=== PATIENT | male | born 1950 | race Caucasian/White ===

== ENCOUNTER 2017-08-14 08:59 | Day surgery (SDC) | payer OTHER ==
[~2017-08-14] VITALS: Ht 170.2 cm; Wt 99.8 kg
[~2017-08-14 08:59] MED LIST: AMIT50 PO; AMLO5 PO; ASCO500 PO; ASPI81CH PO; Augmentin 500-1 EACH PO; Bactrim Ds Tab1 EACH PO; CHOL10002 PO; CITA20 PO; CLON.2 PO; CLON.3 PO; CLOP75 PO; CYAN100 PO; Cleocin HCl300 MG PO; DILTIAZEM 24HR360 M1 PO; GLIP10 PO; INS70/30I; INS70/30PN SC; INSUL100I SC; LISHYD2025 PO; LISI20 PO; METF500 PO; POTCHL10ER PO; PRAV20 PO; TRAZ50 PO; Vitamin D2000 UNIT PO
== END 2017-08-14 22:57 | disposition home or self-care (01) ==
LOC: ORSCMMR 08:59
PROVIDERS: Internal Medicine Gastroenterology
PROC: 0DBM8ZX Excision of Descending Colon, Via Natural or Artificial Opening Endoscopic, Diagnostic (ICD-10-PCS; principal; 2017-08-14 10:30)
DX: R19.5 Other fecal abnormalities (principal); K63.5 Polyp of colon; K57.30 Diverticulosis of large intestine without perforation or abscess without bleeding; E11.9 Type 2 diabetes mellitus without complications; I10 Essential (primary) hypertension; I25.10 Atherosclerotic heart disease of native coronary artery without angina pectoris; Z79.82 Long term (current) use of aspirin; Z79.899 Other long term (current) drug therapy
CPT/HCPCS: 82947; 88305; J7120

== ENCOUNTER 2018-02-06 12:29 | Day surgery (SDC) | payer OTHER ==
[~2018-02-06] VITALS: Ht 170.2 cm; Wt 92.9 kg
== END 2018-02-06 15:56 | disposition home or self-care (01) ==
LOC: ORSCSDS 12:29
PROVIDERS: Podiatrist
PROC: 0QBM0ZZ Excision of Left Tarsal, Open Approach (ICD-10-PCS; principal; 2018-02-06 14:00)
DX: M77.52 Other enthesopathy of left foot and ankle (principal); R22.41 Localized swelling, mass and lump, right lower limb; E11.40 Type 2 diabetes mellitus with diabetic neuropathy, unspecified; I10 Essential (primary) hypertension; I25.10 Atherosclerotic heart disease of native coronary artery without angina pectoris; E78.00 Pure hypercholesterolemia, unspecified; Z87.891 Personal history of nicotine dependence; Z79.899 Other long term (current) drug therapy; Z79.84 Long term (current) use of oral hypoglycemic drugs
CPT/HCPCS: 82947; 88305; J0690; J2250; J7120

== ENCOUNTER 2020-11-03 10:59 | Day surgery (SDC) | payer OTHER ==
[~2020-11-03] VITALS: Ht 172.7 cm; Wt 97.6 kg
[~2020-11-03 10:59] MED LIST changes: +Aspirin EC81 MG PO; +GABA300 PO; +GLUCOPHAGE1000 M1 PO; +NORVASC5 MG PO; +NOVOLIN 70100 UNIT/3 SC; +POTA10T PO; +Pravastatin Sod40 MG PO; +VITAMIN D325 MC3 PO; +ZESTORETIC 20-251 EA PO
== END 2020-11-03 14:15 | disposition home or self-care (01) ==
LOC: ORSCSDS 10:59
PROVIDERS: Podiatrist
PROC: 0Y6M0ZB Detachment at Right Foot, Partial 2nd Ray, Open Approach (ICD-10-PCS; principal; 2020-11-03 12:30)
PROC: 0Y6M0Z9 Detachment at Right Foot, Partial 1st Ray, Open Approach (ICD-10-PCS; principal; 2020-11-03 12:30)
PROC: 0Y6M0ZC Detachment at Right Foot, Partial 3rd Ray, Open Approach (ICD-10-PCS; principal; 2020-11-03 12:30)
PROC: 0Y6M0ZF Detachment at Right Foot, Partial 5th Ray, Open Approach (ICD-10-PCS; principal; 2020-11-03 12:30)
PROC: 0Y6M0ZD Detachment at Right Foot, Partial 4th Ray, Open Approach (ICD-10-PCS; principal; 2020-11-03 12:30)
DX: L97.521 Non-pressure chronic ulcer of other part of left foot limited to breakdown of skin (principal); M20.41 Other hammer toe(s) (acquired), right foot; E11.51 Type 2 diabetes mellitus with diabetic peripheral angiopathy without gangrene; I10 Essential (primary) hypertension; N18.9 Chronic kidney disease, unspecified; E11.40 Type 2 diabetes mellitus with diabetic neuropathy, unspecified; I25.10 Atherosclerotic heart disease of native coronary artery without angina pectoris; Z79.01 Long term (current) use of anticoagulants; Z87.891 Personal history of nicotine dependence; Z79.84 Long term (current) use of oral hypoglycemic drugs
CPT/HCPCS: 82947; 88307; 88311; A9270; J0690; J1100; J2405; J2704; J3010

== ENCOUNTER 2020-11-30 09:35 | Inpatient (IN) | payer OTHER, MEDICARE ==
[~2020-11-30] VITALS: Ht 172.7 cm; Wt 98.6 kg
[2020-11-30 10:14] LABS: BASOPHILS ABSOLUTE AUTO 0.05 K/mm3 (0.00-0.23); BASOPHILS PERCENT AUTO 0 % (0-2); EOSINOPHILS PERCENT AUTO 0 % (0-6); Hematocrit 34.6 % (37.0-53.0); IMMATURE GRAN ABSOLUTE AUTO 0.35 K/mm3 (0.00-0.10); IMMATURE GRAN PERCENT AUTO 2 % (0-1); LYMPHOCYTES ABSOLUTE AUTO 1.04 K/mm3 (0.84-5.20); LYMPHOCYTES PERCENT AUTO 6 % (21-46); MONOCYTES ABSOLUTE AUTO 1.22 K/mm3 (0.16-1.47); MONOCYTES PERCENT AUTO 7 % (4-13); Mean Corpuscular HGB 29.3 pg (26.0-34.0); Mean Corpuscular HGB Conc 34.7 g/dL (31.5-36.5); Mean Corpuscular Volume 84 fL (80-100); Mean Platelet Volume 9.8 fL (9.1-12.4); NEUTROPHILS PERCENT AUTO 85 % (41-73); Platelet Count 395 K/mm3 (150-400); RDW Coefficient Variation 12.4 % (11.7-14.2); White Blood Cell Count 17.66 K/mm3 (4.00-11.30)
[2020-11-30 10:35] LABS: Albumin, Blood 2.9 g/dL (3.4-5.0); Albumin/Globulin Ratio 0.6 (0.8-1.8); Bilirubin, Total 0.5 mg/dL (0.1-1.0); Calcium, Blood 10.8 mg/dL (8.5-10.1); Creatinine, Blood 1.28 mg/dL (0.60-1.20); Globulin, Blood 4.9 g/dL (2.2-4.0); Potassium, Blood 3.8 mmol/L (3.5-5.5); Total Protein, Blood 7.8 g/dL (6.4-8.2)
[2020-11-30] MEDS ORDERED: AMOCLA875 PO (12:23)
[2020-11-30] MEDS ORDERED: Zofran4 MG PO (12:23)
[2020-11-30] MEDS ORDERED: AMLO5 PO (12:35)
[2020-11-30] MEDS ORDERED: NOVOLIN 70100 UNIT/4 SC (13:46)
[2020-11-30 17:03] LABS: Source, Urine Clean Catch
[2020-11-30 17:09] LABS: Bilirubin, Urine Neg (Neg); Blood, Urine 3+ (Neg); Glucose Qualitative, Urine 4+ (Neg); Ketones, Urine 1+ (Neg); Leukocyte Esterase, Urine Neg (Neg); Nitrite, Urine Neg (Neg); Protein, Urine 3+ (Neg); Urobilinogen, Urine NORM (Normal)
--- NOTE | 2020-11-30 17:10 | NUR ---
SPOKE WITH DR. BETH REGARDING CRITICAL LOW MAG. TELEPHONE ORDER GIVEN FOR 2G MAG IV AND REPEAT MAG LAB IN AM. ORDERS PLACED.
[2020-11-30 17:31] LABS: Color, Urine Yellow (P-Yellow)
[2020-11-30 17:32] LABS: Appearance, Urine Clear (Clear); White Blood Cells, Urine 0-2 /hpf (0-5)
[2020-11-30 17:33] LABS: Bacteria Rare /hpf; Hyaline Casts 0-2 /lpf (0-2); Squamous Epithelial Cells Rare /hpf (Few)
--- NOTE | 2020-11-30 17:40 | NUR ---
SHIFT SUMMARY; ASSUMED CARE IN PCU FROM ER. MOVED FROM ER [facility]ALLAS TO BED INDEPENDANLTY. A/A/OX4, IV ABX AND NS INFUSING ON ARRIVAL. 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 SURGICAL SITE IS RED AND DAINING YELLOW-SERIOUSANGUINOUS FLUID. REWRAPPED WITH NON ADHERANT AND KERLEX. SECOND IV STARTED IN RIGHT FOREARM. MAG INFUSING AND NS INFUSING AT 125ML/HR PER ORDERS. REPOSITIONS SELF IN BED NEEDED, USING URINAL AT BEDSIDE. STATES AMBULATES AT HOME WITH A CANE. ORDERS IN PLACE FOR NPO AFTER MIDNIGHT. VSS, WILL CONTINUE TO MONITOR AND TREAT UNTIL CHANGE OF SHIFT.
[2020-12-01 02:04] LABS: BASOPHILS ABSOLUTE AUTO 0.06 K/mm3 (0.00-0.23); BASOPHILS PERCENT AUTO 0 % (0-2); EOSINOPHILS PERCENT AUTO 0 % (0-6); Hematocrit 29.9 % (37.0-53.0); Hemoglobin 10.2 g/dL (13.5-17.5); IMMATURE GRAN ABSOLUTE AUTO 0.21 K/mm3 (0.00-0.10); IMMATURE GRAN PERCENT AUTO 2 % (0-1); LYMPHOCYTES ABSOLUTE AUTO 1.41 K/mm3 (0.84-5.20); LYMPHOCYTES PERCENT AUTO 10 % (21-46); MONOCYTES ABSOLUTE AUTO 0.92 K/mm3 (0.16-1.47); MONOCYTES PERCENT AUTO 7 % (4-13); Mean Corpuscular HGB 28.7 pg (26.0-34.0); Mean Corpuscular HGB Conc 34.1 g/dL (31.5-36.5); Mean Corpuscular Volume 84 fL (80-100); Mean Platelet Volume 9.8 fL (9.1-12.4); NEUTROPHILS ABSOLUTE AUTO 11.42 K/mm3 (1.96-9.15); NEUTROPHILS PERCENT AUTO 81 % (41-73); Platelet Count 365 K/mm3 (150-400); RDW Coefficient Variation 12.6 % (11.7-14.2); RDW Standard Deviation 38.6 fL (35.1-46.3); Red Blood Cell Count 3.55 M/mm3 (4.30-5.90); White Blood Cell Count 14.02 K/mm3 (4.00-11.30)
[2020-12-01 02:23] LABS: Alanine Aminotransfer (ALT/SGP 15 U/L (12-78); Albumin, Blood 2.3 g/dL (3.4-5.0); Albumin/Globulin Ratio 0.5 (0.8-1.8); Alk Phos 62 U/L (50-136); Anion Gap 6 mmol/L (6-16); Aspartate Aminotrans (AST/SGOT 17 U/L (12-37); Bilirubin, Total 0.4 mg/dL (0.1-1.0); Blood Urea Nitrogen 24 mg/dL (8-24); Bun/Creatinine Ratio 20.7 (12.0-20.0); CO2, Blood 26 mmol/L (21-32); Calcium, Blood 9.2 mg/dL (8.5-10.1); Chloride, Blood 103 mmol/L (98-108); Creatinine, Blood 1.16 mg/dL (0.60-1.20); Globulin, Blood 4.2 g/dL (2.2-4.0); Glomerular Filtration Rate >60 (60-); Glucose, Blood 146 mg/dL (70-99); Magnesium, Blood 1.6 mg/dL (1.6-2.4); Potassium, Blood 3.5 mmol/L (3.5-5.5); Sodium, Blood 135 mmol/L (136-145); Total Protein, Blood 6.5 g/dL (6.4-8.2); Troponin I 0.088 ng/mL (0.000-0.040)
--- NOTE | 2020-12-01 06:17 | NUR ---
SHIFT SUMMARY NO ACUTE CHANGES THIS SHIFT. PT A&OX4. SP02>92% ON RA. TELMETRY READS SR, HR 90'S. PT DENIES PAIN. PT USED URINAL AT BEDSIDE, THOUGH MISSED URINAL A FEW TIMES AND SOILED FLOOR, HOUSEKEEPING CALLED TO CLEAN. PT R FOOT RE DRESSED, PICTURES TAKEN AND PLACED IN CHART. NS INFUSED PER EMAR. PT SLEPT MOST OF THE NIGHT. CALL LIGHT IN REACH. WILL GIVE REPORT TO ONCOMING NURSE.
--- NOTE | 2020-12-01 08:00 | NUR ---
pt laying in bed awake a/ox3, pleasant and cooperative with care, follows commands well, denies pain or needs at this time, is thirsty and would like water, lungs are clear t/o, dim in bases, resp even and unlabored, no cough noted, hrr, tele in place running sr in the 90's, no edema noted, iv infusing ns at 125mls/hr, btx4, abd round soft nontender, voids without diff, skin has wound to left foot where toes were amputated, pictures in chart, otherwise c/w/d, delmer carrasquillo, call light in reach. npo until notified about poss surgery.
--- NOTE | 2020-12-01 11:24 | NUR ---
Dr. Harding was contacted regarding poss surgery today, he states he wont be in until this evening, ok to eat. Istrate in room. call light in reach.
--- NOTE | 2020-12-01 18:48 | NUR ---
pt states he's feeling a lot better, does have some occ mild confusion, worked with PT today and got up to the chair, gave himself a bed bath. no further changes or needs, call light in reach.
[2020-12-02 04:09] LABS: Hematocrit 29.4 % (37.0-53.0); Hemoglobin 9.9 g/dL (13.5-17.5); Mean Corpuscular HGB 28.9 pg (26.0-34.0); Mean Corpuscular HGB Conc 33.7 g/dL (31.5-36.5); Mean Corpuscular Volume 86 fL (80-100); Mean Platelet Volume 9.7 fL (9.1-12.4); Platelet Count 341 K/mm3 (150-400); RDW Standard Deviation 40.9 fL (35.1-46.3); Red Blood Cell Count 3.42 M/mm3 (4.30-5.90); White Blood Cell Count 11.79 K/mm3 (4.00-11.30)
[2020-12-02 04:30] LABS: Alanine Aminotransfer (ALT/SGP 33 U/L (12-78); Albumin, Blood 2.1 g/dL (3.4-5.0); Albumin/Globulin Ratio 0.5 (0.8-1.8); Alk Phos 54 U/L (50-136); Anion Gap 7 mmol/L (6-16); Aspartate Aminotrans (AST/SGOT 54 U/L (12-37); Bilirubin, Total 0.2 mg/dL (0.1-1.0); Blood Urea Nitrogen 25 mg/dL (8-24); Bun/Creatinine Ratio 23.4 (12.0-20.0); CO2, Blood 25 mmol/L (21-32); Calcium, Blood 8.4 mg/dL (8.5-10.1); Chloride, Blood 104 mmol/L (98-108); Creatinine, Blood 1.07 mg/dL (0.60-1.20); Globulin, Blood 4.2 g/dL (2.2-4.0); Glomerular Filtration Rate >60 (60-); Glucose, Blood 58 mg/dL (70-99); Magnesium, Blood 1.6 mg/dL (1.6-2.4); Phosphorus, Blood 2.4 mg/dL (2.5-4.9); Potassium, Blood 3.2 mmol/L (3.5-5.5); Sodium, Blood 136 mmol/L (136-145); Total Protein, Blood 6.3 g/dL (6.4-8.2)
--- NOTE | 2020-12-02 06:14 | NUR ---
SHIFT SUMMARY NO ACUTE CHANGES THIS SHIFT. PT A&OX4. SP02>92% ON RA. TELEMETRY READS SR, HR 90'S. PT USED URINAL AT BEDSIDE. PT DENIES PAIN. NPO AT MIDNIGHT PER ORDERS. PT SLEPT T/O NIGHT. CALL LIGHT IN REACH. WILL GIVE REPORT TO ONCOMING NURSE.
--- NOTE | 2020-12-02 10:15 | NUR ---
PT LEFT FOR SURGERY VIA GURNEY.
[2020-12-02 10:42] LABS: Influenza A, PCR NEGATIVE (NEGATIVE); Influenza B, PCR NEGATIVE (NEGATIVE); Resp Syncytial Virus, PCR NEGATIVE (NEGATIVE); SARS-Cov-2 (COVID-19) PCR, MMC NEGATIVE (NEGATIVE)
--- NOTE | 2020-12-02 11:04 | NUR ---
PT LAYING IN BED, WAKES EASILY, V.S. STABLE, AFEBRILE, A/OX3, DIFF TRACKING CONVERSATION AT TIMES, LUNGS ARE CLEAR T/O, DIM BASES, RESP EVEN AND UNLABORED, NO COUGH NOTED, CURRENTLY ON R/A, HRR, TELE IN PLACE RUNNING SR PER MONITOR, SEE STRIP, NO EDEMA NOTED, PP FOUND VIA DOPPLER, IV SITES ARE CLEAR AND PATENT, INFUSING NS AT 125MLS/HR, BTX4, ABD ROUND SOFT NONTENDER, VOIDS VIA URINAL, BUT MISSES FREQ, SKIN HAS WOUND TO RIGHT FOOT WITH DRESSING IN PLACE, IS DRY AND INTACT, NO DRAINAGE NOTED, BRIAN GEE, CALL LIGHT IN REACH,
--- NOTE | 2020-12-02 11:33 | NUR ---
12/02/20 1133 SWATHIJHON PT RECEIVED SCHEDULED DOSE OF ANTIBIOTIC PER DR ORDERS PRIOR TO PROCEDURE
--- NOTE | 2020-12-02 12:57 | NUR ---
D5 @ 75ML AND D5 WITH K AT 100ML INFUSING PER PUMP WHEN ARRIVED IN PACU
--- NOTE | 2020-12-02 13:06 | NUR ---
DR MARTINEZ AT BEDSIDE AWARE OF PT FEELING HIS TONGUE IS SWOLLEN. TONGUE DOES APPEAR LARGE . THINKS NO LARGER NOW THAN PRE OP RESP E/U O2 AT 4 L N/C USING MOIST SWAB NO NEW ORDERS FROM
--- NOTE | 2020-12-02 14:00 | NUR ---
ASSUMED CARE: PT ARRIVES POST CODE BLUE FROM OR. DEBRIDEMENT OF RIGHT FOOT COMPLETED BY DR SALEH. CODE CALLED BECAUSE PT'S AIRWAY BECAME SWOLLEN AND LOST AIRWAY. SEE CODE SHEET IN CHART. BILATERAL WRIST RESTRAINTS APPLIED. MAGUIRE CATHETER IN PLACE. INTUBATED WITH SETTINGS AC 14/500/40/5.
[2020-12-02 14:03] LABS: Hematocrit 38.6 % (37.0-53.0); Hemoglobin 12.7 g/dL (13.5-17.5); Mean Corpuscular HGB 28.2 pg (26.0-34.0); Mean Corpuscular HGB Conc 32.9 g/dL (31.5-36.5); Mean Corpuscular Volume 86 fL (80-100); Mean Platelet Volume 9.6 fL (9.1-12.4); NRBC ABSOLUTE 0.02 K/mm3 (0.00-0.02); NRBC Auto 0.2 /100 WBC (0.0-0.2); Platelet Count 468 K/mm3 (150-400); RDW Standard Deviation 40.5 fL (35.1-46.3); White Blood Cell Count 11.51 K/mm3 (4.00-11.30)
[2020-12-02 14:13] LABS: Anion Gap 10 mmol/L (6-16); Blood Urea Nitrogen 21 mg/dL (8-24); Bun/Creatinine Ratio 18.4 (12.0-20.0); CO2, Blood 24 mmol/L (21-32); Calcium, Blood 8.1 mg/dL (8.5-10.1); Chloride, Blood 102 mmol/L (98-108); Creatinine, Blood 1.14 mg/dL (0.60-1.20); Glomerular Filtration Rate >60 (60-); Glucose, Blood 130 mg/dL (70-99); Magnesium, Blood 1.5 mg/dL (1.6-2.4); Phosphorus, Blood 3.3 mg/dL (2.5-4.9); Sodium, Blood 136 mmol/L (136-145)
[2020-12-02 14:18] LABS: International Normalized Ratio 1.12
[2020-12-02 14:28] LABS: BAND PERCENT MAN 7 % (0-8); BASOPHILS PERCENT MAN 0 % (0-2); EOSINOPHILS ABSOLUTE MAN 0.23 K/mm3 (0.00-0.68); EOSINOPHILS PERCENT MAN 2 % (0-6); LYMPHOCYTES % ATYPICAL MANUAL 1 % (0-0); LYMPHOCYTES PERCENT MAN 39 % (21-46); METAMYELOCYTE ABSOLUTE MAN 0.34 K/mm3 (0.00-0.00); METAMYELOCYTE PERCENT MAN 3 % (0-0); MONOCYTES ABSOLUTE MAN 0.46 K/mm3 (0.16-1.47); MONOCYTES PERCENT MAN 4 % (4-13); MYELOCYTE ABSOLUTE MAN 0.11 K/mm3 (0.00-0.00); MYELOCYTE PERCENT MAN 1 % (0-0); NEUTROPHILS ABSOLUTE MAN 5.75 K/mm3 (1.96-9.15); SEG NEUTROPHILS PERCENT MAN 43 % (41-73); TOTAL CELLS COUNTED 100
[2020-12-02 14:32] LABS: Base Excess Venous -0.9 mmol/L; Bicarbonate Venous 22.9 mmol/L (24.0-30.0); PCO2 Venous 42.4 mmHg (38-42); PO2 Venous 34.9 mmHg (38-42); pH Blood Venous 7.37 (7.34-7.37)
[2020-12-02 15:12] LABS: Vancomycin, Trough 8.6 ug/mL (5.0-10.0)
--- NOTE | 2020-12-02 15:12 | NUR ---
TRANSFER TO ICU 13 PER ANIKA AT 1340 SEE CODE RECORD
--- NOTE | 2020-12-02 15:21 | NUR ---
DR DELGADILLO CAME TO SEE PT AND WAS MADE AWARE OF INCREASED SWELLING OF TONGUE AT 2.5CM IN THICKNESS. SWELLING AROUND EYES INCREASED AND URTICARIA NOTED TO ABDOMEN AND CRAWLING DOWN LEGS. SEDATION WITH PROPOFOL AT 50MCG/KG/MIN AT THIS TIME. DR DELGADILLO ORDERED EPI GTT AT 0.05MCG/MIN AT THIS TIME. ASSISTANT STORE LEADER PLACING PICC LINE AT THIS TIME. DR DELGADILLO INSTRUCTS FOR BOLUS OF LR AND FOR PREVIOUSLY ORDERED POTASSIUM TO BE GIVEN.
--- NOTE | 2020-12-02 16:18 | NUR ---
EPI REMAINS AT 0.05MCG/KG WITH PROPOFOL AT 50 MCG/KG/MIN. HIVES TO ABDOMEN AND LEGS NO LONGER NOTED. SWELLING AROUND EYES IS LESSENED AND TONGUE HAS DECREASED TO 2CM THICK. PT MOVES ALL EXTREMITIES IN RESPONSE TO NOXIOUS STIMULI
--- NOTE | 2020-12-02 18:00 | NUR ---
PT'S VANCO WAS RUNNING AND PT WAS NOTED TO HAVE INCREASD EDEMA AROUND EYES AND TONGUE SWELLING HAD WORSENED. BREATH SOUNDS WENT FROM CLEAR UPON ARRIVAL TO COARSE. STOPPED VANCO AND CALLED DR DELGADILLO TO ROOM. AGRICULTURAL ENGINEER AWARE. MED CHANGES MADE WITH CONCERN FOR POSSIBLE REACTION.
--- NOTE | 2020-12-02 18:44 | NUR ---
SHIFT SUMMARY: PT REMAINS INTUBATED AT 14/500/30%/5. PROPOFOL AT 60MCG/KG/MIN. EPI AT 0.1 MCG/KG. AGITATED AT TIMES. RECENTLY MEDICATED WITH ATIVAN. WILL REPORT TO REZA RN
[2020-12-03 00:33] LABS: Glucose, Blood 619 mg/dL (70-99)
--- NOTE | 2020-12-03 02:20 | NUR ---
PATIENT BLOOD GLUCOSE ON ISTAT 601 AT 0220
[2020-12-03 03:15] LABS: BASOPHILS ABSOLUTE AUTO 0.12 K/mm3 (0.00-0.23); BASOPHILS PERCENT AUTO 1 % (0-2); EOSINOPHILS PERCENT AUTO 0 % (0-6); Hematocrit 32.9 % (37.0-53.0); Hemoglobin 11.1 g/dL (13.5-17.5); IMMATURE GRAN ABSOLUTE AUTO 1.27 K/mm3 (0.00-0.10); IMMATURE GRAN PERCENT AUTO 5 % (0-1); LYMPHOCYTES ABSOLUTE AUTO 1.47 K/mm3 (0.84-5.20); LYMPHOCYTES PERCENT AUTO 6 % (21-46); MONOCYTES ABSOLUTE AUTO 0.82 K/mm3 (0.16-1.47); MONOCYTES PERCENT AUTO 4 % (4-13); Mean Corpuscular HGB 28.8 pg (26.0-34.0); Mean Corpuscular HGB Conc 33.7 g/dL (31.5-36.5); Mean Corpuscular Volume 85 fL (80-100); Mean Platelet Volume 9.8 fL (9.1-12.4); NEUTROPHILS PERCENT AUTO 84 % (41-73); NRBC ABSOLUTE 0.03 K/mm3 (0.00-0.02); NRBC Auto 0.1 /100 WBC (0.0-0.2); Platelet Count 506 K/mm3 (150-400); RDW Standard Deviation 40.3 fL (35.1-46.3); Red Blood Cell Count 3.86 M/mm3 (4.30-5.90); White Blood Cell Count 23.48 K/mm3 (4.00-11.30)
[2020-12-03 03:33] LABS: BAND PERCENT MAN 3 % (0-8); BASOPHILS PERCENT MAN 0 % (0-2); EOSINOPHILS PERCENT MAN 0 % (0-6); LYMPHOCYTES ABSOLUTE MAN 1.87 K/mm3 (0.84-5.20); LYMPHOCYTES PERCENT MAN 8 % (21-46); METAMYELOCYTE ABSOLUTE MAN 0.93 K/mm3 (0.00-0.00); METAMYELOCYTE PERCENT MAN 4 % (0-0); MONOCYTES ABSOLUTE MAN 0.46 K/mm3 (0.16-1.47); MONOCYTES PERCENT MAN 2 % (4-13); NEUTROPHILS ABSOLUTE MAN 20.19 K/mm3 (1.96-9.15); SEG NEUTROPHILS PERCENT MAN 83 % (41-73); TOTAL CELLS COUNTED 100
[2020-12-03 03:34] LABS: Alanine Aminotransfer (ALT/SGP 36 U/L (12-78); Albumin, Blood 2.1 g/dL (3.4-5.0); Albumin/Globulin Ratio 0.5 (0.8-1.8); Alk Phos 68 U/L (50-136); Anion Gap 11 mmol/L (6-16); Aspartate Aminotrans (AST/SGOT 98 U/L (12-37); Bilirubin, Total 0.3 mg/dL (0.1-1.0); Blood Urea Nitrogen 26 mg/dL (8-24); Bun/Creatinine Ratio 21.5 (12.0-20.0); CO2, Blood 20 mmol/L (21-32); Calcium, Blood 7.7 mg/dL (8.5-10.1); Chloride, Blood 98 mmol/L (98-108); Creatinine, Blood 1.21 mg/dL (0.60-1.20); Globulin, Blood 4.3 g/dL (2.2-4.0); Glomerular Filtration Rate >60 (60-); Glucose, Blood 583 mg/dL (70-99); Magnesium, Blood 1.6 mg/dL (1.6-2.4); Phosphorus, Blood 3.4 mg/dL (2.5-4.9); Potassium, Blood 3.8 mmol/L (3.5-5.5); Sodium, Blood 129 mmol/L (136-145); Total Protein, Blood 6.4 g/dL (6.4-8.2)
--- NOTE | 2020-12-03 06:34 | NUR ---
END OF SHIFT SUMMARY: PATIENT KEPT SEDATED OVERNIGHT FOR AIRWAY PROTECTION. PATIENT HAS REMAINED IN NSR SINCE PRECEDEX WAS STARTED AT START OF SHIFT. NO VENT CHANGES OVERNIGHT AND HAS TOLERATED THE CURRENT SETTINGS. NO ORAL CARE PROVIDED OVERNIGHT PER DR. DELGADILLO AMD WILL PASS ON TO UPCOMING SHIFT.
--- NOTE | 2020-12-03 07:32 | NUR ---
ASSUMED CARE: PT REMAINS INTUBATED WITH SETTINGS OF AC 14/500/30%/5. EPI GTT RUNNING AT 0.1 MCG/KG. PRECEDEX RUNNING AT 0.2MCG. PROPOFOL AT 50MCG. INSULIN GTT ADJUSTED TO 8 UNITS/HR. SWELLING AROUND EYES NOTED AND TONGUE SWELLING CONTINUES. NSR ON TELE WITH PACS AND PVCS. MAGUIRE IN PLACE WITH ADEQUATE OUTPUT. NO ACUTE NEEDS AT THIS TIME.
--- NOTE | 2020-12-03 11:46 | NUR ---
DR DELGADILLO CAME TO SEE PT THIS AM AND ORDERED A TRIAL OF LOW DOSE CEFEPIME TO RULE OUT CAUSE FOR ANAPHYLAXIS. EPI HAS BEEN OFF FOR 90 MINUTES. PT CURRENTLY RESTING COMFORTABLE WITH PRECEDEX AT 0.2MCG AND PROPOFOL AT 40 MCG. MINIMAL SWELLING NOTED AROUND EYES, TONGUE MEASURING AT 1.75 CENTIMETERS THICK. NO URTICARIA NOTED T/O BODY AT THIS TIME. LUNG SOUNDS CLEAR
--- NOTE | 2020-12-03 13:38 | NUR ---
ABOUT 90 MINUTES AFTER LOW DOSE OF CEFEPIME GIVEN PT BECAME DIAPHORETIC WITH INCREASED TONGUE SWELLING AND COARSE LUNG SOUNDS. CONTACTED DR DELGADILLO WHO INSTRUCTED TO RESTART EPI. EPI RESTARTED AT 0.05MCG/KG. INSTRUCTED TO LIST CEFEPIME ALLERGY
--- NOTE | 2020-12-03 14:14 | NUR ---
PT APPEARS TO BE TOLERATING EPI AT 0.05 MCG/KG. SWELLING IN TONGUE AND AROUND EYES IS DECREASING. PT OPENS EYES TO SOUND AND ATTEMPTS TO FOLLOW INSTRUCTIONS. MOVES ALL EXTREMETIES WITH WEAKNESS IN HANDS BUT DOES MOVE THESE WELL. PRECEDEX AT 0.2MCG AND PROPOFOL AT 30MCG AT THIS TIME.
--- NOTE | 2020-12-03 15:30 | NUR ---
DR DELGADILLO CAME TO SEE PT AND INSTRUCTS TO KEEP EPI RUNNING FOR 1 MORE HOUR THEN STOP AND SEE HOW PT TOLERATES. CERTIFIED NURSE ASKED IF SOLUMEDROL SHOULD BE STARTED FOR MORE BROKERAGE BRANCH MANAGER ASSISTANCE. STATED THAT SINCE PT DOES NOT HAVE WHEEZING, SOLUMEDROL WOULD NOT BE HELPFUL FOR ANGIOEDEMA WHICH IS WHAT HE STATES IS THE CAUSE OF PT'S SWELLING. INSTRUCTS FOR Q2 HOUR BLOOD SUGARS FOR A FEW MORE HOURS AFTER EPI IS STOPPED.
--- NOTE | 2020-12-03 15:55 | NUR ---
DISCUSSED WITH DR DELGADILLO PT'S HOME INSULIN REGIMEN. INSTRUCTS TO HOLD FOR TODAY AND TREND SUGARS AND CONTACT TWISTING FRAME FIXER IF SUGAR BECOMES ELEVATED AGAIN
--- NOTE | 2020-12-03 18:42 | NUR ---
SHIFT SUMMARY: PT REMAINS INTUBED WITH SETTINGS OF AC 14/500/30%/5. PROPOFOL AT 45MCG AND PRECEDEX AT 0.4MCG. DR DELGADILLO REQUESTING INCREASED SEDATION TO DECREASE RISK OF SELF EXTUBATION. SWELLING INCREASED AFTER TRIAL DOSE OF CEFEPIME. CEFEPIME NOW LISTED AN ALLERGY. LEVOPHED AND INSULIN GTTS OFF AT THIS TIME. PLAN IS FOR PT TO REMAIN INTUBATED FOR A FEW DAYS UNTIL SWELLING IS DOWN AND PT CAN PROTECT AIRWAY AGAIN. FAMILY HAS BEEN UPDATED. NO ACUTE NEEDS AT THIS TIME.
--- NOTE | 2020-12-03 21:04 | NUR ---
ASUMPTION OF CARE: PATIENT RESTING COMFORRTABLY ON VENT ON CURRENT SETTIGS 30% . PATIENT LOCALIZES PAIN AND MOVES EXTREMITIES SPONTANEOUSLY. PROPOFOL AT 45 AND PRECEDEX AT 0.4. PATIENT REMAINS SEDATED RASS -4 AND RESTRAINED FOR AIRWAY PROTECTION. NSR AT THIS TIME WITH OCCASIONAL PVC'S AND BP REMAINS STABLE. WILL CONTINUE TO MONITOR
[2020-12-04 03:33] LABS: BASOPHILS ABSOLUTE AUTO 0.03 K/mm3 (0.00-0.23); BASOPHILS PERCENT AUTO 0 % (0-2); EOSINOPHILS ABSOLUTE AUTO 0.03 K/mm3 (0.00-0.68); EOSINOPHILS PERCENT AUTO 0 % (0-6); Hematocrit 27.8 % (37.0-53.0); IMMATURE GRAN PERCENT AUTO 2 % (0-1); LYMPHOCYTES ABSOLUTE AUTO 2.65 K/mm3 (0.84-5.20); LYMPHOCYTES PERCENT AUTO 16 % (21-46); MONOCYTES PERCENT AUTO 4 % (4-13); Mean Corpuscular HGB 28.2 pg (26.0-34.0); Mean Corpuscular HGB Conc 32.4 g/dL (31.5-36.5); Mean Corpuscular Volume 87 fL (80-100); Mean Platelet Volume 9.6 fL (9.1-12.4); NEUTROPHILS ABSOLUTE AUTO 12.91 K/mm3 (1.96-9.15); NEUTROPHILS PERCENT AUTO 78 % (41-73); NRBC ABSOLUTE 0.02 K/mm3 (0.00-0.02); NRBC Auto 0.1 /100 WBC (0.0-0.2); Platelet Count 314 K/mm3 (150-400); RDW Standard Deviation 41.5 fL (35.1-46.3); Red Blood Cell Count 3.19 M/mm3 (4.30-5.90); White Blood Cell Count 16.62 K/mm3 (4.00-11.30)
[2020-12-04 03:49] LABS: Anion Gap 4 mmol/L (6-16); Blood Urea Nitrogen 22 mg/dL (8-24); CO2, Blood 27 mmol/L (21-32); Calcium, Blood 7.7 mg/dL (8.5-10.1); Chloride, Blood 107 mmol/L (98-108); Glomerular Filtration Rate >60 (60-); Glucose, Blood 141 mg/dL (70-99); Potassium, Blood 3.8 mmol/L (3.5-5.5); Sodium, Blood 138 mmol/L (136-145)
--- NOTE | 2020-12-04 06:01 | NUR ---
END OF SHIFT SUMMARY: MO CHANGES WERE MADE OVERNIGHT. PATIENT HAS REMAINED STABLE ON VENT WITH NO EVIDENVE OF OVERBREATHING. NO ORAL CARE PROVIDED PER MD ORDER BUT THE SWELLING ON TONGUE HAS SIGNIFICANTLY DECREASED AND YOU CAN NOW SUCTION AROUND HIS TONGUE. VERY MINIMAL SECRETIONS TO SUCTION. PATIENT HAS WOKEN UP A FEW TIMES AND HAS OPENED HIS EYES, STILL MOVING EXTREMITIES SPOMTAMEOUSLY. SEDATION ADJUSTED A FEW TIMES TO MAINTAIN RASS -4. PROPOFOL 40, PRECEDEX .2. REMAINS NSR WITH RARE PVCS
--- NOTE | 2020-12-04 07:10 | NUR ---
Received report from Tiffany AMATO. Patient is intubated and sedated. He has 7.5 ET and is 27 cm at tongue and vent settings of AC 14, TV 500, FiO2 30% PEEP 5.0 with sats >90%. His tongue remains swollen and pertrudes from mouth about twice normal size and has reduced and is no longer tight in mouth. He has PICC line to [facility], dressing WNL's and is infusing Propofol 40 mcg/kg/min, Precedex 0.2 mcg/kg/hr and NS TKO. He has 16Fr Teran draining to gravity clear yellow urine. He has Ranjit bandage to right foot change last night, C/D/I. He is in bilateral soft wrist restraints for lineand patient safety.
--- NOTE | 2020-12-04 09:30 | NUR ---
No significant changes with patient. No vent or gtt changes. Dr Verdugo in room assesing patient. Patient has moderate thick secretions with ET suctioning. He continues to squirm and turn sideways in bed. VSS, See EMR.
--- NOTE | 2020-12-04 12:00 | NUR ---
Changed Propofol to 50 mcg/kg/min, Precedex 0.7 mcg/kg hr. No vent setting changes. Willl attempt to place og for PO meds. VSS See EMR.He continues to turn in bed and position feet over side of bed.
--- NOTE | 2020-12-04 13:30 | NUR ---
Patient has been resting quietly since increase of sedation. No vent setting changes or gtt changes. Good urine output. VSS, See EMR. Did not place OG as probable extubation tomorrow.
--- NOTE | 2020-12-04 15:30 | NUR ---
gave report to Marilin AMATO and she is assumeing care. Repositioned and he is resting quietly.
--- NOTE | 2020-12-04 16:32 | NUR ---
CARE ASSUMED AT 1600 PT SEDATED WITH PROPOFOL 50MCG, PRECEDEX 0.7MCG, RESTING QUIETLY WITH NO AGITATION/RESTLESSNESS NOTED. VSS, HR 60'S SINUS. LS CTA, VENT SETTINGS AC 14, Vt 500, PEEP 5, FIO2 30%, SPO2 97%, RR 14. DRESSING TO RLE CDI. TONGUE SWELLING HAS DECREASED SIGNIFICANTLY ACCORDING TO REPORT FROM PREVIOUS RN, IS NOT PROTRUDING FROM PATIENTS MOUTH BUT STILL REMAINS EDEMATOUS.
--- NOTE | 2020-12-04 18:18 | NUR ---
END OF SHIFT PT RESTING QUIETLY SINCE ASSUMPTION OF CARE, VSS, HR 60'S SINUS, BP TOLERATING SEDATION WELL. DRIPS AND VENT SETTINGS UNCHANGED, LS REMAIN CLEAR. GOOD URINE OUTPUT THIS SHIFT. PT REPOSITIONED, ETT SUCTIONING WITH SCANT OUTPUT THIS EVENING. DRESSING TO RLE CDI, RLE ELEVATED. TONGUE REMAINS MODERATELY SWOLLEN.
[2020-12-05 04:04] LABS: BASOPHILS ABSOLUTE AUTO 0.05 K/mm3 (0.00-0.23); BASOPHILS PERCENT AUTO 1 % (0-2); EOSINOPHILS ABSOLUTE AUTO 0.18 K/mm3 (0.00-0.68); EOSINOPHILS PERCENT AUTO 2 % (0-6); Hematocrit 29.1 % (37.0-53.0); Hemoglobin 9.7 g/dL (13.5-17.5); IMMATURE GRAN ABSOLUTE AUTO 0.69 K/mm3 (0.00-0.10); IMMATURE GRAN PERCENT AUTO 6 % (0-1); LYMPHOCYTES ABSOLUTE AUTO 2.25 K/mm3 (0.84-5.20); LYMPHOCYTES PERCENT AUTO 20 % (21-46); MONOCYTES ABSOLUTE AUTO 0.41 K/mm3 (0.16-1.47); MONOCYTES PERCENT AUTO 4 % (4-13); Mean Corpuscular HGB Conc 33.3 g/dL (31.5-36.5); Mean Corpuscular Volume 87 fL (80-100); Mean Platelet Volume 9.7 fL (9.1-12.4); NEUTROPHILS ABSOLUTE AUTO 7.53 K/mm3 (1.96-9.15); NEUTROPHILS PERCENT AUTO 68 % (41-73); NRBC ABSOLUTE 0.02 K/mm3 (0.00-0.02); NRBC Auto 0.2 /100 WBC (0.0-0.2); Platelet Count 309 K/mm3 (150-400); RDW Coefficient Variation 13.2 % (11.7-14.2); RDW Standard Deviation 41.9 fL (35.1-46.3); Red Blood Cell Count 3.35 M/mm3 (4.30-5.90); White Blood Cell Count 11.11 K/mm3 (4.00-11.30)
[2020-12-05 04:22] LABS: Anion Gap 6 mmol/L (6-16); Blood Urea Nitrogen 19 mg/dL (8-24); Bun/Creatinine Ratio 20.5 (12.0-20.0); CO2, Blood 26 mmol/L (21-32); Chloride, Blood 107 mmol/L (98-108); Creatinine, Blood 0.93 mg/dL (0.60-1.20); Glomerular Filtration Rate >60 (60-); Glucose, Blood 213 mg/dL (70-99); Potassium, Blood 3.8 mmol/L (3.5-5.5); Sodium, Blood 139 mmol/L (136-145)
[2020-12-05 04:31] LABS: BAND PERCENT MAN 4 % (0-8); BASOPHILS PERCENT MAN 0 % (0-2); EOSINOPHILS ABSOLUTE MAN 0.22 K/mm3 (0.00-0.68); EOSINOPHILS PERCENT MAN 2 % (0-6); LYMPHOCYTES ABSOLUTE MAN 1.55 K/mm3 (0.84-5.20); LYMPHOCYTES PERCENT MAN 14 % (21-46); MONOCYTES PERCENT MAN 0 % (4-13); NEUTROPHILS ABSOLUTE MAN 9.33 K/mm3 (1.96-9.15); SEG NEUTROPHILS PERCENT MAN 80 % (41-73); TOTAL CELLS COUNTED 100
--- NOTE | 2020-12-05 06:17 | NUR ---
END OF SHIFT SUMMARY: PATIENT TOLERATED VENT OVERNIGHT ON CURRENT SETTINGS 30/5/14/500 WITH VERY MINIMAL SECRETIONSS. PATIENT REMAINS ON PROPOFOL AT 50 AND PRECEDEX AT 0.5 TO PROTECT AIRWAY. PATIENT WILL OPEN EYES AND MOVES EXTREMETIES SPONTANEOUSLY. GOOD URINE OUTPUT THAT WAS CLEAR/YELLOW. TONGUE SWELLING CONTINUES TO DECREASE WITH THE POTENTIAL TO BE EXTUBATED TODAY. NO SEDATION VACATION DONE ON NIGHTS DUE TO WANTING TO KEEP PATIENT RASS -4 -5
--- NOTE | 2020-12-05 11:49 | NUR ---
CARE ASSUMED ASSESSMENTS COMPLETED, PT REMAINS INTUBATED, VENT AC, 14, VT 500, PEEP 5, FIO2 30%. SPO2 >90%, RR 14-15. SEDATED WTIH PROPOFOL 50MCG AND PRECEDEX 0.5MCG, BP TOLERATING WELL, HR 59 SINUS. PT OPENS EYES OCCASIONALLY AND AYALA, DOSE NOT TRACK OR FOLLOW COMMANDS AT THIS TIME. LS CLEAR, SCANT THIN BLOOD TINGED SECRETIONS FROM ETT. TONGUE SWELLING HAS IMPROVED FROM LAST EVENING, PT'S MOUTH ABLE TO BE OPENED AND ROOF/BACK OF MOUTH VISUALIZED. NO OTHER FACIAL SWELLING NOTED, NO RASH OR HIVES PRESENT. MAGUIRE SECURED, PATENT AND DRAINING CLEAR YELLOW URINE. DRESSING TO RLE CDI, RLE ELEVATED. PT REPOSITIONED, AM CARES COMPLETED.
--- NOTE | 2020-12-05 12:02 | NUR ---
UPDATE ECHO COMPLETED, RESULTS RECEIVED, DR. FERNANDEZ AWARE. PREPARING FOR SBT TO ASSESS FOR EXTUBATION, WILL DECREASE SEDATION GTT'S, SEE FLOW SHEET. PT REMAINS UNCHANGED, VSS.
--- NOTE | 2020-12-05 12:04 | NUR ---
UPDATE ECHO COMPLETED, RESULTS RECEIVED, DR. FERNANDEZ AWARE. PREPARING FOR SBT TO ASSESS FOR EXTUBATION, WILL DECREASE SEDATION GTT'S, SEE FLOW SHEET. PT REMAINS UNCHANGED, VSS.
--- NOTE | 2020-12-05 12:20 | NUR ---
Echocardiogram completed.
--- NOTE | 2020-12-05 16:30 | NUR ---
EXTUBATION/ END OF SHIFT PT DID WELL WITH SBT, VT 380, RR 30, SPO2 MID-HIGH 90'S. EXTUBATED AT 1325, TO 6L NC WITH SPO2 94%. RESTRAINTS RELEASED, PROPOFOL OFF, PRECEDEX RESUMED. PT VERY CONFUSED ON EXTUBATION, WAS ATTEMPTING TO GET OOB, UNABLE TO ANSWER QUESTIONS APPROPRIATELY, DOES NOT FOLLOW DIRECTIONS. PT REPOSITIONED IN BED, COLLETTE PLACED, PT THEN BEGAN PULLING AT LINES. BILAT WRIST RESTRAINTS PLACED. HR INCREASED TO 120, PRECEDEX INCREASED WITHOUT EFFECT. DR. FERNANDEZ AT BEDSIDE, HALDOL ADMINISTERED PER DR. PT CALMED BRIEFLY, THEN BECAME AGITATED AGAIN, THOUGH VS REMAINED STABLE WITH HR 90-110 SIT. PRECEDEX AT MAX 1.4MCG, ANKLE RESTRAINTS PLACED PT IS THRASHING LEGS AND CONTINUES TO TRY TO GET OOB. PT REPOSITIONED MULTIPLE TIMES, IS BECOMING HYPOXIC WITH AGITATION AND RESTLESSNESS, SPO2 87-91% DESPITE O2 6L/NC. DR. VERGARA, RT AT BEDSIDE, BIPAP PLACED AT 1700, 16/8 FIO2 50%. RR 20'S, Vt 300-400'S, SPO2 MID 90'S, LS REMAIN CLEAR BUT DIM IN BASES. PT REMAINS RESTLESS DESPITE CONTINUED ATTEMPTS TO REPOSITION AND REORIENT, HALDOL ADMINISTERED IM PER ORDERS. PT HAS PULLED ON CATHETER AT SOME POINT, DOES NOT APPEAR TO BE DRAINING AT END OF SHIFT DESPITE BEING FLUSHED. SCANT BLEEDING FROM MEATUS, WILL REPORT TO PHP WEBSITE DEVELOPER TO CONTINUE TO MONITOR AND REPLACE CATH IF NO OUTPUT. DRESSING TO L FOOT CHANGED TODAY, PACKING TO WOUNDS X3 REMAINS IN PLACE WITH SMALL AMOUNT OF RED DRAINAGE, NO PUS OR FOUL ODOR NOTED. NON ADHERANT DRESSING, ABD, KERLIX, AND YASSINE BANDAGE TO R FOOT, ATTEMPTED TO ELEVATE RLE MUCH POSSIBLE TODAY. SWELLING TO TONGUE MILD BUT REMAINS PRESENT, HAS NOT INCREASED THIS SHIFT. NO OTHER FACIAL SWELLING NOTED.
--- NOTE | 2020-12-05 19:20 | NUR ---
Assumed care. Bedside report recieved. Pt resting in bed, 4x wrist/ankle restraints on pt. [place] vest on pt. Bipap on pt, current settings IPAP/16 EPAP/8 O2/50% BUR/16. Pt follows simple commands occasionally when asked. Able to wiggle fingers and feet. Precedex running at 1.4 mcg/kg/hr. NS running at 10 ml/hr. Bagley cather in place but not draining, report from daysmeft rn was that the pt pulled on the catheter prior to shift change. Replaced bagley, light bleeding noted upon removal and maroon colored urine draining after replacement. Bagley secured, sample sent to lab. Vital signs stable, no other acute needs noted at this time.
[2020-12-05 20:55] LABS: Source, Urine Catheter
[2020-12-05 20:57] LABS: Bilirubin, Urine Neg (Neg); Blood, Urine 5+ (Neg); Glucose Qualitative, Urine 1+ (Neg); Ketones, Urine 1+ (Neg); Leukocyte Esterase, Urine 2+ (Neg); Nitrite, Urine Neg (Neg); Protein, Urine 3+ (Neg); Urobilinogen, Urine NORM (Normal)
[2020-12-05 21:04] LABS: Appearance, Urine Cloudy (Clear); Color, Urine Brown (P-Yellow)
[2020-12-05 21:08] LABS: Red Blood Cells, Urine TNTC /hpf (0-2); Squamous Epithelial Cells Not Seen /hpf (Few)
[2020-12-05 21:09] LABS: Amorphous Light (0-Heavy); Bacteria Mod /hpf
[2020-12-06 04:22] LABS: BASOPHILS ABSOLUTE AUTO 0.09 K/mm3 (0.00-0.23); BASOPHILS PERCENT AUTO 1 % (0-2); EOSINOPHILS PERCENT AUTO 1 % (0-6); Hematocrit 30.9 % (37.0-53.0); Hemoglobin 10.4 g/dL (13.5-17.5); IMMATURE GRAN ABSOLUTE AUTO 0.93 K/mm3 (0.00-0.10); IMMATURE GRAN PERCENT AUTO 7 % (0-1); LYMPHOCYTES ABSOLUTE AUTO 1.78 K/mm3 (0.84-5.20); LYMPHOCYTES PERCENT AUTO 14 % (21-46); MONOCYTES ABSOLUTE AUTO 0.51 K/mm3 (0.16-1.47); MONOCYTES PERCENT AUTO 4 % (4-13); Mean Corpuscular HGB Conc 33.7 g/dL (31.5-36.5); Mean Corpuscular Volume 86 fL (80-100); Mean Platelet Volume 9.9 fL (9.1-12.4); NEUTROPHILS ABSOLUTE AUTO 9.49 K/mm3 (1.96-9.15); NEUTROPHILS PERCENT AUTO 74 % (41-73); NRBC ABSOLUTE 0.03 K/mm3 (0.00-0.02); NRBC Auto 0.2 /100 WBC (0.0-0.2); Platelet Count 390 K/mm3 (150-400); RDW Standard Deviation 40.9 fL (35.1-46.3); Red Blood Cell Count 3.59 M/mm3 (4.30-5.90)
[2020-12-06 04:36] LABS: Anion Gap 7 mmol/L (6-16); Blood Urea Nitrogen 20 mg/dL (8-24); Bun/Creatinine Ratio 20.3 (12.0-20.0); CO2, Blood 25 mmol/L (21-32); Calcium, Blood 8.4 mg/dL (8.5-10.1); Chloride, Blood 110 mmol/L (98-108); Creatinine, Blood 0.98 mg/dL (0.60-1.20); Glomerular Filtration Rate >60 (60-); Glucose, Blood 195 mg/dL (70-99); Potassium, Blood 4.1 mmol/L (3.5-5.5); Sodium, Blood 142 mmol/L (136-145)
[2020-12-06 04:40] LABS: BAND PERCENT MAN 3 % (0-8); BASOPHILS PERCENT MAN 0 % (0-2); EOSINOPHILS PERCENT MAN 0 % (0-6); LYMPHOCYTES ABSOLUTE MAN 1.16 K/mm3 (0.84-5.20); LYMPHOCYTES PERCENT MAN 9 % (21-46); METAMYELOCYTE ABSOLUTE MAN 0.25 K/mm3 (0.00-0.00); METAMYELOCYTE PERCENT MAN 2 % (0-0); MONOCYTES ABSOLUTE MAN 0.77 K/mm3 (0.16-1.47); MONOCYTES PERCENT MAN 6 % (4-13); MYELOCYTE ABSOLUTE MAN 0.12 K/mm3 (0.00-0.00); MYELOCYTE PERCENT MAN 1 % (0-0); NEUTROPHILS ABSOLUTE MAN 10.57 K/mm3 (1.96-9.15); SEG NEUTROPHILS PERCENT MAN 79 % (41-73); TOTAL CELLS COUNTED 100
--- NOTE | 2020-12-06 06:54 | NUR ---
SHIFT SUMMARY. PT MAINTAINED STABLE VITAL SIGNS THROUGHOUT SHIFT. PRECEDEX INFUSED AT 1.4 MCG/KG/HR FOR DURATION OF SHIFT. MAGUIRE CATHETER REPLACED, DRAINED CRANBERRY COLORED URINE WITH SOME LIGHT BLEEDING FROM URETHRA DURING SHIFT. PT WAS ON BIPAP INITIALLY, 20/03/50 BUT DID NOT TOLERATE MASK WELL AND WAS TAKEN OFF BIPAP FOR 6 HOURS, MAINTAINED SPO2 IN LOW 90s WITH NASAL CANNULA AT 6 L/MIN. PT PUT BACK ON BIPAP FOR INCREASED WORK OF BREATHING AND RESPIRATORY RATE IN LOW 40s, AFTERWARDS HIS RR DECREASED INTO MID 20s AND WORK OF BREATHING LESSENED. PT CONTINUES TO BE CONFUSED, ABLE TO FOLLOW SIMPLE COMMANDS AND ANSWER YES OR NO QUESTIONS. PT IS STILL TRYING TO GET OOB, REMAINS IN RESTRAINTS. DAYSHIFT NURSE FOUND FOR REPORT.
--- NOTE | 2020-12-06 07:30 | NUR ---
ASSUMED CARE PT RESTING COMFORTABLY IN BED. SEDATED WITH PRECEDEX 1.4MCG/KG. SOFT RESTRAINTS X4 EXTREMITIES. 6L VIA NC, SAT 90-94%. TONGUE SLIGHTLY SWOLLEN. PT ABLE TO ANSWER YES/NO, SLOW TO RESPOND AT TIMES, OTHERWISE INCOMPREHENSIBLE SPEECH. ABDOMEN SLIGHTLY DISTENDED THOUGH PAINLESS UPON PALPATION. MAGUIRE CATH PATENT AND DRAINING DARK FRANCISCA URINE. S/P R FOOT I/D, DRESSING C/D/I. PT MOVING SELF INDEPENDENTLY IN BED. VS STABLE AT THIS TIME. WILL CONTINUE TO MONITOR.
--- NOTE | 2020-12-06 18:04 | NUR ---
SHIFT SUMMARY PT RESTING IN BED AT THIS TIME. PICC TO JOHNNA INFUSING PRECEDEX 1.4MCG/KG. SOFT RESTRAINTS X4 EXTREMITIES. BIPAP 12/ AT THIS TIME. ALTERNATED BETWEEN NC 6L AND BIPAP TODAY TOLERATED. PT RESTLESS TODAY, NEEDED FREQUENT BOOSTING IN BED AND MOVING. PT ABLE TO ANSWER YES/NO TO SIMPLE QUESTIONS, SOMETIMES SLOW TO RESPOND, FORGETFUL AT TIMES THOUGH REDIRECTABLE. NPO AT THIS TIME. SWELLING TO TONGUE REMAINS AT THIS TIME. S/P AMPUTATION TO R TOES X5, DRESSING CHANGED AND C/D/I. MAGUIRE CATH REMAINS IN PLACE, DRAINING DARK FRANCISCA URINE WITH SEDIMENT. VS STABLE. WILL CONTINUE TO MONITOR.
--- NOTE | 2020-12-06 19:00 | NUR ---
Spiritual care note: Pt opens eyes briefly to touch, but is otherwise not responsive.
--- NOTE | 2020-12-06 19:55 | NUR ---
ASSUMED CARE. BEDSIDE REPORT RECIEVED. PT RESTING QUIETLY IN BED AT THIS TIME. REPOSITIONED PT FOR COMFORT, REPLACED PILLOWCASE DUE TO MARKED DIAPHORESIS OF HEAD/NECK. PT CURRENTLY ON BIPAP 07/09/30%, BUR 12. MAGUIRE IN PLACE, DRAINING DARK FRANCISCA LIQUID. PRECEDEX RUNNING AT 1.4 MCG/KG/HR, NS AT 10 ML/HR. SWB RESTRAINTS IN PLACE. PT AROUSES EASILY, ABLE TO ANSWER YES/NO QUESTIONS. VITAL SIGNS STABLE, NO OTHER ACUTE NEEDS NOTED AT THIS TIME.
--- NOTE | 2020-12-06 22:26 | NUR ---
PRECEDEX TITRATED DOWN TO 1.0 FROM 1.4. PT NOW ORIENTED TO SELF AND SURROUNDINGS. NURSING LEAD SPRINKLER CALLED FOR REMOTE MONITORING.
--- NOTE | 2020-12-07 06:14 | NUR ---
SHIFT ASSESSMENT. PT RESTED DURING NIGHTSHIFT. PT WAS MORE ALERT AND ORIENTED TO SELF AND SURROUNDINGS AT BEGINNING OF SHIFT. PRECEDEX TITRATED DOWN TO 1.0 AT 2230 AND 0.7 AT 0000, SWB RESTRAINTS REMOVED AT 2230. PT WAS ABLE TO TOLERATE WELL UNTIL APPROX 0400 WHEN HE BECAME ANXIOUS, TACHYPNIC AND TACHYCARDIC. PRECEDEX TITRATED BACK UP TO 1.0 AT 0400, TITRATED UP TO 1.4 AT 0500 AND 1MG ATIVAN GIVEN FOR CONTINUED ANXIETY AND INCREASED RR. PT NOW RESTING QUIETLY. PT ON O2/NC/5 L/MIN, MAGUIRE IN PLACE DRAINING DARK FRANCISCA LIQUID, PRECEDEX 1.4 MCG/KG/HR, NS 10 ML/HR. HR AVERAGING LOW 100s, BP 150s. PT REPOSITIONS SELF FREQUENTLY, C/O BACK PAIN FROM BED. REMOTE MONITORING IN PLACE, BED ALARM SET. DRESSING ON R/FOOT C/D/I.
--- NOTE | 2020-12-07 18:43 | NUR ---
SHIFT SUMMARY PT ALERT, ORIENTED TO PERSON, FOLLOWS COMMANDS. PT VERY RESTLESS THROUGHOUT THE DAY AND WOULD REQUIRING FREQUENT BOOSTING AND REPOSITIONING IN CHAIR/BED. PT TOLERATED SITTING UP IN CHAIR APPROX 4 HOURS TODAY. CEILING LIFT UTILIZED TO TRANSFER PT. PRECEDEX REMAINS ON, TITRATED DOWN TO 1MCG/KG/HR. SPEECH THEARPY EVALED PT AND ADVANCED DIET TO PUREED WITH NECTAR LIQUIDS. PT A FEEDER HE HAS DIFFICULTY GRIPPING UTENSILS AND WEAKNESS IN HIS ARMS. BP ELEVATED 150'S-160'S, ORAL BP MEDS STARTED AGAIN TODAY. RIGHT FOOT DRESSING C/D/I. TITRATED PT DOWN FROM INITIALLY 5L OF O2 TO 2L O2 AND PT HAS MAINTAINED SPO2 >92%. MONITOR SHOWS PT TO BE SINUS RHYTHM-SINUS TACH WITH RATES 90'S-100'S.
[2020-12-08 04:36] LABS: Anion Gap 5 mmol/L (6-16); Blood Urea Nitrogen 29 mg/dL (8-24); Bun/Creatinine Ratio 33.7 (12.0-20.0); CO2, Blood 26 mmol/L (21-32); Calcium, Blood 8.5 mg/dL (8.5-10.1); Chloride, Blood 112 mmol/L (98-108); Creatinine, Blood 0.86 mg/dL (0.60-1.20); Glomerular Filtration Rate >60 (60-); Glucose, Blood 234 mg/dL (70-99); Sodium, Blood 143 mmol/L (136-145)
[2020-12-08 04:54] LABS: Hemoglobin 10.1 g/dL (13.5-17.5); Mean Corpuscular HGB 28.4 pg (26.0-34.0); Mean Corpuscular HGB Conc 32.6 g/dL (31.5-36.5); Mean Corpuscular Volume 87 fL (80-100); NRBC ABSOLUTE 0.02 K/mm3 (0.00-0.02); NRBC Auto 0.2 /100 WBC (0.0-0.2); RDW Coefficient Variation 13.2 % (11.7-14.2); RDW Standard Deviation 42.2 fL (35.1-46.3); Red Blood Cell Count 3.56 M/mm3 (4.30-5.90); White Blood Cell Count 8.51 K/mm3 (4.00-11.30)
[2020-12-08 05:03] LABS: Mean Platelet Volume 10.1 fL (9.1-12.4); Platelet Count 313 K/mm3 (150-400)
[2020-12-08 05:26] LABS: BAND PERCENT MAN 1 % (0-8); BASOPHILS PERCENT MAN 0 % (0-2); EOSINOPHILS PERCENT MAN 0 % (0-6); LYMPHOCYTES PERCENT MAN 20 % (21-46); MONOCYTES ABSOLUTE MAN 0.34 K/mm3 (0.16-1.47); MONOCYTES PERCENT MAN 4 % (4-13); MYELOCYTE ABSOLUTE MAN 0.08 K/mm3 (0.00-0.00); MYELOCYTE PERCENT MAN 1 % (0-0); NEUTROPHILS ABSOLUTE MAN 6.38 K/mm3 (1.96-9.15); SEG NEUTROPHILS PERCENT MAN 74 % (41-73); TOTAL CELLS COUNTED 100
--- NOTE | 2020-12-08 05:57 | NUR ---
END OF SHIFT SUMMARY: PATIENT A/O X1 ON INITIAL ASSESSMENT BUT IS NOW A/O X3-4. PATIENT FOLLOWS DIRECTIONS AND IS VERY PLEASANT. PATIENT DOES NOT REMEMMBER EVENTS LEADING UP TO HIS ADMISSION BUT WE TALKED A LOT ABOUT HIS HOSPITALIZATION OVERNIGHT. PRECEDEX HAS BEEN WEANED DOWN AND HAS BEEN OFF SINCE 429. PATIENT REPORTS SLEPT BUT HAVING WEIRD DREAMS. HE EXPRESSES WANTING TO GET TO CHAIR TODAY AND I TOLD HIM THAT WOULD BE THE PLAN THIS MORNING FOR BREAKFAST. PATIENT HAS REMAINED IN NSR, ON 2L O2 AND HYPERTENSIVE. SURGERY WAS CALLED OVERNIGHT REGARDING APPLICATION OF WOUND VAC AND NOBODY HAS YET SHOWED UP SO IT MUST BE APPLIED TODAY
--- NOTE | 2020-12-08 08:30 | NUR ---
ASSUMED CARE OF PT THIS MORNING PT IS MORE ALERT AND ORIENTEDx3, APPEARS LESS RESTLESS THEN YESTERDAY. BED BATH PERFORMED AND TWO PERSON MAX ASSIST TO CHAIR. PT'S LEGS BECAME WEAK ON PIVOT TRANSFER AND COLAPSED INTO CHAIR. INITIAL ASSESSMENT PT'S HEART RATE WAS SINUS TACH RATES LOW 100'S, AFTER TRANSFER AND DURING BREAKFAST PT'S HR WAS MID 120'S. THIS MORNING PT WAS ABLE TO FEED SELF WITH SUPERVISION, WOULD REQUIRE QUES TO SLOW DOWN AND TO USE SPOON FOR NECTAR LIQUIDS. O2 WAS AT 2L NC, SPO2 97%. PLACED PT ON ROOM AIR AND SPO2 HAS CURRENTLY MAINTAINED >92%. RIGHT FOOT DRESSING C/D/I, WOUND VAC UNABLE TO BE PLACED ON NOC SHIFT. WILL PLACE WOUND VAC PER ORDERS.
--- NOTE | 2020-12-08 12:30 | NUR ---
REASSESSMENT PT REMAINS ALERT AND ORIENTEDx3, UP IN CHAIR FOR LUNCH. SPEECH THERAPY ADVANCED DIET AND PT APPEARS TO BE TOLERATING. BP REMAINS ELEVATED, LISINOPRIL ADDED BY DR LOERA. PT REMAINS ON ROOM AIR WITH SPO2 >92%. WOUND VAC APPLIED TO RIGHT FOOT BY WOUND CLINIC RN. NEXT DRESSING CHANGE DUE SATURDAY, CALL WOUND CLINIC IF ASSISTANCE IS NEEDED. VITALS REMAINS STABLE. SINUS TACH ON THE MONITOR.
--- NOTE | 2020-12-08 18:21 | NUR ---
Pt arrived from ICU. He is a/o x 4 and very pleasant. He is currently on RA with no s/s of resp distress. wound vac is patent to right foot. Pt is sitting up in the recliner watching TV and has his call light in reach. Will give repor tto oncoming nurse.
--- NOTE | 2020-12-08 18:28 | NUR ---
SHIFT SUMMARY PT REMAINED ALERT AND ORIENTED 3-4 DURING THE DAY, VERY PLEASANT. BP IMPROVED FOR A SHORT PERIOD OF TIME THIS AFTERNOON, THEN INCREASED BACK TO 160'S-170'S SYSTOLIC. WOUND VAC APPLIED TODAY TO RIGHT FOOT, MAINTAINED SUCTION GOAL OF 120mmHg, NO LEAK NOTED. PT TOLERATE SITTING UP IN CHAIR MOST OF THE DAY, AND WOULD BE TWO PERSON ASSIST TRANSFERS. SPEECH THERAPY ADVANCED PT'S DIET AND PT HAS TOLERATED WELL. MONITOR HAS SHOWN PT TO BE SINUS TACH. OTHER VITALS HAVE REMAINED STABLE.
--- NOTE | 2020-12-08 18:39 | NUR ---
TRANSFER OF CARE REPORT GIVEN TO LIMA POPE ON PCU. BELONGINGS GATHERED AND TRANSFERED WITH PT. PT TRANSFERRED TO PCU 1 AT 1800.
--- NOTE | 2020-12-09 06:22 | NUR ---
SHIFT SUMMARY NO ACUTE CHANGES THIS SHIFT. PT A&OX3, OCCASIONALLY FORGETFUL, EASILY REDIRECTABLE. SP02>92% ON RA. TELEMETRY READS ST W/ PACS, HR 100'S, BP ELEVATED. PT AMBULATED W/ 2 PERSON ASSIST/FWW/GB TO BSC TO HAVE BM X2. PT INCONTINENT OF BM X1 THIS SHIFT. PT INCONTINENT OF URINE, C/D ATTENDS IN PLACE. PT HAS WOUND VAC SUCTIONING R FOOT/TOE WOUNDS. WOUNDS SEALED W/ GAUZE, C/D/I. PT SLEPT OFF AND ON T/O NIGHT. CALL LIGHT IN REACH. WILL GIVE REPORT TO ONCOMING NURSE.
--- NOTE | 2020-12-09 08:00 | NUR ---
SHIFT INITIAL ASSESSMENT PT AWAKE IN BED, A&0 X4, 2 PERSON ASSIST TO BSC. PT HAS WEAKNESS IN ALL EXTREMITIES, ABLE TO FOLLOW COMMANDS FOR SAFETY DURING TRANSFERS. WOUND VAC IS IN PLACE ON RIGHT FOOT, S/P RIGHT TOE AMPUTATIONS, DRESSING IS C/D/I. NO COMPLAINTS OF PAIN OR DISCOMFORT PT DENIES CP OR SOB. LUNG SOUNDS ARE CTA, DIMINISHED IN BILAT LOWER LOBES. DISTAL PULSE PALPABLE, WEAK, IN LEFT PEDAL PULSE. BOWEL SOUNDS PRESENT IN ALL QUADRANTS, 2 LOOSE BM'S DURING MORNING PERSONAL CARE. PT ON MECHANICAL SOFT DIET, ABLE TO SWALLOW PILLS WHOLE IN APPLESAUCE. CALL LIGHT WITHIN REACH.
--- NOTE | 2020-12-09 13:30 | NUR ---
TRANSFER NOTE 77 YO M TRANSFERRED TO SURGICAL FLOOR VIA [facility], WITH ALL BELONGINGS. REPORT GIVEN TO LIMA SCHROEDER. VITAL SIGNS STABLE.
--- NOTE | 2020-12-09 13:45 | NUR ---
PT ARRIVED TO THE ROOM FROM PCU AT 1340. PT IS ALERT AND ORIENTED. HE DENIES PAIN. PT ASSISTED INTO THE RECLINER CHAIR AND EDUCATED TO ELEVATE LLE. VSS. WILL CONTINUE TO MONITOR.
--- NOTE | 2020-12-09 13:58 | NUR ---
TRANSFER FROM [facility] PT WAS TRANSFERED FROM [facility] AT APPROX 1335. PT IS A&O X4. PT IS IN PLEASENT MOOD. PT IS EXCITED TO HAVE WINDOW IN ROOM. PT HAS BEEN ORIENTATED TO ROOM, CALL LIGHT IS WITHIN REACH, AND WATER WITH NO STRAW HAS BEEN GIVEN. PTS LILO IS CURRENTLY VISITING IN ROOM.
--- NOTE | 2020-12-09 19:07 | NUR ---
SHIFT SUMMARY PT HAS BEEN IN A PLEASENT MOOD. PT IS A&O X4. PT IS TOLLERATING [facility] SOFT DIET AND THIN LIQUIDS IN SIPS. PT HAS BEEN SITTING IN RECLINER WITH RIGHT FOOT ELEVATED ON PILLOWS WATCHING T.V. PT WAS JUST TRANSFERED FROM CHAIR TO BED USING GAIT BELT AND FWW. 1 PERSON STANDBY ASSIST. PTS NEPHEW WAS AT BEDSIDE DURING VISITING HOURS. PT CALL LIGHT IS WITHIN REACH. PT VSS.
--- NOTE | 2020-12-10 04:53 | NUR ---
SHIFT SUMMARY: SEPSIS RESOLVED,RIGHT PEDAL STUMP ABSCESS I&D W/WOUND VAC ANAPHYLACTIC REACTION RESOLVED PT IS A&OX4 BRIGHT AFFECT WITH FREQUENT SMILES, SPEECH IS CLEAR LOGICAL. HX SM,SKI,PVD,HTN. PT WAS TRANDFERRED YESTERDAY FROM PCU C/O SORE IRRITATED THROAT FROM INTUBUTATION /EXTUB 12/05 AFTER SEVERE ANAPHYLACTIC RX POPSICLES GIVEN LOZANGES ORDERED REPORTS RELIEF. REPORTS PAIN TOLERABLE DENIES SENSATION CHANGES PERIPHERAL PULSES PRESENT WEAK, REPORTED MECH DIET AND THIN LIQUID PT DENIES SWALLOW ISSUES STATES EATS REGULAR FOODS AT HOME. PT APPEARED TO SLEEP WELL T/O THE NIGHT, INCONT W. DRIBBLE W/ATTENDS PT REPORTS URGENCY. CALL LIGHT WITHIN REACH.
[2020-12-10 05:54] LABS: Hematocrit 33.7 % (37.0-53.0); Hemoglobin 11.1 g/dL (13.5-17.5); Mean Corpuscular HGB 28.5 pg (26.0-34.0); Mean Corpuscular HGB Conc 32.9 g/dL (31.5-36.5); Mean Corpuscular Volume 86 fL (80-100); Mean Platelet Volume 9.8 fL (9.1-12.4); Platelet Count 374 K/mm3 (150-400); RDW Coefficient Variation 13.3 % (11.7-14.2); RDW Standard Deviation 41.7 fL (35.1-46.3); White Blood Cell Count 9.01 K/mm3 (4.00-11.30)
--- NOTE | 2020-12-10 06:10 | NUR ---
PT GIVES PERMISSION FOR STUDENT TO PARTICPATE IN CARE
[2020-12-10 06:19] LABS: Bun/Creatinine Ratio 34.4 (12.0-20.0); Calcium, Blood 8.9 mg/dL (8.5-10.1); Creatinine, Blood 1.28 mg/dL (0.60-1.20); Potassium, Blood 3.4 mmol/L (3.5-5.5)
--- NOTE | 2020-12-10 17:49 | NUR ---
SHIFT SUMMARY PT ALERT AND ORIENTED THROUGHOUT SHIFT. POD #8 R METATARSAL STUMP ABCESS. SBA WITH WALKER AND GAIT BELT TO COMMODE AND TO AMBULATE IN HALLS. TOLERATING [facility] SOFT DIET AND ORAL FLUIDS. VOIDING WELL. WOUND VAC AND YASSINE WRAP TO RIGHT LOWER EXTREMEMITY. WOUND PATENT AND SUCTIONING. SCANT SS DRAINAGE. PATIENT DENIES PAIN. PLAN TO DISCHARGE TO SNF.
--- NOTE | 2020-12-11 04:31 | NUR ---
SHIFT SUMMARY: POD9 RIGHT PEDAL STUMP ABSCESS I&D, POST SEVERE ANAPHYLACTIC RX, WOUND VAC PT IS A&OX4, BRIGHT AFFECT, WOUND VAC W/ YASSINE WRAP BANDAGE TOLERATE WELL DENIES PAIN AT THIS TIME. AMBULATES W/1P ASSIST OOB BRP INCONT. W/ DRIBBLE AND URGENCY WEARING ATTEND, PT REPORTS SORE THROAT HAS LOZENGES AND POPSICLES AVAILABLE UPON REQUEST. PT RESTED WELL T/O THE SHIFT CALL LIGHT WITH REACH.
[2020-12-11 07:00] LABS: Bun/Creatinine Ratio 32.1 (12.0-20.0); Calcium, Blood 8.6 mg/dL (8.5-10.1); Creatinine, Blood 1.34 mg/dL (0.60-1.20); Potassium, Blood 3.5 mmol/L (3.5-5.5)
--- NOTE | 2020-12-11 16:25 | NUR ---
SHIFT SUMMARY PT A&OX4, VSS, POD8 I&D R FOOT, WOUND VAC ON WNL. DENIES PAIN. DENIES N&V, BELKIS PO. AMB SBA W/FWW & GB TO BSC/UP IN ROOM, UP TO CHAIR T/O SHIFT. VOIDING WELL. WILL REPORT TO ONCOMING NOC LIMA.
--- NOTE | 2020-12-12 05:56 | NUR ---
PT IS A/O, PHILIPP, KENNEY AC/HS. WOUNDVAC TO R STUMP, UP TO BEDSIDE THIS SHIFT. POSSIBLE D/C TO SNF TODAY. DYSPHAGIA PRECAUTIONS, NO STRAW.
[2020-12-12 06:10] LABS: Glucose (ISTAT POC) 541 mg/dL (70-99)
[2020-12-12 06:10] LABS: Glucose (ISTAT POC) 601 mg/dL (70-99)
[2020-12-12 06:10] LABS: Glucose (ISTAT POC) 582 mg/dL (70-99)
[2020-12-12 10:34] LABS: Albumin, Blood 2.4 g/dL (3.4-5.0); Anion Gap 8 mmol/L (6-16); Blood Urea Nitrogen 43 mg/dL (8-24); Bun/Creatinine Ratio 29.9 (12.0-20.0); CO2, Blood 27 mmol/L (21-32); Calcium, Blood 8.6 mg/dL (8.5-10.1); Chloride, Blood 101 mmol/L (98-108); Creatinine, Blood 1.44 mg/dL (0.60-1.20); Glomerular Filtration Rate 52 (60-); Glucose, Blood 206 mg/dL (70-99); Phosphorus, Blood 3.4 mg/dL (2.5-4.9); Potassium, Blood 3.9 mmol/L (3.5-5.5); Sodium, Blood 136 mmol/L (136-145)
[2020-12-12 14:48] LABS: SARS-Cov-2 (COVID-19) PCR, MMC NEGATIVE (NEGATIVE)
--- NOTE | 2020-12-12 17:29 | NUR ---
[facility].
== END 2020-12-12 17:31 | DRG 856 ==
LOC: ER 09:35 → ICUW 13:51 → PCU 13:51 → ERHOLD 13:51 → PCU 15:33 → ICUW 12-02 13:29 → PCU 12-08 18:20 → SURS 12-09 13:54
PROVIDERS: Anesthesiology; Emergency Medicine; Internal Medicine; Internal Medicine Critical Care Medicine; Internal Medicine Pulmonary Disease; Nurse Practitioner Acute Care; Pharmacist; Podiatrist; ADMIT Family Medicine
PROC: 0J9Q0ZZ Drainage of Right Foot Subcutaneous Tissue and Fascia, Open Approach (ICD-10-PCS; 2020-12-02)
PROC: 5A1945Z Respiratory Ventilation, 24-96 Consecutive Hours (ICD-10-PCS; 2020-12-02)
PROC: 0BH18EZ Insertion of Endotracheal Airway into Trachea, Via Natural or Artificial Opening Endoscopic (ICD-10-PCS; 2020-12-02)
PROC: 0LBV0ZZ Excision of Right Foot Tendon, Open Approach (ICD-10-PCS; principal; 2020-12-02 11:15)
DX: T81.49XA Infection following a procedure, other surgical site, initial encounter (principal); J96.01 Acute respiratory failure with hypoxia; A41.01 Sepsis due to Methicillin susceptible Staphylococcus aureus; R65.20 Severe sepsis without septic shock; J18.9 Pneumonia, unspecified organism; T87.43 Infection of amputation stump, right lower extremity; T88.6XXA Anaphylactic reaction due to adverse effect of correct drug or medicament properly administered, initial encounter; N17.9 Acute kidney failure, unspecified; L03.115 Cellulitis of right lower limb; Z20.822 Contact with and (suspected) exposure to COVID-19; T81.44XA Sepsis following a procedure, initial encounter; T36.1X5A Adverse effect of cephalosporins and other beta-lactam antibiotics, initial encounter; E11.42 Type 2 diabetes mellitus with diabetic polyneuropathy; N18.30 Chronic kidney disease, stage 3 unspecified; E11.22 Type 2 diabetes mellitus with diabetic chronic kidney disease; I25.10 Atherosclerotic heart disease of native coronary artery without angina pectoris; Z79.899 Other long term (current) drug therapy; Z79.4 Long term (current) use of insulin; Z79.02 Long term (current) use of antithrombotics/antiplatelets; I12.9 Hypertensive chronic kidney disease with stage 1 through stage 4 chronic kidney disease, or unspecified chronic kidney disease; Z95.5 Presence of coronary angioplasty implant and graft; E78.5 Hyperlipidemia, unspecified; F32.9 Major depressive disorder, single episode, unspecified; Z79.82 Long term (current) use of aspirin; E86.0 Dehydration; T78.3XXA Angioneurotic edema, initial encounter; E11.65 Type 2 diabetes mellitus with hyperglycemia; E11.621 Type 2 diabetes mellitus with foot ulcer; L97.513 Non-pressure chronic ulcer of other part of right foot with necrosis of muscle
CPT/HCPCS: 0241U; 31500; 36415; 36569; 51702; 51703; 71045; 73620; 73630; 80048; 80053; 80069; 80202; 81001; 82803; 82947; 83605; 83735; 84100; 84484; 85025; 85027; 85610; 85651; 85730; 86140; 87040; 87070; 87071; 87075; 87077; 87086; 87147; 87186; 87205; 92526; 92610; 93005; 93010; 93306; 93926; 94002; 94003; 94660; 94762; 96372-59; 96374; 96375; 97110; 97116; 97116-CQ; 97162; 97164; 97167; 97530; 97530-CQ; 97535; 99285-25; A9270; C1751; J0171; J0692; J1200; J1630; J1644; J1650; J1815; J1956; J2020; J2060; J2250; J2405; J2704; J2765; J2930; J3010; J3370; J3475; J3480; J7030; J7050; J7060; J7070; J7120; U0004

== ENCOUNTER 2021-06-11 09:49 | Inpatient (IN) | payer OTHER ==
[~2021-06-11] VITALS: Ht 172.7 cm; Wt 92.0 kg
[~2021-06-11 09:49] MED LIST changes: +AMOCLA875 PO; +NOVOLIN 70100 UNIT/4 SC; +Zofran4 MG PO
[2021-06-11 13:58] LABS: BASOPHILS ABSOLUTE AUTO 0.04 K/mm3 (0.00-0.23); BASOPHILS PERCENT AUTO 0 % (0-2); EOSINOPHILS ABSOLUTE AUTO 0.01 K/mm3 (0.00-0.68); EOSINOPHILS PERCENT AUTO 0 % (0-6); Hematocrit 36.5 % (37.0-53.0); Hemoglobin 12.4 g/dL (13.5-17.5); IMMATURE GRAN ABSOLUTE AUTO 0.25 K/mm3 (0.00-0.10); IMMATURE GRAN PERCENT AUTO 1 % (0-1); LYMPHOCYTES ABSOLUTE AUTO 2.47 K/mm3 (0.84-5.20); LYMPHOCYTES PERCENT AUTO 11 % (21-46); MONOCYTES ABSOLUTE AUTO 1.66 K/mm3 (0.16-1.47); MONOCYTES PERCENT AUTO 8 % (4-13); Mean Corpuscular HGB 28.9 pg (26.0-34.0); Mean Corpuscular Volume 85 fL (80-100); Mean Platelet Volume 9.5 fL (9.1-12.4); NEUTROPHILS ABSOLUTE AUTO 17.37 K/mm3 (1.96-9.15); NEUTROPHILS PERCENT AUTO 80 % (41-73); Platelet Count 460 K/mm3 (150-400); RDW Coefficient Variation 13.6 % (11.7-14.2); RDW Standard Deviation 42.5 fL (35.1-46.3); Red Blood Cell Count 4.29 M/mm3 (4.30-5.90)
[2021-06-11 14:19] LABS: Albumin, Blood 2.7 g/dL (3.4-5.0); Albumin/Globulin Ratio 0.5 (0.8-1.8); Bilirubin, Total 0.5 mg/dL (0.1-1.0); Bun/Creatinine Ratio 20.6 (12.0-20.0); Calcium, Blood 9.8 mg/dL (8.5-10.1); Creatinine, Blood 1.75 mg/dL (0.60-1.20); Globulin, Blood 5.9 g/dL (2.2-4.0); Potassium, Blood 3.2 mmol/L (3.5-5.5); Total Protein, Blood 8.6 g/dL (6.4-8.2)
[2021-06-11] MEDS ORDERED: LISI20 PO (15:17)
[2021-06-11] MEDS ORDERED: TAMS.4ER PO (15:17)
[2021-06-11] MEDS ORDERED: CLOP75 PO (15:18)
[2021-06-11] MEDS ORDERED: FENO145 PO (15:18)
[2021-06-12 01:24] LABS: SARS-Cov-2 (COVID-19) PCR, MMC NEGATIVE (NEGATIVE)
[2021-06-12 05:27] LABS: BASOPHILS ABSOLUTE AUTO 0.05 K/mm3 (0.00-0.23); BASOPHILS PERCENT AUTO 0 % (0-2); EOSINOPHILS ABSOLUTE AUTO 0.01 K/mm3 (0.00-0.68); EOSINOPHILS PERCENT AUTO 0 % (0-6); Hematocrit 33.8 % (37.0-53.0); Hemoglobin 11.4 g/dL (13.5-17.5); IMMATURE GRAN PERCENT AUTO 1 % (0-1); LYMPHOCYTES ABSOLUTE AUTO 3.18 K/mm3 (0.84-5.20); LYMPHOCYTES PERCENT AUTO 16 % (21-46); MONOCYTES ABSOLUTE AUTO 1.25 K/mm3 (0.16-1.47); MONOCYTES PERCENT AUTO 6 % (4-13); Mean Corpuscular HGB 28.2 pg (26.0-34.0); Mean Corpuscular HGB Conc 33.7 g/dL (31.5-36.5); Mean Corpuscular Volume 84 fL (80-100); Mean Platelet Volume 9.6 fL (9.1-12.4); NEUTROPHILS ABSOLUTE AUTO 14.84 K/mm3 (1.96-9.15); NEUTROPHILS PERCENT AUTO 76 % (41-73); Platelet Count 416 K/mm3 (150-400); RDW Coefficient Variation 13.6 % (11.7-14.2); RDW Standard Deviation 41.7 fL (35.1-46.3); Red Blood Cell Count 4.04 M/mm3 (4.30-5.90); White Blood Cell Count 19.53 K/mm3 (4.00-11.30)
[2021-06-12 06:06] LABS: Albumin, Blood 2.2 g/dL (3.4-5.0); Albumin/Globulin Ratio 0.4 (0.8-1.8); Bilirubin, Total 0.6 mg/dL (0.1-1.0); Bun/Creatinine Ratio 18.9 (12.0-20.0); Calcium, Blood 9.3 mg/dL (8.5-10.1); Creatinine, Blood 1.43 mg/dL (0.60-1.20); Globulin, Blood 5.4 g/dL (2.2-4.0); Potassium, Blood 3.2 mmol/L (3.5-5.5); Total Protein, Blood 7.6 g/dL (6.4-8.2)
--- NOTE | 2021-06-12 18:55 | NUR ---
SHIFT SUMMARY: PT A/O STANDBY ASSIST TO BSC. PT HAS BEEN PLEASANT AND COOPERATIVE. PT TOLERATED IV ANTIBIOTIC OXACILLIN WITH NO S/S OF ALLERGIC REACTION. PT DENIES PAIN AT THIS TIME.
[2021-06-13 04:50] LABS: BASOPHILS ABSOLUTE AUTO 0.04 K/mm3 (0.00-0.23); BASOPHILS PERCENT AUTO 0 % (0-2); EOSINOPHILS ABSOLUTE AUTO 0.03 K/mm3 (0.00-0.68); EOSINOPHILS PERCENT AUTO 0 % (0-6); Hematocrit 29.8 % (37.0-53.0); IMMATURE GRAN ABSOLUTE AUTO 0.24 K/mm3 (0.00-0.10); IMMATURE GRAN PERCENT AUTO 2 % (0-1); LYMPHOCYTES ABSOLUTE AUTO 2.23 K/mm3 (0.84-5.20); LYMPHOCYTES PERCENT AUTO 15 % (21-46); MONOCYTES PERCENT AUTO 7 % (4-13); Mean Corpuscular HGB 28.3 pg (26.0-34.0); Mean Corpuscular HGB Conc 33.6 g/dL (31.5-36.5); Mean Corpuscular Volume 84 fL (80-100); Mean Platelet Volume 9.7 fL (9.1-12.4); NEUTROPHILS ABSOLUTE AUTO 11.89 K/mm3 (1.96-9.15); NEUTROPHILS PERCENT AUTO 77 % (41-73); Platelet Count 402 K/mm3 (150-400); RDW Coefficient Variation 13.8 % (11.7-14.2); RDW Standard Deviation 42.5 fL (35.1-46.3); Red Blood Cell Count 3.53 M/mm3 (4.30-5.90); White Blood Cell Count 15.43 K/mm3 (4.00-11.30)
[2021-06-13 05:16] LABS: Albumin, Blood 1.7 g/dL (3.4-5.0); Albumin/Globulin Ratio 0.4 (0.8-1.8); Bilirubin, Total 0.4 mg/dL (0.1-1.0); Bun/Creatinine Ratio 21.6 (12.0-20.0); Calcium, Blood 9.2 mg/dL (8.5-10.1); Creatinine, Blood 1.39 mg/dL (0.60-1.20); Globulin, Blood 4.7 g/dL (2.2-4.0); Potassium, Blood 3.3 mmol/L (3.5-5.5); Total Protein, Blood 6.4 g/dL (6.4-8.2)
--- NOTE | 2021-06-13 05:40 | NUR ---
CUSTOMS INSPECTOR SUMMARY PT AAOX4 AND PLEASANT. INDEPENDENT TO BSC. PT HAD BM TONIGHT AFTER NOT HAVING ONE FOR APPROXIMATELY 5 DAYS PER PT. CONTINUES ON IV OXICILLIN WITH NO ADVERSE EFFECTS NOTED. PT DENIES PAIN. WILL CONTINUE TO MONITOR.
--- NOTE | 2021-06-13 16:37 | NUR ---
Echocardiogram completed.
--- NOTE | 2021-06-13 19:25 | NUR ---
SHIFT SUMMARY: NO ACUTE EVENTS. NO EVENTS ON TELEMETRY, SR WITH PAC'S RATE IN 80'S. DENIES PAIN. HAD LARGE BM THIS MORNING, USING BSC INDEPENDENTLY. HAS 2+ EDEMA IN RLE. LE CT AND CARDIAC ECHO COMPLETE. TOLERATING DIET, GOOD APPETITE.
[2021-06-14 05:01] LABS: Hemoglobin 10.9 g/dL (13.5-17.5); Mean Corpuscular HGB 28.4 pg (26.0-34.0); Mean Corpuscular Volume 86 fL (80-100); Mean Platelet Volume 9.8 fL (9.1-12.4); Platelet Count 457 K/mm3 (150-400); RDW Coefficient Variation 14.1 % (11.7-14.2); RDW Standard Deviation 44.1 fL (35.1-46.3); Red Blood Cell Count 3.84 M/mm3 (4.30-5.90); White Blood Cell Count 17.44 K/mm3 (4.00-11.30)
[2021-06-14 05:38] LABS: Bun/Creatinine Ratio 20.9 (12.0-20.0); Calcium, Blood 9.2 mg/dL (8.5-10.1); Creatinine, Blood 1.29 mg/dL (0.60-1.20); Potassium, Blood 3.4 mmol/L (3.5-5.5)
--- NOTE | 2021-06-14 18:14 | NUR ---
SHIFT SUMMARY: FEBRILE TO 101.5 AT 1555; DR. DILLON NOTIFIED BY PHONE, TYLENOL GIVEN. DEFERVESCED TO 97 AT 1715, DIAPHORETIC. DENIED PAIN, BUT HAS NEUROPATHY IN HANDS AND FEET. NO EVENTS ON TELEMETRY, SR 80-90. CBG 76 BEFORE DINNER; MAY NEED ADJUSTMENT OF AM DOSE OF 70/30 INSULIN. HAD SHOWER WITH ASSISTANCE. TOLERATING PO INTAKE.
[2021-06-15 04:43] LABS: Hematocrit 30.9 % (37.0-53.0); Hemoglobin 10.3 g/dL (13.5-17.5); Mean Corpuscular HGB 28.3 pg (26.0-34.0); Mean Corpuscular HGB Conc 33.3 g/dL (31.5-36.5); Mean Corpuscular Volume 85 fL (80-100); Mean Platelet Volume 9.4 fL (9.1-12.4); Platelet Count 493 K/mm3 (150-400); RDW Coefficient Variation 13.9 % (11.7-14.2); RDW Standard Deviation 43.5 fL (35.1-46.3); Red Blood Cell Count 3.64 M/mm3 (4.30-5.90); White Blood Cell Count 12.49 K/mm3 (4.00-11.30)
[2021-06-15 05:00] LABS: Bun/Creatinine Ratio 20.5 (12.0-20.0); Calcium, Blood 9.1 mg/dL (8.5-10.1); Creatinine, Blood 1.27 mg/dL (0.60-1.20); Potassium, Blood 3.7 mmol/L (3.5-5.5)
--- NOTE | 2021-06-15 05:46 | NUR ---
TECHNICAL SERVICES SPECIALIST SUMMARY PATIENT HAD NO COMPLAINT OVERNIGHT. HIS VITALS WERE STABLE. WILL CONTINUE TO MONITOR PATIENT.
--- NOTE | 2021-06-15 17:46 | NUR ---
SHIFT SUMMARY PATIENT IS ALERT AND ORIENTED, PLEASANT AND COOPERATIVE WITH CARE. PATIENT RECEIVED INSULIN THIS SHIFT FOR COVERAGE. PATIENT HAS NOT REPORTED ANY DISCOMFORT THIS SHIFT. PATIENT HAS BEEN RECEIVING ANTIBIOTICS. PATIENT WORKED WITH THERAPY THIS SHIFT, UP TO THE CHAIR, AND BEDSIDE COMMODE WITH 1 PERSON ASSIST. PATIENT CALLS TO MAKE NEEDS KNOWN. VITAL SIGNS STABLE, WILL CONTINUE TO CARE FOR PATIENT UNTIL ONCOMING SHIFT REPORT IS MADE.
--- NOTE | 2021-06-16 04:26 | NUR ---
SHIFT SUMMARY NO ACUTE CHANGES TO REPORT THIS SHIFT. PT HAS RESTED MOST OF THE NIGHT, IV ABX CONTINUED ORDERED. PT INDEPENDENT TO THE BSC. PT REPORTS PAIN IN RIGHT FOOT IMPROVED THIS SHIFT. ASSESSMENT REMAINS UNCHANGED. BED IN LOWEST POSITION, CALL LIGHT WITHIN REACH.
[2021-06-16 05:41] LABS: BASOPHILS ABSOLUTE AUTO 0.09 K/mm3 (0.00-0.23); BASOPHILS PERCENT AUTO 1 % (0-2); EOSINOPHILS ABSOLUTE AUTO 0.35 K/mm3 (0.00-0.68); EOSINOPHILS PERCENT AUTO 3 % (0-6); Hematocrit 33.6 % (37.0-53.0); Hemoglobin 11.1 g/dL (13.5-17.5); IMMATURE GRAN ABSOLUTE AUTO 0.71 K/mm3 (0.00-0.10); IMMATURE GRAN PERCENT AUTO 5 % (0-1); LYMPHOCYTES ABSOLUTE AUTO 3.04 K/mm3 (0.84-5.20); LYMPHOCYTES PERCENT AUTO 23 % (21-46); MONOCYTES ABSOLUTE AUTO 0.86 K/mm3 (0.16-1.47); MONOCYTES PERCENT AUTO 7 % (4-13); Mean Corpuscular HGB 28.2 pg (26.0-34.0); Mean Corpuscular Volume 86 fL (80-100); Mean Platelet Volume 9.6 fL (9.1-12.4); NEUTROPHILS ABSOLUTE AUTO 8.17 K/mm3 (1.96-9.15); NEUTROPHILS PERCENT AUTO 62 % (41-73); NRBC ABSOLUTE 0.02 K/mm3 (0.00-0.02); NRBC Auto 0.2 /100 WBC (0.0-0.2); Platelet Count 565 K/mm3 (150-400); RDW Coefficient Variation 13.9 % (11.7-14.2); RDW Standard Deviation 43.9 fL (35.1-46.3); Red Blood Cell Count 3.93 M/mm3 (4.30-5.90); White Blood Cell Count 13.22 K/mm3 (4.00-11.30)
[2021-06-16 06:02] LABS: BASOPHILS ABSOLUTE MAN 0.13 K/mm3 (0.00-0.23); BASOPHILS PERCENT MAN 1 % (0-2); EOSINOPHILS ABSOLUTE MAN 0.39 K/mm3 (0.00-0.68); EOSINOPHILS PERCENT MAN 3 % (0-6); LYMPHOCYTES % ATYPICAL MANUAL 1 % (0-0); LYMPHOCYTES ABSOLUTE MAN 3.43 K/mm3 (0.84-5.20); LYMPHOCYTES PERCENT MAN 25 % (21-46); MONOCYTES ABSOLUTE MAN 0.79 K/mm3 (0.16-1.47); MONOCYTES PERCENT MAN 6 % (4-13); NEUTROPHILS ABSOLUTE MAN 8.46 K/mm3 (1.96-9.15); SEG NEUTROPHILS PERCENT MAN 64 % (41-73); TOTAL CELLS COUNTED 100
[2021-06-16 06:08] LABS: Albumin, Blood 2.1 g/dL (3.4-5.0); Anion Gap 9 mmol/L (6-16); Blood Urea Nitrogen 27 mg/dL (8-24); Bun/Creatinine Ratio 21.8 (12.0-20.0); CO2, Blood 24 mmol/L (21-32); Calcium, Blood 9.1 mg/dL (8.5-10.1); Chloride, Blood 101 mmol/L (98-108); Creatinine, Blood 1.24 mg/dL (0.60-1.20); Glomerular Filtration Rate 58 (60-); Glucose, Blood 129 mg/dL (70-99); Phosphorus, Blood 3.5 mg/dL (2.5-4.9); Potassium, Blood 4.6 mmol/L (3.5-5.5); Sodium, Blood 134 mmol/L (136-145)
--- NOTE | 2021-06-16 16:15 | NUR ---
SHIFT SUMMARY PATIENT DENIES PAIN, NAUSEA, AND SHORTNESS OF BREATH. PATIENT MEDICATED WITH TYLENOL FOR TEMP OF 101. PATIENT IS INDEPENDENT TO THE BSC. PATIENT PULLED IV THIS MORNING, POWERGLIDE PLACED IN JOHNNA DUE TO POSSIBLE DISCHARGE TO SNF WITH IV ANTIBIOTICS TOMORROW. PATIENT IS EATING AND DRINKING WELL. PATIENT HAD VISITOR IN AFTERNOON. PATIENT IS PLEASANT AND COOPERATIVE WITH CARE.
--- NOTE | 2021-06-17 01:55 | NUR ---
TALEND DEVELOPER SUMMARY PATIENT HAS A FAIR SHIFT, VITALS ARE STABLE. HE LODGED NIL FRESHS COMPLAINT. WILL CONTINUE TO MONITOR PATIENT.
[2021-06-17 09:40] LABS: BASOPHILS ABSOLUTE AUTO 0.09 K/mm3 (0.00-0.23); BASOPHILS PERCENT AUTO 1 % (0-2); EOSINOPHILS ABSOLUTE AUTO 0.32 K/mm3 (0.00-0.68); EOSINOPHILS PERCENT AUTO 2 % (0-6); Hematocrit 34.3 % (37.0-53.0); Hemoglobin 11.3 g/dL (13.5-17.5); IMMATURE GRAN ABSOLUTE AUTO 0.76 K/mm3 (0.00-0.10); IMMATURE GRAN PERCENT AUTO 5 % (0-1); LYMPHOCYTES ABSOLUTE AUTO 3.08 K/mm3 (0.84-5.20); LYMPHOCYTES PERCENT AUTO 21 % (21-46); MONOCYTES ABSOLUTE AUTO 0.61 K/mm3 (0.16-1.47); MONOCYTES PERCENT AUTO 4 % (4-13); Mean Corpuscular HGB 28.3 pg (26.0-34.0); Mean Corpuscular HGB Conc 32.9 g/dL (31.5-36.5); Mean Corpuscular Volume 86 fL (80-100); Mean Platelet Volume 9.6 fL (9.1-12.4); NEUTROPHILS ABSOLUTE AUTO 9.68 K/mm3 (1.96-9.15); NEUTROPHILS PERCENT AUTO 67 % (41-73); Platelet Count 623 K/mm3 (150-400); RDW Coefficient Variation 14.1 % (11.7-14.2); RDW Standard Deviation 44.5 fL (35.1-46.3); White Blood Cell Count 14.54 K/mm3 (4.00-11.30)
[2021-06-17 10:11] LABS: Albumin, Blood 2.1 g/dL (3.4-5.0); Anion Gap 7 mmol/L (6-16); Blood Urea Nitrogen 29 mg/dL (8-24); CO2, Blood 27 mmol/L (21-32); Calcium, Blood 9.4 mg/dL (8.5-10.1); Chloride, Blood 100 mmol/L (98-108); Creatinine, Blood 1.38 mg/dL (0.60-1.20); Glomerular Filtration Rate 51 (60-); Glucose, Blood 203 mg/dL (70-99); Phosphorus, Blood 3.9 mg/dL (2.5-4.9); Potassium, Blood 4.6 mmol/L (3.5-5.5); Sodium, Blood 134 mmol/L (136-145)
--- NOTE | 2021-06-17 17:45 | NUR ---
SHIFT SUMMARY PATIENT DENIES PAIN, NAUSEA, AND SHORTNESS OF BREATH. PATIENT IS INDEPENDENT TO THE BSC. PATIENT HAD A CBG OF 68 AT 1700. SNACKS GIVEN. PATIENT IS EATING AND DRINKING 100% OF ALL MEAlS. PATIENT TELE RUNNING SR IN THE 90S. PATIENT IS PLEASANT AND COOPERATIVE WITH CARE.
[2021-06-18 07:23] LABS: BASOPHILS PERCENT AUTO 1 % (0-2); EOSINOPHILS ABSOLUTE AUTO 0.33 K/mm3 (0.00-0.68); EOSINOPHILS PERCENT AUTO 2 % (0-6); Hematocrit 33.8 % (37.0-53.0); Hemoglobin 11.2 g/dL (13.5-17.5); IMMATURE GRAN ABSOLUTE AUTO 0.74 K/mm3 (0.00-0.10); IMMATURE GRAN PERCENT AUTO 5 % (0-1); LYMPHOCYTES ABSOLUTE AUTO 3.05 K/mm3 (0.84-5.20); LYMPHOCYTES PERCENT AUTO 22 % (21-46); MONOCYTES ABSOLUTE AUTO 0.73 K/mm3 (0.16-1.47); MONOCYTES PERCENT AUTO 5 % (4-13); Mean Corpuscular HGB 28.4 pg (26.0-34.0); Mean Corpuscular HGB Conc 33.1 g/dL (31.5-36.5); Mean Corpuscular Volume 86 fL (80-100); Mean Platelet Volume 9.4 fL (9.1-12.4); NEUTROPHILS PERCENT AUTO 65 % (41-73); Platelet Count 621 K/mm3 (150-400); RDW Coefficient Variation 14.1 % (11.7-14.2); RDW Standard Deviation 44.4 fL (35.1-46.3); Red Blood Cell Count 3.95 M/mm3 (4.30-5.90); White Blood Cell Count 14.05 K/mm3 (4.00-11.30)
[2021-06-18 08:04] LABS: BAND PERCENT MAN 2 % (0-8); BASOPHILS PERCENT MAN 0 % (0-2); EOSINOPHILS ABSOLUTE MAN 0.14 K/mm3 (0.00-0.68); EOSINOPHILS PERCENT MAN 1 % (0-6); LYMPHOCYTES ABSOLUTE MAN 3.09 K/mm3 (0.84-5.20); LYMPHOCYTES PERCENT MAN 22 % (21-46); METAMYELOCYTE ABSOLUTE MAN 0.14 K/mm3 (0.00-0.00); METAMYELOCYTE PERCENT MAN 1 % (0-0); MONOCYTES ABSOLUTE MAN 0.14 K/mm3 (0.16-1.47); MONOCYTES PERCENT MAN 1 % (4-13); NEUTROPHILS ABSOLUTE MAN 10.53 K/mm3 (1.96-9.15); SEG NEUTROPHILS PERCENT MAN 73 % (41-73); TOTAL CELLS COUNTED 100
[2021-06-18 08:11] LABS: Albumin, Blood 2.2 g/dL (3.4-5.0); Anion Gap 8 mmol/L (6-16); Blood Urea Nitrogen 32 mg/dL (8-24); Bun/Creatinine Ratio 20.6 (12.0-20.0); CO2, Blood 25 mmol/L (21-32); Calcium, Blood 8.8 mg/dL (8.5-10.1); Chloride, Blood 103 mmol/L (98-108); Creatinine, Blood 1.55 mg/dL (0.60-1.20); Glomerular Filtration Rate 44 (60-); Glucose, Blood 72 mg/dL (70-99); Phosphorus, Blood 4.3 mg/dL (2.5-4.9); Potassium, Blood 4.7 mmol/L (3.5-5.5); Sodium, Blood 136 mmol/L (136-145)
--- NOTE | 2021-06-18 18:05 | NUR ---
SHIFT SUMMARY PATIENT DENIES PAIN, NAUSEA, AND SHORTNESS OF BREATH. PATIENT USES THE BSC INDEPENDENTLY. PATIENT NAPPED THIS AFTERNOON. PATIENT HAD A VISITOR, NEPHEW. PATIENT ASKED IF HIS NEPHEW COULD TAKE HIM FOR A STROLL IN A WHEELCHAIR. PATIENT WAS ADVISED TO WEAR A MASK AND STAY ON THIS FLOOR. PATIENT WAS VERY HAPPY TO GET OUT OF HIS ROOM FOR A LITTLE BIT. PATIENT IS EATING AND DRINKING WELL. PATIENT IS PLEASANT AND COOPERATIVE WITH CARE. POSSIBLE DISCHARGE TOMORROW.
--- NOTE | 2021-06-19 05:12 | NUR ---
TOP BOTTOM ATTACHING MACHINE OPERATOR SUMMARY NO ACUTE CHANGES THIS SHIFT. PT AAOX4 AND INDEPENDENT. VERY PLEASANT. MEDICATED X1 WITH TYLENOL FOR SOME 3/10 PAIN IN HIS R FOOT AND LEFT HAND. PAIN RELIEVED WITH TYLENOL. CONTINUED ON IV OXACILLIN. VSS, WILL CONTINUE TO MONITOR.
[2021-06-19 06:02] LABS: BASOPHILS ABSOLUTE AUTO 0.09 K/mm3 (0.00-0.23); BASOPHILS PERCENT AUTO 1 % (0-2); EOSINOPHILS ABSOLUTE AUTO 0.28 K/mm3 (0.00-0.68); EOSINOPHILS PERCENT AUTO 3 % (0-6); Hematocrit 37.3 % (37.0-53.0); Hemoglobin 12.2 g/dL (13.5-17.5); IMMATURE GRAN ABSOLUTE AUTO 0.55 K/mm3 (0.00-0.10); IMMATURE GRAN PERCENT AUTO 5 % (0-1); LYMPHOCYTES ABSOLUTE AUTO 3.36 K/mm3 (0.84-5.20); LYMPHOCYTES PERCENT AUTO 31 % (21-46); MONOCYTES ABSOLUTE AUTO 0.61 K/mm3 (0.16-1.47); MONOCYTES PERCENT AUTO 6 % (4-13); Mean Corpuscular HGB 28.1 pg (26.0-34.0); Mean Corpuscular HGB Conc 32.7 g/dL (31.5-36.5); Mean Corpuscular Volume 86 fL (80-100); Mean Platelet Volume 9.4 fL (9.1-12.4); NEUTROPHILS ABSOLUTE AUTO 5.86 K/mm3 (1.96-9.15); NEUTROPHILS PERCENT AUTO 55 % (41-73); Platelet Count 639 K/mm3 (150-400); RDW Standard Deviation 43.8 fL (35.1-46.3); Red Blood Cell Count 4.34 M/mm3 (4.30-5.90); White Blood Cell Count 10.75 K/mm3 (4.00-11.30)
[2021-06-19 06:21] LABS: BAND PERCENT MAN 4 % (0-8); BASOPHILS PERCENT MAN 0 % (0-2); EOSINOPHILS ABSOLUTE MAN 0.21 K/mm3 (0.00-0.68); EOSINOPHILS PERCENT MAN 2 % (0-6); LYMPHOCYTES % ATYPICAL MANUAL 3 % (0-0); LYMPHOCYTES PERCENT MAN 24 % (21-46); METAMYELOCYTE ABSOLUTE MAN 0.53 K/mm3 (0.00-0.00); METAMYELOCYTE PERCENT MAN 5 % (0-0); MONOCYTES ABSOLUTE MAN 0.75 K/mm3 (0.16-1.47); MONOCYTES PERCENT MAN 7 % (4-13); NEUTROPHILS ABSOLUTE MAN 6.34 K/mm3 (1.96-9.15); SEG NEUTROPHILS PERCENT MAN 55 % (41-73); TOTAL CELLS COUNTED 100
--- NOTE | 2021-06-19 06:42 | NUR ---
PT POWERGLIDE UNABLE TO FLUSH OR DRAW. REPOSITIONED PT'S ARM IN SEVERAL POSITIONS AND ALSO HAD PT SIT UP AND STAND UP AND WAS STILL UNABLE TO FLUSH OR DRAW FROM PG. CHANGED PG DRESSING, STILL UNABLE TO DRAW/FLUSH. NOTIFIED BARREL ENDSHAKE ADJUSTER WHO WILL ASK DAY SHIFT CHARGE TO REPLACE PG. HELD 0600 ABX UNTIL NEW PG CAN BE PLACED. WILL ALSO NOTIFY ONCOMING RN.
[2021-06-19 07:13] LABS: Albumin, Blood 2.3 g/dL (3.4-5.0); Anion Gap 7 mmol/L (6-16); Blood Urea Nitrogen 32 mg/dL (8-24); Bun/Creatinine Ratio 22.4 (12.0-20.0); CO2, Blood 25 mmol/L (21-32); Calcium, Blood 9.6 mg/dL (8.5-10.1); Chloride, Blood 104 mmol/L (98-108); Creatinine, Blood 1.43 mg/dL (0.60-1.20); Glomerular Filtration Rate 49 (60-); Glucose, Blood 115 mg/dL (70-99); Phosphorus, Blood 4.5 mg/dL (2.5-4.9); Sodium, Blood 136 mmol/L (136-145)
[2021-06-19 15:03] LABS: SARS-Cov-2 (COVID-19) PCR, MMC NEGATIVE (NEGATIVE)
[2021-06-19] MEDS ORDERED: ENOX40I SC (15:16)
[2021-06-19] MEDS ORDERED: DOCU100 PO (15:16)
[2021-06-19] MEDS ORDERED: ACET325 PO (15:16)
[2021-06-19] MEDS ORDERED: BASAGLAR K100 UNIT/6 SC (15:17)
[2021-06-19] MEDS ORDERED: INSULANPEN SC (15:17)
[2021-06-19] MEDS ORDERED: FAMO20 PO (15:17)
[2021-06-19] MEDS ORDERED: ONDA4ODT MM (15:18)
[2021-06-19] MEDS ORDERED: HUMULIN R100 UNIT/2 SC (15:18)
[2021-06-19] MEDS ORDERED: SENN187 PO (15:19)
[2021-06-19] MEDS ORDERED: OXACILLIN SODIUM2 G1 IV (15:19)
[2021-06-19] MEDS ORDERED: VISBIOME 112.51 EACH PO (15:20)
--- NOTE | 2021-06-19 17:30 | NUR ---
DISCHARGE SUMMARY PATIENT DISCHARGED TO [facility]. PATIENT ALERT AND ORIENTED THIS SHIFT. PATIENT SHOWERED INDEPENDENTLY THIS MORNING. PATIENT DISCHARGED FOR IV ANTIBIOTICS, POWERGLIDE REPLACED BY RUSS AMATO THIS SHIFT DUE TO PREVIOUS POWERGLIDE NOT FUNCTIONING. PATIENT MEDICATED 1X FOR PAIN IN RIGHT SHOULDER THIS AFTERNOON. PATIENT TRANSPORTED BY WHEELCHAIR VAN.
== END 2021-06-19 16:41 | DRG 872 ==
LOC: ER 09:49 → MEDS 16:08 → ERHOLD 16:08 → MEDS 06-12 12:07
PROVIDERS: Internal Medicine; Physician Assistant; ADMIT Internal Medicine
DX: A41.01 Sepsis due to Methicillin susceptible Staphylococcus aureus (principal); L03.115 Cellulitis of right lower limb; E87.1 Hypo-osmolality and hyponatremia; N17.9 Acute kidney failure, unspecified; Z20.822 Contact with and (suspected) exposure to COVID-19; R65.20 Severe sepsis without septic shock; E11.65 Type 2 diabetes mellitus with hyperglycemia; E87.6 Hypokalemia; E78.5 Hyperlipidemia, unspecified; E11.51 Type 2 diabetes mellitus with diabetic peripheral angiopathy without gangrene; N18.30 Chronic kidney disease, stage 3 unspecified; E11.22 Type 2 diabetes mellitus with diabetic chronic kidney disease; I12.9 Hypertensive chronic kidney disease with stage 1 through stage 4 chronic kidney disease, or unspecified chronic kidney disease; D63.1 Anemia in chronic kidney disease; E11.42 Type 2 diabetes mellitus with diabetic polyneuropathy; D75.839 Thrombocytosis, unspecified; R29.6 Repeated falls; I25.10 Atherosclerotic heart disease of native coronary artery without angina pectoris; F32.A Depression, unspecified; Z88.1 Allergy status to other antibiotic agents; Z28.21 Immunization not carried out because of patient refusal; Z79.4 Long term (current) use of insulin; Z79.82 Long term (current) use of aspirin; Z79.899 Other long term (current) drug therapy; Z95.5 Presence of coronary angioplasty implant and graft; Z98.890 Other specified postprocedural states; Z87.891 Personal history of nicotine dependence; Z89.411 Acquired absence of right great toe; Z89.421 Acquired absence of other right toe(s); Z79.02 Long term (current) use of antithrombotics/antiplatelets
CPT/HCPCS: 36415; 73630; 73701; 80048; 80053; 80069; 82947; 83605; 85025; 85027; 85651; 86140; 87040; 87077; 87147; 87186; 93308; 93321; 93971; 94760; 96365; 96366; 97110; 97162; 97530; 99285-25; A9270; J1650; J1815; J2700; J3370; J7030; J7050; Q9967; U0004

== ENCOUNTER 2021-07-06 11:59 | Inpatient (IN) | payer OTHER ==
[~2021-07-06] VITALS: Ht 170.2 cm; Wt 87.2 kg
[~2021-07-06 11:59] MED LIST changes: +ACET325 PO; +BASAGLAR K100 UNIT/6 SC; +DOCU100 PO; +ENOX40I SC; +FAMO20 PO; +FENO145 PO; +HUMULIN R100 UNIT/2 SC; +INSULANPEN SC; +ONDA4ODT MM; +OXACILLIN SODIUM2 G1 IV; +SENN187 PO; +TAMS.4ER PO; +VISBIOME 112.51 EACH PO
[2021-07-06 12:29] LABS: BASOPHILS ABSOLUTE AUTO 0.05 K/mm3 (0.00-0.23); BASOPHILS PERCENT AUTO 0 % (0-2); EOSINOPHILS PERCENT AUTO 1 % (0-6); Hemoglobin 10.9 g/dL (13.5-17.5); IMMATURE GRAN ABSOLUTE AUTO 0.08 K/mm3 (0.00-0.10); IMMATURE GRAN PERCENT AUTO 1 % (0-1); LYMPHOCYTES ABSOLUTE AUTO 2.56 K/mm3 (0.84-5.20); LYMPHOCYTES PERCENT AUTO 21 % (21-46); MONOCYTES ABSOLUTE AUTO 0.93 K/mm3 (0.16-1.47); MONOCYTES PERCENT AUTO 8 % (4-13); Mean Corpuscular HGB 28.8 pg (26.0-34.0); Mean Corpuscular HGB Conc 34.1 g/dL (31.5-36.5); Mean Corpuscular Volume 84 fL (80-100); Mean Platelet Volume 10.2 fL (9.1-12.4); NEUTROPHILS ABSOLUTE AUTO 8.64 K/mm3 (1.96-9.15); NEUTROPHILS PERCENT AUTO 70 % (41-73); Platelet Count 417 K/mm3 (150-400); RDW Coefficient Variation 13.4 % (11.7-14.2); RDW Standard Deviation 41.8 fL (35.1-46.3); Red Blood Cell Count 3.79 M/mm3 (4.30-5.90); White Blood Cell Count 12.36 K/mm3 (4.00-11.30)
[2021-07-06 12:54] LABS: Albumin, Blood 2.5 g/dL (3.4-5.0); Albumin/Globulin Ratio 0.5 (0.8-1.8); Bilirubin, Total 0.4 mg/dL (0.1-1.0); Creatinine, Blood 1.21 mg/dL (0.60-1.20); Globulin, Blood 5.5 g/dL (2.2-4.0); Potassium, Blood 4.1 mmol/L (3.5-5.5)
--- NOTE | 2021-07-07 04:19 | NUR ---
PT WAS A/O X4 , STABLE VITALS, NO ACUTE CHANGES DURING THE SHIFT. NP0 AT MID NIGHT FOR SURGERY IN THE [facility] FOR DRAINING WOUND ON RIGHT FOOT WITH AMBUTATED TOES. ANTIBIOTICS GIVEN WITHOUT ANY REACTION.
[2021-07-07 04:41] LABS: BASOPHILS ABSOLUTE AUTO 0.05 K/mm3 (0.00-0.23); BASOPHILS PERCENT AUTO 1 % (0-2); EOSINOPHILS PERCENT AUTO 3 % (0-6); Hematocrit 30.7 % (37.0-53.0); Hemoglobin 10.4 g/dL (13.5-17.5); IMMATURE GRAN ABSOLUTE AUTO 0.08 K/mm3 (0.00-0.10); IMMATURE GRAN PERCENT AUTO 1 % (0-1); LYMPHOCYTES ABSOLUTE AUTO 2.32 K/mm3 (0.84-5.20); LYMPHOCYTES PERCENT AUTO 26 % (21-46); MONOCYTES PERCENT AUTO 9 % (4-13); Mean Corpuscular HGB 28.8 pg (26.0-34.0); Mean Corpuscular HGB Conc 33.9 g/dL (31.5-36.5); Mean Corpuscular Volume 85 fL (80-100); Mean Platelet Volume 9.8 fL (9.1-12.4); NEUTROPHILS ABSOLUTE AUTO 5.44 K/mm3 (1.96-9.15); NEUTROPHILS PERCENT AUTO 61 % (41-73); Platelet Count 353 K/mm3 (150-400); RDW Coefficient Variation 13.3 % (11.7-14.2); RDW Standard Deviation 41.2 fL (35.1-46.3); Red Blood Cell Count 3.61 M/mm3 (4.30-5.90); White Blood Cell Count 8.99 K/mm3 (4.00-11.30)
[2021-07-07 04:56] LABS: International Normalized Ratio 1.14; Prothrombin Time Results 11.9 Sec (9.7-11.5)
[2021-07-07 05:26] LABS: Anion Gap 9 mmol/L (6-16); Blood Urea Nitrogen 19 mg/dL (8-24); Bun/Creatinine Ratio 16.5 (12.0-20.0); CO2, Blood 25 mmol/L (21-32); Calcium, Blood 8.9 mg/dL (8.5-10.1); Chloride, Blood 103 mmol/L (98-108); Creatinine, Blood 1.15 mg/dL (0.60-1.20); Glomerular Filtration Rate >60 (60-); Glucose, Blood 191 mg/dL (70-99); Sodium, Blood 137 mmol/L (136-145)
--- NOTE | 2021-07-07 08:38 | NUR ---
PATIENT BP ELEVATED.NPO FOR PROCEDURE. CALL PLACED TO DR HARRINGTON. DR HARRINGTON ADVISED TO HOLD PO BP MEDS.
--- NOTE | 2021-07-07 11:45 | NUR ---
PT BP REMAINS ELEVATED AFTER GIVEN MEDS. INFORMED CHARGE NURSE WHO CONTACTED PROVIDER. PROVIDER AGREES TO GIVE COUPLE OF PO BP MEDS WITH SIP OF WATER
[2021-07-07 12:45] LABS: SARS-Cov-2 (COVID-19) PCR, MMC NEGATIVE (NEGATIVE)
--- NOTE | 2021-07-07 12:53 | NUR ---
PATIENT NPO FOR PROCEDURE. WILLIE FROM OR/SAME DAY SURGERY CALLED REQUESTING TO TREAT PT BLOOD GLUCOSE. CALL PLACED TO DR HARRINGTON. DR HARRINGTON ASKED NOT TO TREAT PATIENT BLOOD SUGAR AT THIS TIME.
--- NOTE | 2021-07-07 13:30 | NUR ---
Patient up to Ambulate independently. Gait steady. History, Chart, Medications and Allergies reviewed before start of procedure. Lungs clear T/O to Auscultation. Patient confirms NPO status and agrees with scheduled surgery. Pre-Op teaching done. Pt verbalizes understanding.
--- NOTE | 2021-07-07 13:32 | NUR ---
PATIENT PICKED UP FOR PROCEDURE. DR VELEZ REQUESTED TO TREAT BG. CHARGE NURSE JUANITA NOTIFIED. PT LEFT UNIT FOR PROCEDURE 8619
--- NOTE | 2021-07-07 14:33 | NUR ---
VO FROM TO GIVE REG INSULIN 5U, THEN TOLD TO HOLD.
--- NOTE | 2021-07-07 19:28 | NUR ---
PATIENT A/O X4. AMBULATES WITH ASSIST TO THE BATHROOM TREATED HIGH BP PER EMAR. NO COMPLAINTS OF PAIN. ANTIBIOTICS STARTED. NO REACTION TO MEDS. REPORT GIVEN TO STOKER INSTALLATION MECHANIC NURSE WHO WILL CONTINUE TO MONITOR PATIENT
--- NOTE | 2021-07-08 05:09 | NUR ---
SHIFT SUMMARY PT IS A&0X3. FULL CODE STATUS.NO COMPLAINS OF PAIN. PT IS RESTING COMFORTABLY IN BED. NO ACUTE EVENTS DURING SHIFT. WILL CONTINUE TO MONITOR UNTI SHIFT CHANGE.
[2021-07-08 05:16] LABS: BASOPHILS ABSOLUTE AUTO 0.03 K/mm3 (0.00-0.23); BASOPHILS PERCENT AUTO 0 % (0-2); EOSINOPHILS ABSOLUTE AUTO 0.01 K/mm3 (0.00-0.68); EOSINOPHILS PERCENT AUTO 0 % (0-6); IMMATURE GRAN ABSOLUTE AUTO 0.09 K/mm3 (0.00-0.10); IMMATURE GRAN PERCENT AUTO 1 % (0-1); LYMPHOCYTES ABSOLUTE AUTO 1.52 K/mm3 (0.84-5.20); LYMPHOCYTES PERCENT AUTO 18 % (21-46); MONOCYTES PERCENT AUTO 7 % (4-13); Mean Corpuscular HGB Conc 33.3 g/dL (31.5-36.5); Mean Corpuscular Volume 84 fL (80-100); Mean Platelet Volume 9.6 fL (9.1-12.4); NEUTROPHILS PERCENT AUTO 74 % (41-73); Platelet Count 408 K/mm3 (150-400); RDW Coefficient Variation 13.4 % (11.7-14.2); RDW Standard Deviation 41.6 fL (35.1-46.3); Red Blood Cell Count 3.57 M/mm3 (4.30-5.90); White Blood Cell Count 8.55 K/mm3 (4.00-11.30)
[2021-07-08 05:37] LABS: Anion Gap 10 mmol/L (6-16); Blood Urea Nitrogen 21 mg/dL (8-24); CO2, Blood 25 mmol/L (21-32); Calcium, Blood 9.1 mg/dL (8.5-10.1); Chloride, Blood 105 mmol/L (98-108); Creatinine, Blood 1.05 mg/dL (0.60-1.20); Glomerular Filtration Rate >60 (60-); Glucose, Blood 231 mg/dL (70-99); Potassium, Blood 4.1 mmol/L (3.5-5.5); Sodium, Blood 140 mmol/L (136-145)
--- NOTE | 2021-07-08 19:16 | NUR ---
PT A/O X4. AMBULATES WELL TO THE BATHROOM. ALL MEDS GIVEN. NO COMPLAINTS OF PAIN.NO SIGNS OF ACURTE CHANGES. REPORT GIVEN TO BOAT CLEANER NURSE.
--- NOTE | 2021-07-09 04:45 | NUR ---
SHIFT SUMMARY PT IS AOX4. VS REVIEWED. NO COMPLAINTS OF PAIN . NO NEW CONCERN FOR THIS SHIFT.PT IS RESTING COMFORTABLY IN BED. WILL CONTINUE TO MONITOR UNTIL DAY SHIFT ARRIVES.
--- NOTE | 2021-07-09 18:44 | NUR ---
SHIFT SUMMARY PT AAOX4, ABLE TO MAKE NEEDS KNOWN. PLEASANT AND COOPERATIVE TO CARE. NO C/O PAIN OR ANY DISCOMFORT THIS SHIFT. NO C/O CP, SOB, OR N&V. PT SEEN BY DR. SALEH THIS SHIFT. WOUND VAC PLACED BY FRIDA AMATO MEN'S DESIGNER ORDERED. PT TOLERATED WELL. PT CONTINUES ON ABX TX ORDERED, NO ASE NOTED. BED AT LOWEST POSITION. CALL LIGHT WITHIN REACH.
--- NOTE | 2021-07-10 04:34 | NUR ---
A/OX4. PT HAS BEEN INDEPENDENT TO BSC. I/D ON 07/[address] W[address] VAC WAS PL[address] 07/09 WITH MINIMAL OUTPUT. DIET: ADA. PIV RT. UA IS A DAY 4 IV.
--- NOTE | 2021-07-10 13:40 | NUR ---
CALLED DR HARRINGTON ABOUT PT BG 362. PT WAS SWITCHED TO MED SS AFTER BREAKFAST. NEW SS USED FOR THIS BG. PT MEDICATED WITH 15 UNITS AT THAT TIME. WILL RECHECK AFTER PT HAS COMPLETED HIS LUNCH.
--- NOTE | 2021-07-10 18:31 | NUR ---
SHIFT SUMMARY- PT ALERT AND ORIENTED AND CALLS APPROPRIATELY. PT HAS HAD NO C/O PAIN TODAY. PT HAD A FULL SHOWER TODAY AND THEN A SUBSEQUENT WOUND VAC CHANGE WAS DONE THERE WAS A LEAK IN THE SUCTION THAT COULD NOT BE LOCATED. PT IS CURRENTLY IN BED EATING HIS DINNER NO S&S OF DISTRESS NOTED, CALL LIGHT IN REACH.
--- NOTE | 2021-07-10 22:15 | NUR ---
Jeremy's BP improved at 22:15 (157/78)
--- NOTE | 2021-07-11 06:24 | NUR ---
XANDER'S GLUCOSE WAS IN THE 300 BEFORE HE RECEIVED HIS LANTUS LAST NIGHT AND HIS SYSTOLYC BP WAS 173. HE WAS ADMINISTERED HIS CARDIOVASCULAR MEDS, THIS MORNING HIS SYSTOLIC BP WAS 105. HE HAD A RESTFUL NIGHT
[2021-07-11] MEDS ORDERED: SULTRIDS PO (14:36)
--- NOTE | 2021-07-11 16:23 | NUR ---
DISCHARGE SUMMARY PT DISCHARGED TO HOME WITH HOME HEALTH SERVICES THIS SHIFT ORDERED. PT IS AAOX4, ABLE TO MAKE NEEDS KNOWN, PLEASANT AND COOPERATIVE TO CARE. NO C/O PAIN OR ANY DISCOMFORT THIS SHIFT. NO CONCERNS OR ISSUES NOTED TO PATIENT T/O DISCHARGE PROCESS. PT VERBALIZED UNDERSTANDING OF DISCHARGE ORDES AND EDUCATION. HOME WOUND VAC IN PLACE. NO ISSUES NOTED TO WOUND VAC DRESSING. IV LINE DISCONTINUED PRIOR TO DISCHARGE. DISCHARGE PAPERWORK GIVEN TO PATIENT UPON DISCHARGE.
== END 2021-07-11 15:53 | disposition home health service (06) | DRG 854 ==
LOC: ER 11:59 → MEDS 16:22
PROVIDERS: Nurse Practitioner Acute Care; Physician Assistant; Podiatrist; Student in an Organized Health Care Education/Training Program; ADMIT Internal Medicine
PROC: 0JBQ0ZZ Excision of Right Foot Subcutaneous Tissue and Fascia, Open Approach (ICD-10-PCS; 2021-07-07)
PROC: 0J9Q0ZZ Drainage of Right Foot Subcutaneous Tissue and Fascia, Open Approach (ICD-10-PCS; principal; 2021-07-07 13:30)
DX: A41.9 Sepsis, unspecified organism (principal); M86.171 Other acute osteomyelitis, right ankle and foot; L02.611 Cutaneous abscess of right foot; N18.30 Chronic kidney disease, stage 3 unspecified; I10 Essential (primary) hypertension; I25.10 Atherosclerotic heart disease of native coronary artery without angina pectoris; E11.22 Type 2 diabetes mellitus with diabetic chronic kidney disease; I12.9 Hypertensive chronic kidney disease with stage 1 through stage 4 chronic kidney disease, or unspecified chronic kidney disease; F32.A Depression, unspecified; E78.5 Hyperlipidemia, unspecified; Z98.890 Other specified postprocedural states; Z95.5 Presence of coronary angioplasty implant and graft; Z88.1 Allergy status to other antibiotic agents
CPT/HCPCS: 36415; 73620; 80048; 80053; 80202; 82947; 83036; 83605; 84145; 85025; 85610; 85651; 87040; 87070; 87071; 87075; 87077; 87147; 87186; 87205; 94760; 97116; 97162; 97165; 97530; 97535; 99285-25; A9270; J0295; J0360; J1200; J1650; J1815; J2405; J2704; J2930; J3010; J3370; J7030; J7050; J7120; U0004

== ENCOUNTER 2021-08-04 14:27 | Inpatient (IN) | payer OTHER ==
[~2021-08-04] VITALS: Ht 172.7 cm; Wt 88.1 kg
[~2021-08-04 14:27] MED LIST changes: +SULTRIDS PO
[2021-08-04 15:27] LABS: BASOPHILS ABSOLUTE AUTO 0.06 K/mm3 (0.00-0.23); BASOPHILS PERCENT AUTO 1 % (0-2); EOSINOPHILS ABSOLUTE AUTO 0.28 K/mm3 (0.00-0.68); EOSINOPHILS PERCENT AUTO 2 % (0-6); Hematocrit 32.1 % (37.0-53.0); Hemoglobin 10.2 g/dL (13.5-17.5); IMMATURE GRAN ABSOLUTE AUTO 0.24 K/mm3 (0.00-0.10); IMMATURE GRAN PERCENT AUTO 2 % (0-1); LYMPHOCYTES ABSOLUTE AUTO 2.51 K/mm3 (0.84-5.20); LYMPHOCYTES PERCENT AUTO 20 % (21-46); MONOCYTES ABSOLUTE AUTO 0.85 K/mm3 (0.16-1.47); MONOCYTES PERCENT AUTO 7 % (4-13); Mean Corpuscular HGB 26.6 pg (26.0-34.0); Mean Corpuscular HGB Conc 31.8 g/dL (31.5-36.5); Mean Corpuscular Volume 84 fL (80-100); Mean Platelet Volume 9.3 fL (9.1-12.4); NEUTROPHILS PERCENT AUTO 69 % (41-73); Platelet Count 545 K/mm3 (150-400); RDW Coefficient Variation 14.2 % (11.7-14.2); RDW Standard Deviation 43.6 fL (35.1-46.3); Red Blood Cell Count 3.83 M/mm3 (4.30-5.90); White Blood Cell Count 12.54 K/mm3 (4.00-11.30)
[2021-08-04 15:53] LABS: Alanine Aminotransfer (ALT/SGP 19 U/L (12-78); Albumin, Blood 2.6 g/dL (3.4-5.0); Albumin/Globulin Ratio 0.6 (0.8-1.8); Alk Phos 77 U/L (50-136); Anion Gap 7 mmol/L (6-16); Aspartate Aminotrans (AST/SGOT 25 U/L (12-37); Bilirubin, Total 0.2 mg/dL (0.1-1.0); Blood Urea Nitrogen 27 mg/dL (8-24); Bun/Creatinine Ratio 20.1 (12.0-20.0); CO2, Blood 23 mmol/L (21-32); Calcium, Blood 9.4 mg/dL (8.5-10.1); Chloride, Blood 103 mmol/L (98-108); Creatinine, Blood 1.34 mg/dL (0.60-1.20); Globulin, Blood 4.7 g/dL (2.2-4.0); Glomerular Filtration Rate 53 (60-); Glucose, Blood 151 mg/dL (70-99); Potassium, Blood 4.1 mmol/L (3.5-5.5); Sodium, Blood 133 mmol/L (136-145); Total Protein, Blood 7.3 g/dL (6.4-8.2); Troponin I <0.015 ng/mL (0.000-0.040)
[2021-08-05 05:50] LABS: BASOPHILS ABSOLUTE AUTO 0.04 K/mm3 (0.00-0.23); BASOPHILS PERCENT AUTO 0 % (0-2); EOSINOPHILS PERCENT AUTO 3 % (0-6); Hematocrit 28.8 % (37.0-53.0); Hemoglobin 9.3 g/dL (13.5-17.5); IMMATURE GRAN ABSOLUTE AUTO 0.14 K/mm3 (0.00-0.10); IMMATURE GRAN PERCENT AUTO 2 % (0-1); LYMPHOCYTES ABSOLUTE AUTO 1.93 K/mm3 (0.84-5.20); LYMPHOCYTES PERCENT AUTO 21 % (21-46); MONOCYTES ABSOLUTE AUTO 0.84 K/mm3 (0.16-1.47); MONOCYTES PERCENT AUTO 9 % (4-13); Mean Corpuscular HGB 26.6 pg (26.0-34.0); Mean Corpuscular HGB Conc 32.3 g/dL (31.5-36.5); Mean Corpuscular Volume 82 fL (80-100); Mean Platelet Volume 9.2 fL (9.1-12.4); NEUTROPHILS ABSOLUTE AUTO 6.09 K/mm3 (1.96-9.15); NEUTROPHILS PERCENT AUTO 65 % (41-73); Platelet Count 470 K/mm3 (150-400); RDW Coefficient Variation 14.1 % (11.7-14.2); RDW Standard Deviation 42.6 fL (35.1-46.3); White Blood Cell Count 9.34 K/mm3 (4.00-11.30)
[2021-08-05 06:57] LABS: Alanine Aminotransfer (ALT/SGP 18 U/L (12-78); Albumin, Blood 2.2 g/dL (3.4-5.0); Albumin/Globulin Ratio 0.5 (0.8-1.8); Alk Phos 61 U/L (50-136); Anion Gap 9 mmol/L (6-16); Aspartate Aminotrans (AST/SGOT 18 U/L (12-37); Bilirubin, Total 0.3 mg/dL (0.1-1.0); Blood Urea Nitrogen 22 mg/dL (8-24); CO2, Blood 25 mmol/L (21-32); Chloride, Blood 102 mmol/L (98-108); Creatinine, Blood 1.16 mg/dL (0.60-1.20); Globulin, Blood 4.2 g/dL (2.2-4.0); Glomerular Filtration Rate >60 (60-); Glucose, Blood 153 mg/dL (70-99); Potassium, Blood 4.1 mmol/L (3.5-5.5); Sodium, Blood 136 mmol/L (136-145); Total Protein, Blood 6.4 g/dL (6.4-8.2)
--- NOTE | 2021-08-05 15:19 | NUR ---
DRESSING CHANGED TO R FOOT. CLEANSED WITH WOUND CLEANSER, COVERED WITH ABD, KERLEX AND YASSINE WRAP. NO DRAINAGE FROM OPEN AREA. FOOT SWOLLEN AND RED, WARM TO TOUCH. PT DENIES PAIN FROM NEUROPATHY.
--- NOTE | 2021-08-05 16:07 | NUR ---
SHIFT SUMMARY NO ACUTE CHANGES SINCE ARRIVAL TO FLOOR. PT MOVES WELL IN ROOM. VOIDING, TOLERATING PO. NAUSEA X1 MEDICATED PER EMAR. TOLERATING WELL. PLAN IS TO AWAIT PODIATRY CONSULT AND POSSIBLY DEBRIDE. DRESSING REMAINS CDI. PER ED DOCUMENTATION DR SALEH AWARE OF PATIENTS ADMISSION. HE REMAINS AA0X4.
--- NOTE | 2021-08-06 03:46 | NUR ---
SHIFT SUMMARY: PATIENT IS AOX4, MOVES INDEPENDENTLY IN THE ROOM, NO COMPLAINTS OF PAIN, USES THE BEDSIDE COMMODE,RIGHT FOOT COVERED WITH DRESSING & ACEWRAP. AWAITING PODIATRY CONSULT, PER AR RN REPORT, DR. SALEH ( HAIR DRYER ) WAS ALREADY AWARE BUT HAS NOT SEEN PT. YET. WILL CONTINUE TO MONITOR.
--- NOTE | 2021-08-06 06:49 | NUR ---
FACILITIES MANAGER STATED THAT PT. REFUSED TO HAVE HIS AM LAB DRAWN AT 4 AM, ISTEAD HE WANTED IT TO BE DRAWN TOGETHER WITH THE VANC THROUGH AT 9 AM.
[2021-08-06 09:33] LABS: Hemoglobin 9.6 g/dL (13.5-17.5); Mean Corpuscular HGB 26.5 pg (26.0-34.0); Mean Corpuscular Volume 83 fL (80-100); Mean Platelet Volume 9.2 fL (9.1-12.4); Platelet Count 474 K/mm3 (150-400); RDW Coefficient Variation 13.9 % (11.7-14.2); RDW Standard Deviation 42.2 fL (35.1-46.3); Red Blood Cell Count 3.62 M/mm3 (4.30-5.90); White Blood Cell Count 10.82 K/mm3 (4.00-11.30)
[2021-08-06 09:52] LABS: Alanine Aminotransfer (ALT/SGP 21 U/L (12-78); Albumin, Blood 2.1 g/dL (3.4-5.0); Albumin/Globulin Ratio 0.4 (0.8-1.8); Alk Phos 57 U/L (50-136); Anion Gap 7 mmol/L (6-16); Aspartate Aminotrans (AST/SGOT 19 U/L (12-37); Bilirubin, Total 0.3 mg/dL (0.1-1.0); Blood Urea Nitrogen 25 mg/dL (8-24); Bun/Creatinine Ratio 21.6 (12.0-20.0); CO2, Blood 27 mmol/L (21-32); Calcium, Blood 9.4 mg/dL (8.5-10.1); Chloride, Blood 100 mmol/L (98-108); Creatinine, Blood 1.16 mg/dL (0.60-1.20); Globulin, Blood 5.2 g/dL (2.2-4.0); Glomerular Filtration Rate >60 (60-); Glucose, Blood 260 mg/dL (70-99); Potassium, Blood 4.2 mmol/L (3.5-5.5); Sodium, Blood 134 mmol/L (136-145); Total Protein, Blood 7.3 g/dL (6.4-8.2)
--- NOTE | 2021-08-06 16:09 | NUR ---
SHIFT SUMMARY PODIATRY IN TO SEE PATIENT TODAY. PLAN IS FOR PROCEDURE IN THE AM. NPO AT MIDNIGHT AND HOLD PLAVIX. PT AA0X4. IND IN ROOM VOIDING IN BSC. TOLERATES PO WELL. NO PAIN OR NAUSEA. DRESSING TO FOOT CHANGED BY DR. SALEH. DRESSING CDI.
--- NOTE | 2021-08-07 02:28 | NUR ---
SHIFT SUMMARY: PATIENT IA AOX4, INDEPENDENT IN ROOM, DENIES PAIN, URINARY OUTPUT WNL, NO PROBLEM WITH EATING & DRINKING, NPO BEGINNING MIDNIGHT FOR RIGHT FOOT SURGERY TODAY. NO NEW UNUSUALITIES NOTED, ABLE TO MAKE NEEDS KNOWN, EDUCATED TO CALL FOR HELP, CLWR. HS CBG WAS 216, WILL CONTINUE TO MONITOR.
[2021-08-07 05:01] LABS: Hematocrit 28.7 % (37.0-53.0); Hemoglobin 9.1 g/dL (13.5-17.5); Mean Corpuscular HGB 26.2 pg (26.0-34.0); Mean Corpuscular HGB Conc 31.7 g/dL (31.5-36.5); Mean Corpuscular Volume 83 fL (80-100); Mean Platelet Volume 9.2 fL (9.1-12.4); Platelet Count 418 K/mm3 (150-400); RDW Coefficient Variation 13.9 % (11.7-14.2); RDW Standard Deviation 41.6 fL (35.1-46.3); Red Blood Cell Count 3.47 M/mm3 (4.30-5.90); White Blood Cell Count 7.64 K/mm3 (4.00-11.30)
[2021-08-07 05:40] LABS: Anion Gap 7 mmol/L (6-16); Blood Urea Nitrogen 28 mg/dL (8-24); Bun/Creatinine Ratio 24.3 (12.0-20.0); CO2, Blood 26 mmol/L (21-32); Calcium, Blood 8.9 mg/dL (8.5-10.1); Chloride, Blood 103 mmol/L (98-108); Creatinine, Blood 1.15 mg/dL (0.60-1.20); Glomerular Filtration Rate >60 (60-); Glucose, Blood 146 mg/dL (70-99); Potassium, Blood 4.2 mmol/L (3.5-5.5); Sodium, Blood 136 mmol/L (136-145)
[2021-08-07 10:36] LABS: Vancomycin, Trough 17.6 ug/mL (5.0-10.0)
[2021-08-07 14:32] LABS: Influenza A, PCR NEGATIVE (NEGATIVE); Influenza B, PCR NEGATIVE (NEGATIVE); Resp Syncytial Virus, PCR NEGATIVE (NEGATIVE); SARS-Cov-2 (COVID-19) PCR, MMC NEGATIVE (NEGATIVE)
--- NOTE | 2021-08-07 14:54 | NUR ---
Patient gave me permission at 0720 on 08/07/2021 to help care for him today.
--- NOTE | 2021-08-07 16:51 | NUR ---
PT TAKEN TO DAY SURGERY AT THIS TIME
--- NOTE | 2021-08-07 17:34 | NUR ---
PT'S FAMILY MEMBER TERRI CALLED FOR UPDATE REGARDING THE PT. HER NAME IS NOT LISTED ON CONSENT TO RELEASE INFORMATION. PT IS CURRENTLY OFF OF THE UNIT IN OR SO UNABLE TO OBTAIN VERBAL CONSENT. SHE WAS EDUCATED THAT FAMILY MEMBER WALLY COULD CALL FOR AN UPDATE, OTHERWISE SHE CAN CALL BACK LATER THIS EVENING WHEN PT CAN PROVIDE CONSENT.
--- NOTE | 2021-08-07 17:44 | NUR ---
SHIFT SUMMARY PT HAS BEEN NPO FOR SURGERY TODAY; PT IS CURRENTLY IN OR. PT HAS BEEN INDEPENDENT IN THE ROOM. PT DENIED PAIN TO HIS R FOOT T/O THE DAY. VSS. REPORT TO REZA AMATO.
--- NOTE | 2021-08-08 04:19 | NUR ---
SHIFT SUMMARY: PATIENT SLEPT WELL, DENIES PAIN, STATED HE IS HAPPY, NO NEW UNUSUALITIES NOTED, URINATION WNL, RIGHT FOOT I & D DRESSING C/D/I. WILL CONTINUE TO MONITOR.
[2021-08-08 05:55] LABS: Hematocrit 29.9 % (37.0-53.0); Hemoglobin 9.5 g/dL (13.5-17.5); Mean Corpuscular HGB 26.4 pg (26.0-34.0); Mean Corpuscular HGB Conc 31.8 g/dL (31.5-36.5); Mean Corpuscular Volume 83 fL (80-100); Mean Platelet Volume 9.3 fL (9.1-12.4); Platelet Count 430 K/mm3 (150-400); RDW Coefficient Variation 13.7 % (11.7-14.2); RDW Standard Deviation 41.4 fL (35.1-46.3); White Blood Cell Count 8.44 K/mm3 (4.00-11.30)
[2021-08-08 06:51] LABS: Alanine Aminotransfer (ALT/SGP 23 U/L (12-78); Albumin, Blood 2.1 g/dL (3.4-5.0); Albumin/Globulin Ratio 0.5 (0.8-1.8); Alk Phos 63 U/L (50-136); Anion Gap 10 mmol/L (6-16); Aspartate Aminotrans (AST/SGOT 26 U/L (12-37); Bilirubin, Total 0.3 mg/dL (0.1-1.0); Blood Urea Nitrogen 24 mg/dL (8-24); Bun/Creatinine Ratio 22.9 (12.0-20.0); CO2, Blood 24 mmol/L (21-32); Calcium, Blood 8.7 mg/dL (8.5-10.1); Chloride, Blood 102 mmol/L (98-108); Creatinine, Blood 1.05 mg/dL (0.60-1.20); Glomerular Filtration Rate >60 (60-); Glucose, Blood 181 mg/dL (70-99); Potassium, Blood 4.1 mmol/L (3.5-5.5); Sodium, Blood 136 mmol/L (136-145); Total Protein, Blood 6.1 g/dL (6.4-8.2)
--- NOTE | 2021-08-08 19:24 | NUR ---
SHIFT SUMMARY PT IS POD#1 FROM I&D OF R FOOT. PAIN MANAGED WITH TYLENOL. PT HAS BEEN ABLE TO GET TO THE BSC INDEPENDENTLY. HE IS CONTINUING IV ABX. REPORT GIVEN TO REZA AMATO.
--- NOTE | 2021-08-09 03:37 | NUR ---
SHIFT SUMMARY: PATIENT IS AOX4, VERY PLEASANT, INDEPENDENT IN ROOM, DENIED PAIN, NO ISSUES WITH URINATION. RIGHT FOOT S/P I&D WITH GAUZE DRESSING & ACEWRAP ON C/D/I, NO COMPLAINTS THROUGHOUT THE NIGHT, ABLE TO SLEEP WELL, IV ACCESS C/D/I & INFUSING WELL. SEEN BY EATING DISORDER SPECIALIST YESTERDAY. ON IV ANTIBIOTICS, WILL CONTINUE TO MONITOR.
--- NOTE | 2021-08-09 04:47 | NUR ---
PATIENT SLEEPING COMFORTABLY, UNLABORED BREATHING OF 18/MIN. WILL CONTINUE TO MONITOR.
--- NOTE | 2021-08-09 19:06 | NUR ---
SHIFT SUMMARY POD2 R FOOT I&D, A/OX4, VSS, TOLERATING PO, USES BSC INDEPENDETLY, VOIDING WELL, WOUND VAC PLACED PER ORDER, PT DENIES PAIN T/O SHIFT, PLEASANT AND COOPERATIVE. NO ACUTE EVENTS THIS SHIFT, CALL LIGHT IN REACH, REPORT GIVEN TO DAY RN.
--- NOTE | 2021-08-10 06:13 | NUR ---
SHIFT SUMMARY: PATIENT AOX4, RIGHT FOOT S/P I & D CONNECTED TO WOUND VAC WITHOUT ISSUES, INDEPENDENT IN TOILETING, SLEPT WELL LAST NIGHT. IV ACCESS TO LEFT ARM DISCONTINUED RELATED TO INFILTRATION, NEW IV 20 G PLACED IN RIGHT HAND,PT. INFUSING & PT.TOLERATED WELL.NO NEW UNUSUALITIES NOTED.
--- NOTE | 2021-08-10 19:10 | NUR ---
SHIFT SUMMARY POD3 R FOOT I&D, A/O X4, VSS, TOLERATING PO, VOIDING INDEPENDENTLY, WOUND VAC IN PLACE TO R FOOT c SCANT DRAINAGE NOTED IN CANISTER, DENIES PAIN, PLEASANT AND COOPERATIVE c ALL NURSING CARE, ABLE TO MAKE NEEDS KNOWN. CALL LIGHT IN REACH, REPORT GIVEN TO REZA RN.
--- NOTE | 2021-08-11 05:44 | NUR ---
SHIFT SUMMARY: PATIENT AOX4, RIGHT FOOT WITH YASSINE WRAP CONNECTED TO WOUND VAC WITHOUT PROBLEMS.PT. SLEPT WELL LAST NIGHT, INDEPENDENT IN VOIDING VIA BEDSIDE COMMODE.WILL CONTINUE TO MONITOR.
--- NOTE | 2021-08-11 18:39 | NUR ---
SHIFT SUMMARY PT POD #4 FOR R FOOT I&D WITH WOUND VAC IN PLACE. WOUND VAC DRESSING CDI. NO ACUTE CHANGES THIS SHIFT. [facility] ORDER TO RECEIVE IV ANTIBIOTICS AND WOUND CARE. VSS. WILL REPORT TO REZA AMATO.
--- NOTE | 2021-08-12 03:40 | NUR ---
PT IS ALERT AND ORIENTED X4 AND VERY PLEASANT. EATING AND DRINKING WELL. VOIDING AND HOPING TO HAVE A BM TODAY. TYLENOL WAS GIVEN ONCE. WOUND VAC FUNCTIONING WELL WITH SS OUTPUT.
[2021-08-12 12:28] LABS: Influenza A, PCR NEGATIVE (NEGATIVE); Influenza B, PCR NEGATIVE (NEGATIVE); Resp Syncytial Virus, PCR NEGATIVE (NEGATIVE); SARS-Cov-2 (COVID-19) PCR, MMC NEGATIVE (NEGATIVE)
--- NOTE | 2021-08-12 16:22 | NUR ---
ATTEMPTED TO CALL [facility] FOR REPORT BUT PHONES ARE BUSY AND "WRONG NUMBER" FRONT END DEVELOPER DESIGNER AT [facility] NOTIFIED, STATES SHE WILL CALL BACK.
--- NOTE | 2021-08-12 16:45 | NUR ---
DC'D VIA W/C TRANSPORT, RACHELE ADMISSION COORDINATOR AT [place] NOTIFIED, STILL UNABLE TO REACH [facility] FOR REPORT.
--- NOTE | 2021-08-12 17:05 | NUR ---
REPORT GIVEN TO RN AT [facility].
== END 2021-08-12 16:48 | DRG 478 ==
LOC: ER 14:27 → ERHOLD 22:42 → SURS 22:42
PROVIDERS: Internal Medicine; Physician Assistant; Podiatrist; ADMIT Internal Medicine
PROC: 0KBV0ZZ Excision of Right Foot Muscle, Open Approach (ICD-10-PCS; 2021-08-07)
PROC: 0QBL0ZX Excision of Right Tarsal, Open Approach, Diagnostic (ICD-10-PCS; principal; 2021-08-07 07:30)
DX: T87.43 Infection of amputation stump, right lower extremity (principal); M86.171 Other acute osteomyelitis, right ankle and foot; L97.413 Non-pressure chronic ulcer of right heel and midfoot with necrosis of muscle; Z20.822 Contact with and (suspected) exposure to COVID-19; E11.69 Type 2 diabetes mellitus with other specified complication; E11.22 Type 2 diabetes mellitus with diabetic chronic kidney disease; N18.30 Chronic kidney disease, stage 3 unspecified; K59.00 Constipation, unspecified; E11.610 Type 2 diabetes mellitus with diabetic neuropathic arthropathy; F32.A Depression, unspecified; E11.621 Type 2 diabetes mellitus with foot ulcer; I12.9 Hypertensive chronic kidney disease with stage 1 through stage 4 chronic kidney disease, or unspecified chronic kidney disease; E78.5 Hyperlipidemia, unspecified; D63.1 Anemia in chronic kidney disease; I25.10 Atherosclerotic heart disease of native coronary artery without angina pectoris; Z88.1 Allergy status to other antibiotic agents; Z79.82 Long term (current) use of aspirin; Z79.4 Long term (current) use of insulin; Z79.02 Long term (current) use of antithrombotics/antiplatelets; Z79.899 Other long term (current) drug therapy; Z95.5 Presence of coronary angioplasty implant and graft; Z98.890 Other specified postprocedural states; Z87.891 Personal history of nicotine dependence; Y83.8 Other surgical procedures as the cause of abnormal reaction of the patient, or of later complication, without mention of misadventure at the time of the procedure
CPT/HCPCS: 0241U; 36415; 71046; 73630; 73718; 80048; 80053; 80202; 82947; 83036; 83605; 83690; 83880; 84484; 85025; 85027; 85651; 86140; 87070; 87071; 87075; 87077; 87147; 87186; 87205; 88305; 88311; 93005; 93010; 96365; 96366; 96367; 96372; 96376; 99285-25; A9270; J1815; J2185; J2405; J2704; J3010; J3370; J7030; J7050

== ENCOUNTER 2021-09-21 11:58 | Day surgery (SDC) | payer OTHER | END 2021-09-21 14:29 | disposition home or self-care (01) | LOC: ATC 11:58 | DX: E11.69 Type 2 diabetes mellitus with other specified complication (principal); M86.171 Other acute osteomyelitis, right ankle and foot; L03.115 Cellulitis of right lower limb; I12.9 Hypertensive chronic kidney disease with stage 1 through stage 4 chronic kidney disease, or unspecified chronic kidney disease; N18.30 Chronic kidney disease, stage 3 unspecified | CPT/HCPCS: 99212; C1751 ==

== ENCOUNTER 2021-09-26 03:31 | Day surgery (SDC) | payer OTHER | END 2021-09-26 08:25 | disposition home or self-care (01) | LOC: ATC 03:31 | DX: Z45.2 Encounter for adjustment and management of vascular access device (principal); E11.42 Type 2 diabetes mellitus with diabetic polyneuropathy; I12.9 Hypertensive chronic kidney disease with stage 1 through stage 4 chronic kidney disease, or unspecified chronic kidney disease; N18.30 Chronic kidney disease, stage 3 unspecified; E11.22 Type 2 diabetes mellitus with diabetic chronic kidney disease | CPT/HCPCS: 99211 ==

== ENCOUNTER 2021-10-05 00:10 | Day surgery (SDC) | payer OTHER | END 2021-10-05 11:25 | disposition home or self-care (01) | LOC: ATC 00:10 | DX: Z45.2 Encounter for adjustment and management of vascular access device (principal); M86.171 Other acute osteomyelitis, right ankle and foot; L03.115 Cellulitis of right lower limb | CPT/HCPCS: 99212; C1751 ==

== ENCOUNTER 2021-11-29 14:33 | Inpatient (IN) | payer OTHER ==
[~2021-11-29] VITALS: Ht 170.2 cm; Wt 84.7 kg
[2021-11-29 15:57] LABS: BASOPHILS ABSOLUTE AUTO 0.03 K/mm3 (0.00-0.23); BASOPHILS PERCENT AUTO 0 % (0-2); EOSINOPHILS ABSOLUTE AUTO 0.13 K/mm3 (0.00-0.68); EOSINOPHILS PERCENT AUTO 1 % (0-6); Hematocrit 33.9 % (37.0-53.0); Hemoglobin 10.6 g/dL (13.5-17.5); IMMATURE GRAN ABSOLUTE AUTO 0.18 K/mm3 (0.00-0.10); IMMATURE GRAN PERCENT AUTO 1 % (0-1); LYMPHOCYTES ABSOLUTE AUTO 2.25 K/mm3 (0.84-5.20); LYMPHOCYTES PERCENT AUTO 17 % (21-46); MONOCYTES ABSOLUTE AUTO 0.72 K/mm3 (0.16-1.47); MONOCYTES PERCENT AUTO 5 % (4-13); Mean Corpuscular HGB 25.1 pg (26.0-34.0); Mean Corpuscular HGB Conc 31.3 g/dL (31.5-36.5); Mean Corpuscular Volume 80 fL (80-100); Mean Platelet Volume 9.4 fL (9.1-12.4); NEUTROPHILS ABSOLUTE AUTO 10.07 K/mm3 (1.96-9.15); NEUTROPHILS PERCENT AUTO 75 % (41-73); Platelet Count 564 K/mm3 (150-400); RDW Coefficient Variation 13.7 % (11.7-14.2); RDW Standard Deviation 39.8 fL (35.1-46.3); Red Blood Cell Count 4.22 M/mm3 (4.30-5.90); White Blood Cell Count 13.38 K/mm3 (4.00-11.30)
[2021-11-29 16:22] LABS: Alanine Aminotransfer (ALT/SGP 24 U/L (12-78); Albumin/Globulin Ratio 0.4 (0.8-1.8); Alk Phos 89 U/L (50-136); Anion Gap 6 mmol/L (6-16); Aspartate Aminotrans (AST/SGOT 24 U/L (12-37); Bilirubin, Total 0.4 mg/dL (0.1-1.0); Blood Urea Nitrogen 22 mg/dL (8-24); Bun/Creatinine Ratio 22.8 (12.0-20.0); CO2, Blood 28 mmol/L (21-32); Calcium, Blood 9.6 mg/dL (8.5-10.1); Chloride, Blood 97 mmol/L (98-108); Creatinine, Blood 0.97 mg/dL (0.60-1.20); Globulin, Blood 5.6 g/dL (2.2-4.0); Glomerular Filtration Rate >60 (60-); Glucose, Blood 313 mg/dL (70-99); Potassium, Blood 4.4 mmol/L (3.5-5.5); Sodium, Blood 131 mmol/L (136-145); Total Protein, Blood 7.6 g/dL (6.4-8.2)
--- NOTE | 2021-11-30 01:16 | NUR ---
PT TO THE FLOOR 2348 VIA WHEELCHAIR, ASSITED TO BED SBA. VSS. WOUND TO TOP LATERAL R FOOT, DRAINING SEROSANGUINOUS, DRESSING CHANGED, CLEANED WITH SKINTEGRITY. ORIENTED TO ROOM, CALL LIGHT IN REACH.
--- NOTE | 2021-11-30 01:40 | NUR ---
PT ARRIVEDTO FLOOR FROM ER. PT A/O, VSS. WOUND ON TOP OF RIGHT FOOT DRNG SS DRNG. FEW SCABS SCATTERED ON FOOT. SITE CLEANSED W/SKINTEGRITY AND DRESSED W/NON ADHEARANT DRESSING AND KERLEX. PT DENIES PAIN, REP HX NEUROPATHY, REP SENSATION AT BASELINE. PT ORIENTED TO ROOM/CALL LIGHT. PLAN TO TX PER ORDERS
--- NOTE | 2021-11-30 04:43 | NUR ---
SHIFT SUMMARY NEW ADMIT THIS SHIFT, VITALS STABLE. DENIES PAIN. PT TRANSFERS WITH ASSIST TO [facility], THIS SHIFT. WOUND DRAINING SEROSANGUNINOUS EXUDATE. ENCOURAGED PT NOT TO BEAR WEIGHT ON RIGHT FOOT. DRESSING CHANGED, CLEANED WITH SKINTEGRITY. PT IS AOX4, USES CALL LIGHT APPROPRIATELY. WILL CALL PODIATRY FOR CONSULT THIS AM. WILL CONTINUE TO MONITOR.
[2021-11-30 05:03] LABS: BASOPHILS ABSOLUTE AUTO 0.05 K/mm3 (0.00-0.23); BASOPHILS PERCENT AUTO 0 % (0-2); EOSINOPHILS ABSOLUTE AUTO 0.21 K/mm3 (0.00-0.68); EOSINOPHILS PERCENT AUTO 2 % (0-6); Hematocrit 35.1 % (37.0-53.0); Hemoglobin 10.9 g/dL (13.5-17.5); IMMATURE GRAN ABSOLUTE AUTO 0.18 K/mm3 (0.00-0.10); IMMATURE GRAN PERCENT AUTO 1 % (0-1); LYMPHOCYTES ABSOLUTE AUTO 2.12 K/mm3 (0.84-5.20); LYMPHOCYTES PERCENT AUTO 15 % (21-46); MONOCYTES PERCENT AUTO 5 % (4-13); Mean Corpuscular HGB 24.9 pg (26.0-34.0); Mean Corpuscular HGB Conc 31.1 g/dL (31.5-36.5); Mean Corpuscular Volume 80 fL (80-100); Mean Platelet Volume 9.2 fL (9.1-12.4); NEUTROPHILS ABSOLUTE AUTO 10.94 K/mm3 (1.96-9.15); NEUTROPHILS PERCENT AUTO 77 % (41-73); Platelet Count 586 K/mm3 (150-400); RDW Coefficient Variation 13.5 % (11.7-14.2); Red Blood Cell Count 4.37 M/mm3 (4.30-5.90)
[2021-11-30 05:55] LABS: Alanine Aminotransfer (ALT/SGP 26 U/L (12-78); Albumin/Globulin Ratio 0.4 (0.8-1.8); Alk Phos 95 U/L (50-136); Anion Gap 7 mmol/L (6-16); Aspartate Aminotrans (AST/SGOT 25 U/L (12-37); Bilirubin, Total 0.4 mg/dL (0.1-1.0); Blood Urea Nitrogen 19 mg/dL (8-24); Bun/Creatinine Ratio 23.5 (12.0-20.0); CO2, Blood 28 mmol/L (21-32); Calcium, Blood 9.5 mg/dL (8.5-10.1); Chloride, Blood 98 mmol/L (98-108); Creatinine, Blood 0.81 mg/dL (0.60-1.20); Globulin, Blood 5.6 g/dL (2.2-4.0); Glomerular Filtration Rate >60 (60-); Glucose, Blood 226 mg/dL (70-99); Potassium, Blood 3.4 mmol/L (3.5-5.5); Sodium, Blood 133 mmol/L (136-145); Total Protein, Blood 7.6 g/dL (6.4-8.2)
--- NOTE | 2021-11-30 06:25 | NUR ---
PT UP TO BSC, R FOOT DRAINING, DRESSING CHANGED DUE TO SATURATION. REMINDED PT NOT PUT WEIGHT ON R FOOT. WILL REPORT TO [facility] NURSE.
--- NOTE | 2021-11-30 06:33 | NUR ---
PT HAD NO ACUTE CHANGES SINCE ARRIVING TO FLOOR. VSS. RIGHT FOOT WOUND DRNG SS DRNG; DRESSING CHANGED X2. PT DENIED PAIN. PT HAS BEEN NPO SINCE 399, IVF CONT PER ORDERS. PT USING CALL LIGHT FOR ASSISTANCE, ENC TO CALL FOR ASSISTANCE W/TRANSFERS OOB.
--- NOTE | 2021-11-30 09:00 | NUR ---
CALL PLACED TO DR SALEH OFFICE FOR PODIATRY CONSULT
--- NOTE | 2021-11-30 09:30 | NUR ---
DR KENNEDY AT BEDSIDE. REMOVED DRESSING FROM R FOOT. SMALL AMOUNT OF YELLOW DRAINAGE PRESENT. CLEANED W/ SKINTEGRITY & RE-DRESSED W/ GAUZE 4X4 & GAUZE WRAP.
--- NOTE | 2021-11-30 12:30 | NUR ---
DR. SALEH AT BEDSIDE. REMOVED DRESSING & CLEANED WOUND W/ SKINTEGRITY. GAVE ORDERS TO CONSULT ORTHOPEDIC SURGERY FOR RIGHT FOOT CELLULITIS & ABCESS. CONSULT CALLED TO DR JEREZ'S OFFICE. R FOOT RE-DRESSED W/ GAUZE.
--- NOTE | 2021-11-30 15:14 | NUR ---
PATIENT WAS BROUGHT TO DAY SURGERY FOR HIS PROCEDURE.
--- NOTE | 2021-11-30 15:25 | NUR ---
PT TO OR VIA BED AT 1505
[2021-11-30 15:59] LABS: Influenza A, PCR NEGATIVE (NEGATIVE); Influenza B, PCR NEGATIVE (NEGATIVE); Resp Syncytial Virus, PCR NEGATIVE (NEGATIVE); SARS-Cov-2 (COVID-19) PCR, MMC NEGATIVE (NEGATIVE)
--- NOTE | 2021-11-30 17:52 | NUR ---
PATIENT RETURNED TO ROOM FROM PACU. SITTING UP IN BED, IN GOOD SPIRITS, TALKING & LAUGHING WITH STAFF. DENIES ANY PAIN AT THIS TIME. STUMP SOCK IN PLACE TO RLE, C/D/I. VSS ON RA. TOLERATING PO LIQUIDS. WILL CONTINUE TO MONITOR & REPORT TO NOC RN.
--- NOTE | 2021-12-01 04:07 | NUR ---
SUMMARY PATIENT SLEPT WELL T/O THE NIGHT WITH MINIMAL PAIN. MEDICATED PER EMAR FOR ANY PAIN THAT AROSE. PT TOLERATED PO INTAKE WELL AND WAS ASSISTED TO BSC. DRESSING ON RBKA REMAINS C/D/I, COVERED WITH SOCK. PT CURRENTLY SLEEPING IN NO NOTEABLE DISTRESS, CALL LIGHT IN REACH.
[2021-12-01 04:15] LABS: BASOPHILS ABSOLUTE AUTO 0.01 K/mm3 (0.00-0.23); BASOPHILS PERCENT AUTO 0 % (0-2); EOSINOPHILS PERCENT AUTO 0 % (0-6); Hematocrit 31.4 % (37.0-53.0); Hemoglobin 9.6 g/dL (13.5-17.5); IMMATURE GRAN ABSOLUTE AUTO 0.15 K/mm3 (0.00-0.10); IMMATURE GRAN PERCENT AUTO 2 % (0-1); LYMPHOCYTES PERCENT AUTO 13 % (21-46); MONOCYTES ABSOLUTE AUTO 0.35 K/mm3 (0.16-1.47); MONOCYTES PERCENT AUTO 4 % (4-13); Mean Corpuscular HGB 24.9 pg (26.0-34.0); Mean Corpuscular HGB Conc 30.6 g/dL (31.5-36.5); Mean Corpuscular Volume 81 fL (80-100); Mean Platelet Volume 9.3 fL (9.1-12.4); NEUTROPHILS PERCENT AUTO 80 % (41-73); Platelet Count 467 K/mm3 (150-400); RDW Coefficient Variation 13.5 % (11.7-14.2); RDW Standard Deviation 40.2 fL (35.1-46.3); Red Blood Cell Count 3.86 M/mm3 (4.30-5.90); White Blood Cell Count 8.21 K/mm3 (4.00-11.30)
[2021-12-01 04:43] LABS: Anion Gap 8 mmol/L (6-16); Blood Urea Nitrogen 25 mg/dL (8-24); CO2, Blood 26 mmol/L (21-32); Calcium, Blood 8.7 mg/dL (8.5-10.1); Chloride, Blood 100 mmol/L (98-108); Creatinine, Blood 1.04 mg/dL (0.60-1.20); Glomerular Filtration Rate >60 (60-); Glucose, Blood 398 mg/dL (70-99); Magnesium, Blood 1.7 mg/dL (1.6-2.4); Potassium, Blood 4.7 mmol/L (3.5-5.5); Sodium, Blood 134 mmol/L (136-145)
--- NOTE | 2021-12-01 16:42 | NUR ---
SHIFT SUMMARY VSS ON RA T/O SHIFT. POD 1 R BKA, STUMP SOCK IN PLACE, C/D/I. PT TRANSFERRING VERY WELL TO BSC W/ GB & SBA. VERY PLEASANT & GOOD MOOD S/P BKA. PAIN MANAGED PER EMAR, MILD PAIN T/O SHIFT. EATING, DRINKING, & VOIDING WELL. WILL CONTINUE TO MONITOR & REPORT TO ONCOMING RN.
[2021-12-02 02:05] LABS: Hematocrit 28.8 % (37.0-53.0); Hemoglobin 9.1 g/dL (13.5-17.5); Mean Corpuscular HGB 25.4 pg (26.0-34.0); Mean Corpuscular HGB Conc 31.6 g/dL (31.5-36.5); Mean Corpuscular Volume 80 fL (80-100); Mean Platelet Volume 9.2 fL (9.1-12.4); Platelet Count 462 K/mm3 (150-400); RDW Coefficient Variation 13.3 % (11.7-14.2); Red Blood Cell Count 3.58 M/mm3 (4.30-5.90); White Blood Cell Count 8.31 K/mm3 (4.00-11.30)
[2021-12-02 02:19] LABS: Albumin, Blood 1.7 g/dL (3.4-5.0); Anion Gap 3 mmol/L (6-16); Blood Urea Nitrogen 38 mg/dL (8-24); CO2, Blood 32 mmol/L (21-32); Calcium, Blood 8.7 mg/dL (8.5-10.1); Chloride, Blood 101 mmol/L (98-108); Creatinine, Blood 1.15 mg/dL (0.60-1.20); Glomerular Filtration Rate >60 (60-); Glucose, Blood 192 mg/dL (70-99); Phosphorus, Blood 2.8 mg/dL (2.5-4.9); Potassium, Blood 4.8 mmol/L (3.5-5.5); Sodium, Blood 136 mmol/L (136-145)
--- NOTE | 2021-12-02 03:27 | NUR ---
PT IS A&OX4, INDEPENDENT IN BED, MOD ASSIST OOB AND CALLS APPROPRIATELY. POST OP DAY 2 FOR R BKA. PAIN IS WELL CONTROLLED WITH PRN TYLENOL. PT RECEIVING SCHEDULED IV ABX. PT ABLE TO TRANSFER TO BSC INDEPENDENTLY. WILL CONTINUE TO MONITOR PATIENT FOR ANY ACUTE CHANGES.
--- NOTE | 2021-12-02 17:21 | NUR ---
END OF SHIFT SUMMARY: PATIENT REMAINS AFEBRILE, DENIES CHEST PAIN, SOB, OR PRESSURE. PATIEENT HAS BEEN MAINLY INDEPENDENT TO GETTING TO BEDSIDE COMMODE AND PAIN HAS BEEN UNDER CONTROL WITH EMAR MEDS. PATIENT HAS BEEN ANSWERING QUESTIONS APPROPRIATELY AND IS ABLE TO MAKE NEEDS KNOWN. CBG HAS BEEN IN MORE CONTROL TODAY THAN PREVIOUSLY. PLAN IS FOR A BANDAGE CHANGE BY ORTHOPEDIC PROVIDER TOMORROW. PATIENT IS AWARE OF SITUATION, HAS BEEN PLEASANT WITH STAFF, NO CONCERNS OR QUESTIONS AT THIS TIME, ADDITIONALLY NO SIGNS OF ACUTE DISTRESS. WILL CONTINUE TO MONITOR AT THIS TIME.
[2021-12-03 02:17] LABS: Hematocrit 30.9 % (37.0-53.0); Hemoglobin 9.6 g/dL (13.5-17.5); Mean Corpuscular HGB 24.9 pg (26.0-34.0); Mean Corpuscular HGB Conc 31.1 g/dL (31.5-36.5); Mean Corpuscular Volume 80 fL (80-100); Mean Platelet Volume 9.1 fL (9.1-12.4); Platelet Count 492 K/mm3 (150-400); RDW Coefficient Variation 13.5 % (11.7-14.2); RDW Standard Deviation 38.7 fL (35.1-46.3); Red Blood Cell Count 3.85 M/mm3 (4.30-5.90); White Blood Cell Count 7.94 K/mm3 (4.00-11.30)
[2021-12-03 02:28] LABS: Anion Gap 6 mmol/L (6-16); Blood Urea Nitrogen 31 mg/dL (8-24); Bun/Creatinine Ratio 36.8 (12.0-20.0); CO2, Blood 30 mmol/L (21-32); Calcium, Blood 8.6 mg/dL (8.5-10.1); Chloride, Blood 100 mmol/L (98-108); Creatinine, Blood 0.84 mg/dL (0.60-1.20); Glomerular Filtration Rate >60 (60-); Glucose, Blood 166 mg/dL (70-99); Phosphorus, Blood 2.9 mg/dL (2.5-4.9); Potassium, Blood 4.2 mmol/L (3.5-5.5); Sodium, Blood 136 mmol/L (136-145); Vancomycin, Trough 18.1 ug/mL (5.0-10.0)
--- NOTE | 2021-12-03 04:34 | NUR ---
SHIFT SUMMARY A/O X4 AND IND TO BEDSIDE COMMODE. POD3 R BKA, STUMP SOCK C/D/I. VITAL SIGNS STABLE. PT VOIDING WELL, TOLERATING PO INTAKE. PAIN MANAGED WELL WITH MEDICATIONS PER EMAR. PLEASANT AND COOPERATIVE WITH CARE. PLAN IS FOR SURGEON TO CHANGE DRESSING TO R STUMP TODAY. PT AWARE AND AGREEABLE TO PLAN. WILL CONTINUE TO MONITOR AND REPORT TO ONCOMING RN.
--- NOTE | 2021-12-03 16:14 | NUR ---
IV ACCESS INFILTRATED UPON DELIVERY OF VANCO. COORDINATED WITH CHARGE NURSE FOR ADMINISTRATION ONCE PT RECEIVES POWERGLIDE.
--- NOTE | 2021-12-03 16:14 | NUR ---
SHIFT SUMMARY PT A&OX4, VSS/RA, POD3 R BKA, DRESSING CHANGED TO ABD PAD/STUMP SOCK APPLIED TODAY BY SURGEON. PAIN MANAGED WITH 5 MG OXY AND TORADOL. BELKIS PO ADA, CBGS AC. VOIDING WELL. SELF TRANSFERS TO BSC/BED. PLAN FOR POWERGLIDE TO BE PLACED FOR ABX 2WEEK TREATMENT. WILL REPORT TO NEXT RN.
--- NOTE | 2021-12-04 04:20 | NUR ---
SHIFT SUMMARY A/O X4. POD4 R BKA, DRESSING AND STUMP SOCK CHANGED YESTERDAY. STUMP SOCK SCANT AMOUNT OF DRAINAGE. PT TOLERATING PO INTAKE, VOIDING WELL, AND IS RESPONDING WELL TO PO PAIN MEDICATION ON EMAR. VITAL SIGNS STABLE. TRANSFERING INDEPENDENTLY TO BSC AND BACK TO BED. PLAN IS FOR PT TO GO TO SNF TODAY. WILL CONTINUE TO MONITOR AND REPORT TO ONCOMING RN.
[2021-12-04] MEDS ORDERED: TRAZ50 PO (11:51)
[2021-12-04] MEDS ORDERED: OXYC5 PO (11:51)
[2021-12-04] MEDS ORDERED: PROBIOTIC1 EA13 PO (11:52)
[2021-12-04] MEDS ORDERED: VANCOMYCIN HCL1 G1 IV (11:52)
[2021-12-04 14:43] LABS: Vancomycin, Random 15.1 ug/mL
[2021-12-04 17:41] LABS: Influenza A, PCR NEGATIVE (NEGATIVE); Influenza B, PCR NEGATIVE (NEGATIVE); Resp Syncytial Virus, PCR NEGATIVE (NEGATIVE); SARS-Cov-2 (COVID-19) PCR, MMC NEGATIVE (NEGATIVE)
--- NOTE | 2021-12-04 17:42 | NUR ---
POD 4 R BKA. STUMP SOCK IN PLACE, C/D/I. PAIN IS WELL MANAGED PER EMAR. PATIENT USES BEDSIDE COMMODE INDEPENDENTLY. CBG'S 104, 180, & 180 THIS SHIFT, COVERAGE PER EMAR. TOLERATING PO DIET WELL, VOIDING & HAVING BM'S. A&O X4, PLEASANT & COOPERATIVE. REPORT CALLED TO FRANCOIS CONTRERAS RN.
== END 2021-12-04 18:14 | DRG 474 ==
LOC: ER 14:33 → SURS 21:04
PROVIDERS: Internal Medicine; Orthopaedic Surgery; Pharmacist; Physician Assistant; ADMIT Internal Medicine
PROC: 3E03329 Introduction of Other Anti-infective into Peripheral Vein, Percutaneous Approach (ICD-10-PCS; 2021-11-29)
PROC: 0Y6H0Z3 Detachment at Right Lower Leg, Low, Open Approach (ICD-10-PCS; principal; 2021-11-30 15:00)
DX: T87.43 Infection of amputation stump, right lower extremity (principal); A41.02 Sepsis due to Methicillin resistant Staphylococcus aureus; L02.415 Cutaneous abscess of right lower limb; L03.115 Cellulitis of right lower limb; M86.8X7 Other osteomyelitis, ankle and foot; E11.628 Type 2 diabetes mellitus with other skin complications; E11.40 Type 2 diabetes mellitus with diabetic neuropathy, unspecified; I25.10 Atherosclerotic heart disease of native coronary artery without angina pectoris; Z20.822 Contact with and (suspected) exposure to COVID-19; E78.5 Hyperlipidemia, unspecified; F32.A Depression, unspecified; Z88.1 Allergy status to other antibiotic agents; Z95.5 Presence of coronary angioplasty implant and graft; Z98.890 Other specified postprocedural states; Z87.891 Personal history of nicotine dependence; Z79.4 Long term (current) use of insulin; Z79.82 Long term (current) use of aspirin; Z79.899 Other long term (current) drug therapy; Y83.5 Amputation of limb(s) as the cause of abnormal reaction of the patient, or of later complication, without mention of misadventure at the time of the procedure
CPT/HCPCS: 0241U; 36415; 73620; 80048; 80053; 80069; 80202; 82947; 83605; 83735; 85025; 85027; 85651; 86140; 87040; 87070; 87075; 87077; 87147; 87186; 87205; 88307; 88311; 93306; 96365; 96366; 96367; 97110; 97162; 97166; 97530; 97535; 99285-25; A9270; J1100; J1170; J1644; J1650; J1815; J1885; J2001; J2185; J2250; J2270; J2405; J2704; J3010; J3370; J3480; J7030; J7040; J7060; J7120

== ENCOUNTER 2024-10-29 07:36 | Inpatient (IN) | payer OTHER ==
[~2024-10-29] VITALS: Ht 172.7 cm; Wt 89.3 kg
[~2024-10-29 07:36] MED LIST changes: +OXYC5 PO; +PROBIOTIC1 EA13 PO; +VANCOMYCIN HCL1 G1 IV
[2024-10-29 07:52] LABS: Base Excess Venous -6.3 mmol/L; Bicarbonate Venous 19.6 mmol/L (24.0-30.0); PCO2 Venous 39.9 mmHg (38-42); pH Blood Venous 7.31 (7.34-7.37)
[2024-10-29 07:54] LABS: Hematocrit 39.8 % (37.0-53.0); Hemoglobin 13.4 g/dL (13.5-17.5); Mean Corpuscular HGB Conc 33.7 g/dL (31.5-36.5); Mean Corpuscular Volume 86 fL (80-100); Mean Platelet Volume 10.5 fL (9.1-12.4); Platelet Count 324 K/mm3 (150-400); RDW Coefficient Variation 13.7 % (11.7-14.2); Red Blood Cell Count 4.62 M/mm3 (4.30-5.90)
[2024-10-29] MEDS ORDERED: Ondansetron HCl 2 MG / ML 2ML Vial IV ONE ×2 (08:05→08:55)
[2024-10-29 08:12] LABS: Bun/Creatinine Ratio 20.7 (12.0-20.0); Calcium, Blood 8.7 mg/dL (8.5-10.1); Creatinine, Blood 1.21 mg/dL (0.60-1.20); Potassium, Blood 3.6 mmol/L (3.5-5.5)
[2024-10-29 08:21] LABS: BASOPHILS ABSOLUTE MAN 0.18 K/mm3 (0.00-0.23); BASOPHILS PERCENT MAN 1 % (0-2); EOSINOPHILS ABSOLUTE MAN 0.18 K/mm3 (0.00-0.68); EOSINOPHILS PERCENT MAN 1 % (0-6); LYMPHOCYTES ABSOLUTE MAN 5.42 K/mm3 (0.84-5.20); LYMPHOCYTES PERCENT MAN 29 % (21-46); MONOCYTES ABSOLUTE MAN 1.12 K/mm3 (0.16-1.47); MONOCYTES PERCENT MAN 6 % (4-13); NEUTROPHILS ABSOLUTE MAN 11.78 K/mm3 (1.96-9.15); SEG NEUTROPHILS PERCENT MAN 63 % (41-73); TOTAL CELLS COUNTED 100
[2024-10-29] MEDS ORDERED: Furosemide 10 MG/ML 4ML Vial IV ONE (08:45)
[2024-10-29 08:54] LABS: Influenza A, PCR NEGATIVE (NEGATIVE); Influenza B, PCR NEGATIVE (NEGATIVE); Resp Syncytial Virus, PCR NEGATIVE (NEGATIVE); SARS-Cov-2 (COVID-19) PCR, MMC NEGATIVE (NEGATIVE)
[2024-10-29] MEDS ORDERED: Azithromycin 500 MG in NS 250 ML IV ONE (09:40)
[2024-10-29] MEDS ORDERED: FLU VACC TS2024-25(6MOS UP)/PF 45 MCG/0.5 ML SYRINGE IM ONE (12:05)
[2024-10-29] MEDS ORDERED: Aspirin 81 MG Chew PO STA (13:48)
[2024-10-29 14:44] LABS: Anti-Xa UFH, PHA Monitoring <0.10 IU/mL; International Normalized Ratio 0.96; Prothrombin Time Results 10.3 Sec (9.7-11.5)
[2024-10-29] MEDS ORDERED: Dose Adjust by Pharmacy XX STA ×2 (14:48→23:33)
[2024-10-29] MEDS ORDERED: Heparin Sodium,Porcine/0.5 NS 500 ML IV SCH (14:50)
[2024-10-29] MEDS ORDERED: Heparin Sodium 5000 Units/ML 1ML MDV IV ONE ×2 (14:50→23:35)
[2024-10-29] MEDS ORDERED: Carvedilol 6.25 MG Tab PO SCH ×2 (15:00→17:00)
[2024-10-29] MEDS ORDERED: AmLODIPine Besylate 5 MG Tab PO SCH (15:00)
[2024-10-29] MEDS ORDERED: Furosemide 10 MG/ML 4ML Vial IV SCH ×2 (16:00→18:00)
[2024-10-29] MEDS ORDERED: LevoFLOXacin 750 MG/D5W 150ML 150 ML IV SCH (16:16)
[2024-10-29] MEDS ORDERED: Insulin Human Lispro 100 Units/ML 3ML Syringe SC SCH ×2 (16:30→17:30)
[2024-10-29] MEDS ORDERED: Clopidogrel Bisulfate 300 MG TABLET PO STA (16:44)
[2024-10-29 17:43] VITALS: BP 173/95
[2024-10-29] MEDS ORDERED: NITROGLYCERIN0.4 M3 (17:54)
[2024-10-29] MEDS ORDERED: NITR.4SL SL (17:58)
[2024-10-29] MEDS ORDERED: Insulin Regular 100 UNIT/ML 10ML Vial SC SCH (18:00)
[2024-10-29] MEDS ORDERED: Insulin Glargine-Yfgn 100 Unit/mL 3 ML SYR SC SCH (21:00)
[2024-10-29] MEDS ORDERED: Acetaminophen 325 MG TABLET PO PRN (22:10)
[2024-10-30] VITALS (31 sets, daily range): BP systolic 121–206; BP diastolic 46–154
[2024-10-30] MEDS ORDERED: Carvedilol 6.25 MG Tab PO SCH (00:05)
[2024-10-30] MEDS ORDERED: HydrALAZINE HCl 20 MG / ML 1ML Vial IV PRN (02:55)
--- NOTE | 2024-10-30 05:39 | NUR ---
SHIFT SUMMERY PT WAS ON NON REBREATHER AT 12L AT THE START OF SHIFT. HE HAS BEEN TITRATED DOWN TO NC AT 4L W/OXYGEN SAT >92%. HE HAS HAD NO EPISODES OF ACUTE RESP DISTRESS OR CHEST PAIN/PRESSURE THIS SHIFT. DR HANEY WAS NOTIFIED OF ALL CRITICAL LAB VALUES AND OF PT PERSISTENT HYPERTENSION. SEE ORDERS. AFEBRILE. PT HAS BEEN SR-ST ON THE LEAD MASON TENDER. HEPARIN GTT INFUSING PER MD ORDER.
[2024-10-30 06:31] LABS: BASOPHILS ABSOLUTE AUTO 0.02 K/mm3 (0.00-0.23); BASOPHILS PERCENT AUTO 0 % (0-2); EOSINOPHILS PERCENT AUTO 0 % (0-6); Hematocrit 35.6 % (37.0-53.0); Hemoglobin 12.2 g/dL (13.5-17.5); IMMATURE GRAN ABSOLUTE AUTO 0.13 K/mm3 (0.00-0.10); IMMATURE GRAN PERCENT AUTO 1 % (0-1); LYMPHOCYTES ABSOLUTE AUTO 1.47 K/mm3 (0.84-5.20); LYMPHOCYTES PERCENT AUTO 8 % (21-46); MONOCYTES ABSOLUTE AUTO 0.97 K/mm3 (0.16-1.47); MONOCYTES PERCENT AUTO 6 % (4-13); Mean Corpuscular HGB 28.7 pg (26.0-34.0); Mean Corpuscular HGB Conc 34.3 g/dL (31.5-36.5); Mean Corpuscular Volume 84 fL (80-100); Mean Platelet Volume 10.5 fL (9.1-12.4); NEUTROPHILS ABSOLUTE AUTO 14.82 K/mm3 (1.96-9.15); NEUTROPHILS PERCENT AUTO 85 % (41-73); Platelet Count 292 K/mm3 (150-400); RDW Coefficient Variation 13.7 % (11.7-14.2); RDW Standard Deviation 42.1 fL (35.1-46.3); Red Blood Cell Count 4.25 M/mm3 (4.30-5.90); White Blood Cell Count 17.41 K/mm3 (4.00-11.30)
[2024-10-30 06:51] LABS: Bun/Creatinine Ratio 22.1 (12.0-20.0); Creatinine, Blood 1.45 mg/dL (0.60-1.20); Potassium, Blood 3.7 mmol/L (3.5-5.5)
[2024-10-30] MEDS ORDERED: Dose Adjust by Pharmacy XX STA (06:51)
[2024-10-30] MEDS ORDERED: Nitroglycerin 0.4 MG SUBL ONE (07:39)
[2024-10-30] MEDS ORDERED: Nitroglycerin 0.4 MG SUBL SL ONE (07:50)
[2024-10-30] MEDS ORDERED: NS 1,000 ML IV ONE ×2 (07:51→07:54)
[2024-10-30] MEDS ORDERED: Heparin Sodium 1000 Units/ML 10ML MDV ONE (07:51)
[2024-10-30] MEDS ORDERED: Verapamil HCL 2.5 MG/ML 2ML Injection ONE (07:51)
[2024-10-30] MEDS ORDERED: NS 250 ML IV ONE (07:51)
[2024-10-30] MEDS ORDERED: FentaNYL Citrate 50 MCG/ML 2 ML Injection ONE (07:54)
[2024-10-30] MEDS ORDERED: Midazolam HCl 1MG / ML 2ML Vial ONE (07:54)
[2024-10-30] MEDS ORDERED: Insulin Glargine-Yfgn 100 Unit/mL 3 ML SYR SC SCH (08:00)
[2024-10-30] MEDS ORDERED: Ondansetron HCl 2 MG / ML 2ML Vial ONE (08:17)
[2024-10-30] MEDS ORDERED: Labetalol HCL 5 MG/ML 4ML Injection (Single Dose) ONE (08:33)
[2024-10-30] MEDS ORDERED: Nitroglycerin/D5W 250 ML IV ONE (08:48)
[2024-10-30] MEDS ORDERED: Furosemide 10 MG / ML 2ML Vial ONE (08:49)
[2024-10-30 08:51] LABS: Cholesterol 240 mg/dL (50-200); HDL Cholesterol 60 mg/dL (>39); LDL/HDL RATIO 2.5; Low Density Lipoprotein Chol 149 mg/dL (0-110); Triglycerides 154 mg/dL (30-160); Very Low Density Lipoprot Chol 31 mg/dL (6-32)
[2024-10-30] MEDS ORDERED: Cholecalciferol 1000 Unit Tablet (=25MCG) PO SCH (09:00)
[2024-10-30] MEDS ORDERED: Aspirin 81 MG Chew PO SCH (09:00)
[2024-10-30] MEDS ORDERED: Tamsulosin HCl 0.4 MG Cap PO SCH (09:00)
[2024-10-30] MEDS ORDERED: Atorvastatin 40 MG Tab PO SCH (09:00)
[2024-10-30] MEDS ORDERED: AmLODIPine Besylate 5 MG Tab PO SCH ×2 (09:00)
[2024-10-30] MEDS ORDERED: Gabapentin 300 MG Cap PO SCH (09:00)
[2024-10-30] MEDS ORDERED: Enoxaparin 40 MG/0.4 ML SYR SC SCH (09:00)
[2024-10-30] MEDS ORDERED: Clopidogrel Bisulfate 75 MG Tab PO SCH (09:00)
--- NOTE | 2024-10-30 09:30 | NUR ---
Summers of care: Received patient from labor utilization superintendent. Alert & oriented. In ST in the low 100s. Remains hypertensive. Orders for PO labetalol. Nitro gtt infusing per orders. No chest pain or SOB. On 8L oximask. Clear lung sounds but audible wheeze with exertion. R radial PCI site intact with no bleeding or hematoma; good perfusion to hand with palpable pulse. TR band intact. Discussed plan of care with Dr. Renae. Will continue to monitor.
[2024-10-30] MEDS ORDERED: Nitroglycerin/D5W 250 ML IV SCH (09:45)
[2024-10-30] MEDS ORDERED: Labetalol HCL 100 MG TAB PO SCH ×2 (09:45→21:00)
[2024-10-30] MEDS ORDERED: Labetalol HCL 5 MG/ML 20MLVIAL IV PRN (11:20)
--- NOTE | 2024-10-30 14:00 | NUR ---
MD update: Notified Dr. Renae that pt's SBP remains 160-170. He states this is acceptable. No further orders at this time. Will continue to monitor.
--- NOTE | 2024-10-30 17:54 | NUR ---
Shift summary: Alert, oriented & pleasant. IN NSR in 80-90s. Blood pressures have remained elevated - discussed with Dr. Renae most recently at roughly 1730 -- orders to increase nitro gtt to 50 mg/min... targeting SBP in 160s. Will continue to monitor. Weaned from 8L oximask to 2L NC, sats 92-94%, continues with clear lung sounds. Voiding with male purewick after 3 incontinent episodes so unable to obtain accurate output amount. Heart healthy diet. ACHS blood glucose checks. PIV x2 in place. Heparin gtt & nitro gtt infusing according to orders, see emar for details. Await bed at [facility]. Will continue with plan of care. Patient, nephew & niece updated.
--- NOTE | 2024-10-30 23:54 | NUR ---
NURSING NOTE: THIS PT HAS BEEN RESTING IN BED AND SLEEPING TONIGHT. STILL REMAINS ON HEPARIN AND NITRO GTT. NO COMPLAINTS OF CHEST PAIN THIS PM, JUST A SORE BACK THAT HAS BEEN CONTROLLED WITH TYLENOL. PT IS ON 4L CURRENTLY BECAUSE OF SLIGHT SLEEP APNEA BUT IS 2L WHEN AWAKE AND SATS 92% AND ABOVE. BLOOD PRESSURES AT START OF SHIFT WERE ELEVEATED WITH SYSTOLIC 180+ BUT HAS BEEN CONTROLLED WITH IV AND PO LABETALOL CURRENTLY 145/67. HR CURRENTLY BETWEEN 80-90 BPM IN NORMAL SINUS RHYTHM. CURRENTLY AWAITING A TRANSFER TO [facility].
[2024-10-31] VITALS: BP 145/67
[2024-10-31 00:06] VITALS: BP 145/67
[2024-10-31 00:25] VITALS: BP 145/67
[2024-10-31 00:30] VITALS: BP 133/67
[2024-10-31 00:57] VITALS: BP 133/67
[2024-10-31] MEDS ORDERED: LevoFLOXacin 750 MG/D5W 150ML 150 ML IV SCH (18:00)
== END 2024-10-31 01:00 | disposition short-term general hospital (02) | DRG 280 ==
LOC: ER 07:36 → ERHOLD 12:03 → PCU 12:03 → ICUE 12:03 → PCU 17:17 → ICUE 10-30 09:04
PROVIDERS: Emergency Medicine; ADMIT Hospitalist
PROC: 5A09357 Assistance with Respiratory Ventilation, Less than 24 Consecutive Hours, Continuous Positive Airway Pressure (ICD-10-PCS; principal; 2024-10-29)
PROC: 5A0935A Assistance with Respiratory Ventilation, Less than 24 Consecutive Hours, High Flow/Velocity Cannula (ICD-10-PCS; 2024-10-29)
PROC: B2111ZZ Fluoroscopy of Multiple Coronary Arteries using Low Osmolar Contrast (ICD-10-PCS; 2024-10-30)
PROC: 4A023N7 Measurement of Cardiac Sampling and Pressure, Left Heart, Percutaneous Approach (ICD-10-PCS; 2024-10-30)
DX: I21.4 Non-ST elevation (NSTEMI) myocardial infarction (principal); J96.01 Acute respiratory failure with hypoxia; J81.1 Chronic pulmonary edema; I10 Essential (primary) hypertension; Z96.651 Presence of right artificial knee joint; E11.42 Type 2 diabetes mellitus with diabetic polyneuropathy; E78.5 Hyperlipidemia, unspecified; F32.A Depression, unspecified; I25.10 Atherosclerotic heart disease of native coronary artery without angina pectoris; Z88.8 Allergy status to other drugs, medicaments and biological substances; Z79.899 Other long term (current) drug therapy; Z79.891 Long term (current) use of opiate analgesic; Z79.82 Long term (current) use of aspirin; Z79.811 Long term (current) use of aromatase inhibitors; Z99.89 Dependence on other enabling machines and devices; Z79.4 Long term (current) use of insulin; Z79.2 Long term (current) use of antibiotics; Z95.5 Presence of coronary angioplasty implant and graft; Z89.431 Acquired absence of right foot; Z87.891 Personal history of nicotine dependence
CPT/HCPCS: 0241U; 36415; 71045; 71260; 76937; 80048; 80061; 82803; 82947; 83036; 83605; 83735; 83880; 84484; 85025; 85520; 85610; 85730; 93005; 93010; 93306; 93458; 94660; 94664; 94762; 96374-59; 96375-59; 96376-59; 99152; 99153; 99285-25; A6590; A9270; C1769; C1887; C1894; J0360; J0456; J1644; J1815; J1940; J1956; J2250; J2405; J3010; J7030; J7050; Q9967

== ENCOUNTER 2024-12-13 07:45 | Observation (INO) | payer OTHER ==
[~2024-12-13] VITALS: Ht 172.7 cm; Wt 83.4 kg
[~2024-12-13 07:45] MED LIST changes: +NITR.4SL SL; +NITROGLYCERIN0.4 M3
[2024-12-13 08:42] LABS: Source, Urine Foley catheter
[2024-12-13 08:47] LABS: Appearance, Urine Hazy (Clear); Bilirubin, Urine Neg (Neg); Blood, Urine 5+ (Neg); Color, Urine Yellow (P-Yellow); Glucose Qualitative, Urine Neg (Neg); Ketones, Urine Neg (Neg); Leukocyte Esterase, Urine 2+ (Neg); Nitrite, Urine Neg (Neg); Protein, Urine 3+ (Neg); Urobilinogen, Urine NORM (Normal)
[2024-12-13 09:01] LABS: Hyaline Casts 0-2 /lpf (0-2); Squamous Epithelial Cells Rare /hpf (Few)
[2024-12-13 09:02] LABS: Bacteria Many /hpf; Red Blood Cells, Urine 50-100 /hpf (0-2)
[2024-12-13 09:36] LABS: BASOPHILS ABSOLUTE AUTO 0.06 K/mm3 (0.00-0.23); BASOPHILS PERCENT AUTO 1 % (0-2); EOSINOPHILS ABSOLUTE AUTO 0.39 K/mm3 (0.00-0.68); EOSINOPHILS PERCENT AUTO 5 % (0-6); Hematocrit 37.1 % (37.0-53.0); Hemoglobin 11.9 g/dL (13.5-17.5); IMMATURE GRAN ABSOLUTE AUTO 0.13 K/mm3 (0.00-0.10); IMMATURE GRAN PERCENT AUTO 2 % (0-1); LYMPHOCYTES ABSOLUTE AUTO 1.71 K/mm3 (0.84-5.20); LYMPHOCYTES PERCENT AUTO 21 % (21-46); MONOCYTES ABSOLUTE AUTO 0.42 K/mm3 (0.16-1.47); MONOCYTES PERCENT AUTO 5 % (4-13); Mean Corpuscular HGB 27.1 pg (26.0-34.0); Mean Corpuscular HGB Conc 32.1 g/dL (31.5-36.5); Mean Corpuscular Volume 85 fL (80-100); NEUTROPHILS ABSOLUTE AUTO 5.62 K/mm3 (1.96-9.15); NEUTROPHILS PERCENT AUTO 68 % (41-73); RDW Coefficient Variation 14.2 % (11.7-14.2); RDW Standard Deviation 43.7 fL (35.1-46.3); Red Blood Cell Count 4.39 M/mm3 (4.30-5.90); White Blood Cell Count 8.33 K/mm3 (4.00-11.30)
[2024-12-13 09:45] LABS: Mean Platelet Volume 9.8 fL (9.1-12.4); Platelet Count 256 K/mm3 (150-400)
[2024-12-13 09:53] LABS: Albumin, Blood 3.4 g/dL (3.4-5.0); Albumin/Globulin Ratio 0.8 (0.8-1.8); Bilirubin, Total 0.5 mg/dL (0.1-1.0); Bun/Creatinine Ratio 17.3 (12.0-20.0); Calcium, Blood 9.7 mg/dL (8.5-10.1); Creatinine, Blood 1.56 mg/dL (0.60-1.20); Globulin, Blood 4.5 g/dL (2.2-4.0); Potassium, Blood 5.7 mmol/L (3.5-5.5); Total Protein, Blood 7.9 g/dL (6.4-8.2)
[2024-12-13] MEDS ORDERED: Ciprofloxacin 500 MG Tab PO ONE (10:30)
[2024-12-13 11:02] LABS: Sodium, Urine, Random 92 mmol/L (20-110)
[2024-12-13 11:50] LABS: Osmolality, Urine 451 mos/kg (15-1400)
[2024-12-13] MEDS ORDERED: Acetaminophen 500 MG Tab PO PRN (13:20)
[2024-12-13] MEDS ORDERED: NS 500 ML IV SCH (13:20)
[2024-12-13 15:10] VITALS: BP 175/77
[2024-12-13] MEDS ORDERED: Insulin Human Lispro 100 Units/ML 3ML Syringe SC SCH (16:30)
[2024-12-13 19:09] VITALS: BP 123/50
[2024-12-13] MEDS ORDERED: Tamsulosin HCl 0.4 MG Cap PO SCH (21:00)
[2024-12-14] VITALS (10 sets, daily range): BP systolic 103–188; BP diastolic 54–88
[2024-12-14] MEDS ORDERED: HydrALAZINE HCl 20 MG / ML 1ML Vial IV ONE (05:35)
--- NOTE | 2024-12-14 05:35 | NUR ---
EXPLOSIVE OPERATOR GRENADE SUMMARY: PT ADMITTED FOR OBSTRUCTED MAGUIRE CATHETER / OBSTRUCTIVE JAMES. A&O X4. MAKES NEEDS KNOWN. MAGUIRE DRAINING TEA COLORED URINE AT BEGINNING OF SHIFT AND IS NOW DRAINING CLEAR YELLOW URINE TO GRAVITY. PT C/O BLADDER SPASMS AT BEGINNING OF SHIFT WHICH HAVE SUBSIDED. AT APPROX 0400 THIS NURSE NOTIFIED OF ELEVATED BP READING OF 181/83 AND C/O HEADACHE. THIS NURSE FOUND PT SITTING UP AT EDGE OF BED WRETCHING AND HAD EMESIS X1 WITH LESS THAN 50ML OUT. PT REPORTS HAVING HICCUPS AND THAT HE WILL THROW UP WHEN HE HAS HICCUPS. PRN CBG OBTAINED: 154. RECHECK BP AT 0535: 177/73. HEADACHE CONTINUES. NO FURTHER EPISODES OF EMESIS. LITHOGRAPHIC STRIPPER AND DR. MASSEY NOTIFIED. NEW ORDER OBTAINED FOR HYDRALAZINE 10MG IV X1.
--- NOTE | 2024-12-14 06:48 | NUR ---
PT CONTINUES TO HAVE EMESIS AND DRY HEAVING. DR. MASSEY NOTIFIED. NEW ORDER OBTAINED FOR ZOFFAN 4MG IV Q6H PRN NAUSEA VOMITING.
[2024-12-14] MEDS ORDERED: Ondansetron HCl 2 MG / ML 2ML Vial IV PRN (06:50)
[2024-12-14] MEDS ORDERED: Lisinopril 20 MG Tab PO SCH (09:00)
[2024-12-14] MEDS ORDERED: Gabapentin 300 MG Cap PO SCH (09:00)
[2024-12-14] MEDS ORDERED: Clopidogrel Bisulfate 75 MG Tab PO SCH (09:00)
[2024-12-14] MEDS ORDERED: Citalopram Hydrobromide 20 MG Tab PO SCH (09:00)
[2024-12-14] MEDS ORDERED: AmLODIPine Besylate 5 MG Tab PO SCH (09:00)
[2024-12-14] MEDS ORDERED: CloNIDine 0.3 MG Tab PO SCH (09:00)
[2024-12-14] MEDS ORDERED: Aspirin 81 MG TabEC PO SCH (09:00)
[2024-12-14] MEDS ORDERED: Ondansetron HCl 2 MG / ML 2ML Vial IV ONE (10:40)
--- NOTE | 2024-12-14 10:40 | NUR ---
NOTE DURING BEDSIDE SHIFT REPORT PT WAS VOMITTING, NIGHT RN NOTIFIED PT HAD HEADACHE THIS AM. PT GOT ZOFRAN AT 0727. MORNING MEDS GIVEN AT 0943. PT HAD ANOTHER EPISODE OF VOMITTING AT 1030. ZOFRAN NOT DUE YET. PT HEAD OF BED ELEVATED AND PT LEANING FORWARD. PT BLOOD PRESSURE ELEVATED AND PULSE. CALLED DR. SUN TO NOTIFY, DR. SUN ORDERED ADDITIONAL ONE TIME OF ZOFRAN. PT CALL LIGHT IN REACH.
[2024-12-14 11:02] LABS: Hematocrit 36.5 % (37.0-53.0); Hemoglobin 11.8 g/dL (13.5-17.5); Mean Corpuscular HGB 27.2 pg (26.0-34.0); Mean Corpuscular HGB Conc 32.3 g/dL (31.5-36.5); Mean Corpuscular Volume 84 fL (80-100); Mean Platelet Volume 9.8 fL (9.1-12.4); Platelet Count 271 K/mm3 (150-400); RDW Coefficient Variation 14.1 % (11.7-14.2); RDW Standard Deviation 43.3 fL (35.1-46.3); Red Blood Cell Count 4.34 M/mm3 (4.30-5.90); White Blood Cell Count 8.36 K/mm3 (4.00-11.30)
[2024-12-14] MEDS ORDERED: Labetalol HCL 5 MG/ML 4ML Injection (Single Dose) IV PRN (11:30)
[2024-12-14 11:47] LABS: Albumin, Blood 3.4 g/dL (3.4-5.0); Anion Gap 15 mmol/L (3-11); Blood Urea Nitrogen 21 mg/dL (8-24); Bun/Creatinine Ratio 18.3 (12.0-20.0); CO2, Blood 18 mmol/L (21-32); Calcium, Blood 9.5 mg/dL (8.5-10.1); Chloride, Blood 106 mmol/L (98-108); Creatinine, Blood 1.15 mg/dL (0.60-1.20); Glomerular Filtration Rate 67 (60-); Glucose, Blood 240 mg/dL (70-99); Magnesium, Blood 1.2 mg/dL (1.6-2.4); Phosphorus, Blood 3.3 mg/dL (2.5-4.9); Potassium, Blood 4.7 mmol/L (3.5-5.5); Sodium, Blood 134 mmol/L (136-145)
[2024-12-14] MEDS ORDERED: Magnesium Sulf 2 GM/Water 50ML 50 ML IV ONE (12:40)
[2024-12-14] MEDS ORDERED: NS 250 ML IV PRN (13:30)
--- NOTE | 2024-12-14 17:59 | NUR ---
SHIFT SUMMARY PT A&OX4. PT ADMITTED DUE TO OBSTRUCTED MAGUIRE. PT HAS MAGUIRE IN PLACE, DRAINING FREELY WITH NO DEPENDENT LOOPS. PT REPORTS NO PAIN OR CHEST DISCOMFORT. VSS. PT ON TELE, NSR AT 87 PER DATA REPORTING ANALYST. PT ACHS CBG ORDER, MANAGED PER CORRECTION SCALE. PROTHESIS IN ROOM FOR RBKA. PT CONT OF BM. PT HAD MAGNESIUM REPLENISHED. PT HAS NOT HAD NAUSEA OR VOMITTING SINCE AM. PT IN BED, BED IN LOWEST POSITION, CALL LIGHT IN REACH.
[2024-12-15 03:50] VITALS: BP 109/56
--- NOTE | 2024-12-15 04:53 | NUR ---
OB TECH SUMMARY: PT ADMITTED DUE TO OBSTRUCTED MAGUIRE. PT A&O X4. PT HAS MAGUIRE IN PLACE, DRAINING YELLOW URINE TO GRAVITY. PT DENIES PAIN OR CHEST DISCOMFORT. VSS. PT ON TELE, NSR AT 73 PER RN TELEPHONIC. PT HAS NOT HAD NAUSEA OR VOMITTING SINCE AM. PT IN BED, BED IN LOWEST POSITION, CALL LIGHT IN REACH. INDEPENDENT WITH BED MOBILITY. CARES ONGOING ORDERED.
[2024-12-15 07:26] VITALS: BP 139/71
[2024-12-15 08:21] LABS: Bun/Creatinine Ratio 19.1 (12.0-20.0); Calcium, Blood 9.2 mg/dL (8.5-10.1); Creatinine, Blood 1.31 mg/dL (0.60-1.20); Magnesium, Blood 1.9 mg/dL (1.6-2.4); Potassium, Blood 4.8 mmol/L (3.5-5.5)
[2024-12-15 11:54] VITALS: BP 121/73
[2024-12-15] MEDS ORDERED: TAMS.4ER PO (12:12)
--- NOTE | 2024-12-15 14:47 | NUR ---
DISCHARGE NOTE PT A&OX4. PT ADMITTED DUE TO OBSTRUCTED MAGUIRE. PT REPORTS NO PAIN/CHESTDISCOMFORT/SOB. DR. SUN ORDERED DISCHARGE. VSS. MAGNESIUM WNL TODAY. PT REPORTS NO NAUSEA AND TOLERATING MEALS. PT ACHS, RECEIVED COVERAGE. PT HAS R BKA. PT LEFT WITH PERSONAL BELONGINGS AND PROSTHESIS. IV AND TELE D/C. 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 MEDS FAXED TO PREFERRED PHARM. WENT OVER DISCHARGE INSTRUCTIONS WITH PT. PT REPORTS WILL FOLLOW UP WITH PCP. PT ESCORTED BY WHEELCHAIR BY GLORIA.
== END 2024-12-15 14:45 | disposition home health service (06) ==
LOC: ER 07:45 → MEDS 07:46 → ENPENDDIS 12-15 12:58 → MEDS 12-15 14:45
PROVIDERS: Student in an Organized Health Care Education/Training Program; ADMIT Internal Medicine
DX: T83.098A Other mechanical complication of other urinary catheter, initial encounter (principal); E83.42 Hypomagnesemia; E11.22 Type 2 diabetes mellitus with diabetic chronic kidney disease; I12.9 Hypertensive chronic kidney disease with stage 1 through stage 4 chronic kidney disease, or unspecified chronic kidney disease; N18.30 Chronic kidney disease, stage 3 unspecified; N17.9 Acute kidney failure, unspecified; I25.10 Atherosclerotic heart disease of native coronary artery without angina pectoris; R33.9 Retention of urine, unspecified; J96.01 Acute respiratory failure with hypoxia; I21.4 Non-ST elevation (NSTEMI) myocardial infarction; E11.40 Type 2 diabetes mellitus with diabetic neuropathy, unspecified; E78.5 Hyperlipidemia, unspecified; Z79.82 Long term (current) use of aspirin; Z79.899 Other long term (current) drug therapy; Z79.4 Long term (current) use of insulin; Z87.891 Personal history of nicotine dependence; Z88.8 Allergy status to other drugs, medicaments and biological substances; Z89.511 Acquired absence of right leg below knee; Z95.1 Presence of aortocoronary bypass graft; Y84.8 Other medical procedures as the cause of abnormal reaction of the patient, or of later complication, without mention of misadventure at the time of the procedure
CPT/HCPCS: 36415; 80048; 80053; 80069; 81001; 82947; 83735; 83935; 84300; 85025; 85027; 96374; 96375; 96376; 99284-25; A9270; G0378; J0360; J2405; J3475; J7040; J7050

== ENCOUNTER 2025-03-01 20:21 | Inpatient (IN) | payer OTHER ==
[~2025-03-01] VITALS: Ht 177.8 cm; Wt 84.4 kg
[2025-03-01 20:34] LABS: pH Blood Venous 7.34 (7.34-7.37)
[2025-03-01 21:15] LABS: BASOPHILS ABSOLUTE AUTO 0.02 K/mm3 (0.00-0.23); BASOPHILS PERCENT AUTO 0 % (0-2); EOSINOPHILS ABSOLUTE AUTO 0.00 K/mm3 (0.00-0.68); EOSINOPHILS PERCENT AUTO 0 % (0-6); Hematocrit 39.2 % (37.0-53.0); Hemoglobin 13.3 g/dL (13.5-17.5); IMMATURE GRAN ABSOLUTE AUTO 0.13 K/mm3 (0.00-0.10); IMMATURE GRAN PERCENT AUTO 1 % (0-1); LYMPHOCYTES ABSOLUTE AUTO 0.79 K/mm3 (0.84-5.20); LYMPHOCYTES PERCENT AUTO 4 % (21-46); MONOCYTES ABSOLUTE AUTO 1.24 K/mm3 (0.16-1.47); MONOCYTES PERCENT AUTO 7 % (4-13); Mean Corpuscular HGB Conc 33.9 g/dL (31.5-36.5); Mean Corpuscular Volume 77 fL (80-100); NEUTROPHILS ABSOLUTE AUTO 16.26 K/mm3 (1.96-9.15); NEUTROPHILS PERCENT AUTO 88 % (41-73); NRBC ABSOLUTE 0.00 K/mm3 (0.00-0.02); NRBC Auto 0.0 /100 WBC (0.0-0.2); Platelet Count 307 K/mm3 (150-400); RDW Coefficient Variation 16.5 % (11.7-14.2); RDW Standard Deviation 45.2 fL (35.1-46.3)
[2025-03-01 21:22] LABS: Prothrombin Time Results 12.3 Sec (9.7-11.5)
[2025-03-01 21:38] LABS: Ethanol (Alcohol), Blood, Med <3 mg/dL; Magnesium, Blood 1.4 mg/dL (1.6-2.4); Thyroid Stimulating Hormone 4.310 uIU/mL (0.360-4.800)
[2025-03-01 21:39] LABS: Alanine Aminotransfer (ALT/SGP 39 U/L (12-78); Albumin, Blood 3.6 g/dL (3.4-5.0); Albumin/Globulin Ratio 0.8 (0.8-1.8); Anion Gap 10 mmol/L (3-11); Aspartate Aminotrans (AST/SGOT 75 U/L (12-37); Bilirubin, Total 0.8 mg/dL (0.1-1.0); Blood Urea Nitrogen 40 mg/dL (8-24); CO2, Blood 26 mmol/L (21-32); Calcium, Blood 8.9 mg/dL (8.5-10.1); Chloride, Blood 107 mmol/L (98-108); Creatinine, Blood 1.12 mg/dL (0.60-1.20); Globulin, Blood 4.4 g/dL (2.2-4.0); Glucose, Blood 268 mg/dL (70-99); Potassium, Blood 3.7 mmol/L (3.5-5.5); Sodium, Blood 139 mmol/L (136-145); Total Protein, Blood 8.0 g/dL (6.4-8.2)
[2025-03-01] MEDS ORDERED: Vancomycin (Pharmacy Consult) IV PRN (21:45)
[2025-03-01] MEDS ORDERED: NS 1,000 ML IV SCH (21:45)
[2025-03-01] MEDS ORDERED: NS 500 ML IV SCH (21:45)
[2025-03-01] MEDS ORDERED: LevoFLOXacin 750 MG/D5W 150ML 150 ML IV ONE (21:45)
[2025-03-01] MEDS ORDERED: FentaNYL Citrate 50 MCG/ML 2 ML Injection IV SCH (21:55)
[2025-03-01] MEDS ORDERED: FentaNYL Citrate 50 MCG/ML 2 ML Injection IV ONE (22:00)
[2025-03-01 22:07] LABS: Source, Urine Clean Catch
[2025-03-01 22:09] LABS: Bilirubin, Urine Neg (Neg); Glucose Qualitative, Urine 3+ (Neg); Ketones, Urine 2+ (Neg); Leukocyte Esterase, Urine 3+ (Neg); Protein, Urine 4+ (Neg); Specific Gravity, Urine 1.015 (1.003-1.022); Urobilinogen, Urine NORM (Normal)
[2025-03-01 22:18] LABS: Color, Urine Yellow (P-Yellow)
[2025-03-01 22:20] LABS: White Blood Cells, Urine TNTC /hpf (0-5)
[2025-03-01 22:38] LABS: U Amphetamine Screen Not Detected; U Methamphetamine Screen Not Detected
[2025-03-01 22:39] LABS: U Barbituate Screen Not Detected; U Benzodiazapine Screen Not Detected; U Buprenorphine Screen Not Detected; U Cannabinoids Screen Not Detected; U Cocaine Screen Not Detected; U Methadone Screen Not Detected; U Opiates Screen Not Detected; U Oxycodone Screen Not Detected; U Phencyclidine Screen Not Detected
[2025-03-01] MEDS ORDERED: Ipratropium/Albuterol SulF 2.5-0.5MG/3 ML Amp INH PRN (22:55)
[2025-03-01] MEDS ORDERED: Vancomycin (Pharmacy Consult) IV SCH (23:00)
[2025-03-01] MEDS ORDERED: FentaNYL Citrate 50 MCG/ML 2 ML Injection IV PRN (23:05)
[2025-03-01] MEDS ORDERED: Mag Sulfate 1 GM/D5% 100ML 100 ML IV STA (23:09)
[2025-03-02] VITALS (99 sets, daily range): BP systolic 137–189; BP diastolic 76–99
[2025-03-02] MEDS ORDERED: Insulin Regular 100 UNIT/ML 10ML Vial SC SCH
--- NOTE | 2025-03-02 03:28 | NUR ---
PT ARRIVAL: PT ARRIVED TO ICU AT (0050) FROM THE ER. PT WAS TRANSPORT VIA GURNEY AND MOVED TO HOSPITAL VIA SHEET DRAW. PT IS INTUBATED AND SEDATED, ON PROPOFOL GTT PER EMR ORDERS. PT IS RESPONSIVE TO PAINFUL STIMULI BUT NOT FOLLOWING COMMANDS AT THIS TIME. LUNG SOUNDS ARE CLEAR AND EQUAL, VENT SETTINGS- ACVC 16/450/5/55% SPO2 >95%. SINUS RYTH WITH SBP: 160-180'S MAP >65 HR: 90'S. IV: PERIPHERAL IVS IN RAC AND LAC. IO IN L LEG. SKIN: PT HAS SCATTERED ABRASIONS, BRUISING, AND SKIN TEARS THAT HAVE BEEN COVERED WITH DRESSING. PRESSSURE INJURY NOTED ON R HIP THAT WAS COVERED WITH MEPLIEX, DR. TAO NOTIFIED OF PRESSURE INJURY. PICTURE OF INJURIES WERE TAKEN AND PLACED IN CHART. MAGUIRE CATHETER IN PLACE AND DRAINING TO GRAVITY. NG TUBE IN PLACE AND CLAMPED. LINES, CORDS, AND TUBES WERE PLACED OUT OF REACH. CALL LIGHT PLACED WITHIN REACH.
[2025-03-02 03:34] LABS: BASOPHILS ABSOLUTE AUTO 0.02 K/mm3 (0.00-0.23); BASOPHILS PERCENT AUTO 0 % (0-2); EOSINOPHILS ABSOLUTE AUTO 0.02 K/mm3 (0.00-0.68); EOSINOPHILS PERCENT AUTO 0 % (0-6); Hematocrit 41.0 % (37.0-53.0); Hemoglobin 13.6 g/dL (13.5-17.5); IMMATURE GRAN ABSOLUTE AUTO 0.12 K/mm3 (0.00-0.10); IMMATURE GRAN PERCENT AUTO 1 % (0-1); LYMPHOCYTES ABSOLUTE AUTO 1.18 K/mm3 (0.84-5.20); LYMPHOCYTES PERCENT AUTO 7 % (21-46); MONOCYTES ABSOLUTE AUTO 0.94 K/mm3 (0.16-1.47); MONOCYTES PERCENT AUTO 5 % (4-13); Mean Corpuscular HGB Conc 33.2 g/dL (31.5-36.5); Mean Corpuscular Volume 78 fL (80-100); NEUTROPHILS ABSOLUTE AUTO 14.98 K/mm3 (1.96-9.15); NEUTROPHILS PERCENT AUTO 87 % (41-73); NRBC ABSOLUTE 0.00 K/mm3 (0.00-0.02); NRBC Auto 0.0 /100 WBC (0.0-0.2); Platelet Count 272 K/mm3 (150-400); RDW Coefficient Variation 16.6 % (11.7-14.2); RDW Standard Deviation 45.7 fL (35.1-46.3)
[2025-03-02 04:17] LABS: Alanine Aminotransfer (ALT/SGP 34.0 U/L (12-78); Albumin, Blood 3.1 g/dL (3.4-5.0); Albumin/Globulin Ratio 0.8 (0.8-1.8); Anion Gap 11.0 mmol/L (3-11); Aspartate Aminotrans (AST/SGOT 60.0 U/L (12-37); Bilirubin, Total 1.0 mg/dL (0.1-1.0); Blood Urea Nitrogen 37.0 mg/dL (8-24); CO2, Blood 22.0 mmol/L (21-32); Calcium, Blood 8.7 mg/dL (8.5-10.1); Chloride, Blood 109.0 mmol/L (98-108); Creatinine, Blood 1.01 mg/dL (0.60-1.20); Globulin, Blood 4.0 g/dL (2.2-4.0); Glucose, Blood 218.0 mg/dL (70-99); Magnesium, Blood 1.8 mg/dL (1.6-2.4); Potassium, Blood 3.3 mmol/L (3.5-5.5); Sodium, Blood 139.0 mmol/L (136-145); Total Protein, Blood 7.1 g/dL (6.4-8.2)
[2025-03-02] MEDS ORDERED: Pantoprazole Sodium 40 MG Injection IV SCH (06:00)
[2025-03-02] MEDS ORDERED: MetroNIDAZOLE 500MG/NS 100 ml 100 ML IV SCH (06:06)
--- NOTE | 2025-03-02 06:37 | NUR ---
SHIFT SUMMARY: PT IS DOING WELL, THEY ARE INTUBATED AND SEDATED WITH PROPOFOL GTT PER EMR ORDERS IN BED. WHEN PROPOFOL IS TITRATED DOWN PT WILL BECOME RESPONSIVE TO VOICE, THEY WILL ATTEMPT TO TURN HEAD AND MOVE THE L SIDE AND WILL START CHEWING ON ET TUBE, BUT STILL UNABLE TO FOLLOW COMMANDS. SPO2 >95% ON VENT: ACVC 16/450/5/55%. SINUS RYTHM WITH SBP: 160-180'S MAP >65 HR: 90-100'S. IV: PERIPHERAL IN RAC AND LAC. IO WAS REMOVED. NG TUBE WAS REMOVED AND REPLACED WITH OG TUBE. OG TUBE IS 65 @ NARES. MAGUIRE CATHETER IN PLACE AND DRAINING TO GRAVITY. LINES, CORDS, AND TUBES PLACED OUT OF REACH. CALL LIGHT PLACED WITHIN REACH.
[2025-03-02] MEDS ORDERED: Cetylpyridinium Chloride 1 EA MISC MT SCH (08:00)
[2025-03-02] MEDS ORDERED: Lactobacil 2-S.Thermo-Bifido 1 1 Cap PO SCH (09:00)
[2025-03-02] MEDS ORDERED: Enoxaparin 40 MG/0.4 ML SYR SC SCH (09:00)
--- NOTE | 2025-03-02 09:11 | NUR ---
ASSUMPTION OF CARE ASSUMED CARE OF PATIENT AT APPROXIMATELY 0700. PT RESTING IN BED, INTUBATED AND SEDATED. PROPOFOL INFUSING AT 45MCG/KG/MIN AT START OF SHIFT, TITRATED DOWN TO 35MCG/KG/MIN, THEN TITRATED OFF PER DR. FERRIS AT THE BEDSIDE FOR SBT/SAT. PT OPENING EYES, MOVES HEAD, SQUEEZES HAND ON THE LEFT SIDE AND MOVES LEFT LEG. PT DOES NOT SQUEEZE WHEN ASKED ON THE RIGHT SIDE, DOES NOT MOVE RIGHT LEG. HR 100-120'S SINUS, PT HYPERTENSIVE SBP 160-180'S, PROVIDER AWARE. PT INTUBATED, VENT SETTINGS AC/VC 16/450/5/40%, SWITCHED TO SPONTANEOUS 10/5 40%, OXYGEN SATURATION >95%, TIDAL VOLUMES ROUGHLY 350-470. OG TUBE IN PLACE CLAMPED. TEMP MAGUIRE IN PLACE PATENT DRAINING YELLOW URINE TO GRAVITY. PIV IN PLACE TO RAC AND LAC. PT HAS MULTIPLE WOUNDS SCATTERED THROUGHOUT HIS BODY, MULTIPLE SKIN TEARS, BRUISING AND EXCORIATIONS NOTED, WOUNDS DRESSED, PICTURES IN CHART. BED IN LOWEST POSITION, CARE CONTINUES.
--- NOTE | 2025-03-02 11:06 | NUR ---
PT EXTUBATION PT EXTUBATED AT APPROXIMATELY 1105. PT EXTUBATED TO 2LPM VIA NC. NT SUCTION PERFORMED BY RT, WITH COPIOUS AMOUNT OF THICK BROWN/WHITE PINK TINGED SECRETIONS. PT OPENS EYES SPONTANEOUSLY. MOVES RIGHT SIDE OF BODY, NO MOVEMENT NOTED TO RIGHT ARM/LEG. HR 120'S SINUS, SBP 170'S. PT OXYGEN SATURATION 96% ON 2LPM VIA NC. BED IN LOWEST POSITION, CARE CONTINUES.
[2025-03-02] MEDS ORDERED: Hydrogen Peroxide 1.5 % Solution MT SCH (12:00)
--- NOTE | 2025-03-02 12:01 | NUR ---
PT UPDATE PT TACHYPNEIC WITH RR IN THE 30'S, OXYGEN SATURATION 93-96% ON 2LPM VIA NC. RT TO BEDSIDE, PT PLACED ON BIPAP 16/8 25%, OXYGEN SATURATION >95%. CARE CONTINUES.
[2025-03-02 12:45] LABS: Anion Gap 13.0 mmol/L (3-11); Blood Urea Nitrogen 36.0 mg/dL (8-24); CO2, Blood 22.0 mmol/L (21-32); Calcium, Blood 8.9 mg/dL (8.5-10.1); Chloride, Blood 110.0 mmol/L (98-108); Creatinine, Blood 1.08 mg/dL (0.60-1.20); Glucose, Blood 247.0 mg/dL (70-99); Magnesium, Blood 1.8 mg/dL (1.6-2.4); Phosphorus, Blood 2.9 mg/dL (2.5-4.9); Potassium, Blood 3.8 mmol/L (3.5-5.5); Sodium, Blood 141.0 mmol/L (136-145)
[2025-03-02] MEDS ORDERED: NS 250 ML IV PRN (13:00)
[2025-03-02] MEDS ORDERED: METF500C PO (13:30)
[2025-03-02] MEDS ORDERED: ZINC OXIDE/PETROLATUM, YELLOW 1 APPLIC/71 GM PASTE TOP PRN (15:30)
--- NOTE | 2025-03-02 17:00 | NUR ---
PT UPDATE PT WITH INCREASED RR, UP INTO THE 30'S, INCREASED WORK OF BREATHING. PT CONTINUES TO REMOVE BIPAP MASK, NASAL CANNULA AND OXYMASK DESPITE VERBAL REDIRECTION. PRECEDEX INFUSING AND TITRATED UP FOR COMPLIANCE WITH BIPAP, CURRENTLY INFUSING AT 0.5MCG/KG/HR. PT HAS HAD INCREASED THICK SECRETIONS. NT SUCTION PERFORMED X3 WITH COPIOUS AMOUNTS OF THICK BROWN/WHITE SECRETIONS. ORAL SUCTIONING PERFORMED, NO GAG PRESENT. CALL PLACED TO DR. FERRIS TO INFORM HIM OF PATIENT CONDITION. INSTRUCTED TO CONTINUE WITH BIPAP AND PRECEDEX AT THIS TIME. WITH PRECEDEX INCREASED TO 0.5MCG/KG/HR PT RESTING IN BED, RR IN THE HIGH 20'S, PT TOLERATING BIPAP MASK AT THIS TIME. BED IN LOWEST POSITION, CARE CONTINUES.
--- NOTE | 2025-03-02 17:49 | NUR ---
SHIFT SUMMARY PT CONTINUES TO REST IN BED, OPENS EYES SPONTANEOUSLY, FOLLOWS DIRECTION SUCH SQUEEZING HANDS ON THE LEFT SIDE AND WIGGLING TOES. NO MOVEMENT NOTED TO RIGHT ARM OR LEG THIS SHIFT. NO VERBAL COMMUNICATION FROM PATIENT, HE DOES NOT ANSWER QUESTIONS WHEN ASKED. PT PULLING AT BIPAP MASK/OXYMASK AND NASAL CANNULA DESPITE MULTIPLE ATTEMPTS AT VERBAL REDIRECTION. PRECEDEX INFUSING AT 0.5MCG/KG/HR. HR 100-110'S SINUS, PT HYPERTENSIVE SBP 160-190'S, PROVIDER AWARE. PT CURRENTLY ON BIPAP 16/8 25%, OXYGEN SATURATION >95%. PT HAS HAD COPIOUS AMOUNTS OF THICK SECRETIONS REQUIRING NT SUCTION X3 THIS SHIFT. PT DOES NOT HAVE GAG REFLEX, COUGHS OCASIONALLY WHEN INSTRUCTED. DR. FERRIS AWARE. RR 20-40'S, WITH INCREASED WOB. BOWEL TONES HYPERACTIVE. TEMP MAGUIRE IN PLACE PATENT DRAINING YELLOW URINE TO GRAVITY. TMAX OF 100.7, FAN IN PLACE. PIV IN PLACE TO RAC AND LAC. BED IN LOWEST POSITION, CARE CONTINUES.
[2025-03-02] MEDS ORDERED: LevoFLOXacin 750 MG/D5W 150ML 150 ML IV SCH (22:00)
[2025-03-03] VITALS (63 sets, daily range): BP systolic 119–192; BP diastolic 71–105
[2025-03-03 03:40] LABS: BASOPHILS ABSOLUTE AUTO 0.04 K/mm3 (0.00-0.23); BASOPHILS PERCENT AUTO 0 % (0-2); EOSINOPHILS ABSOLUTE AUTO 0.02 K/mm3 (0.00-0.68); EOSINOPHILS PERCENT AUTO 0 % (0-6); Hematocrit 38.4 % (37.0-53.0); Hemoglobin 12.6 g/dL (13.5-17.5); IMMATURE GRAN ABSOLUTE AUTO 0.07 K/mm3 (0.00-0.10); IMMATURE GRAN PERCENT AUTO 1 % (0-1); LYMPHOCYTES ABSOLUTE AUTO 1.61 K/mm3 (0.84-5.20); LYMPHOCYTES PERCENT AUTO 13 % (21-46); MONOCYTES ABSOLUTE AUTO 0.63 K/mm3 (0.16-1.47); MONOCYTES PERCENT AUTO 5 % (4-13); Mean Corpuscular HGB Conc 32.8 g/dL (31.5-36.5); Mean Corpuscular Volume 79 fL (80-100); NEUTROPHILS ABSOLUTE AUTO 10.02 K/mm3 (1.96-9.15); NEUTROPHILS PERCENT AUTO 81 % (41-73); NRBC ABSOLUTE 0.00 K/mm3 (0.00-0.02); NRBC Auto 0.0 /100 WBC (0.0-0.2); Platelet Count 252 K/mm3 (150-400); RDW Coefficient Variation 16.9 % (11.7-14.2); RDW Standard Deviation 47.5 fL (35.1-46.3)
[2025-03-03 03:58] LABS: Alanine Aminotransfer (ALT/SGP 27.0 U/L (12-78); Albumin, Blood 2.7 g/dL (3.4-5.0); Albumin/Globulin Ratio 0.7 (0.8-1.8); Anion Gap 7.0 mmol/L (3-11); Aspartate Aminotrans (AST/SGOT 29.0 U/L (12-37); Bilirubin, Total 0.7 mg/dL (0.1-1.0); Blood Urea Nitrogen 36.0 mg/dL (8-24); CO2, Blood 26.0 mmol/L (21-32); Calcium, Blood 8.6 mg/dL (8.5-10.1); Chloride, Blood 114.0 mmol/L (98-108); Creatinine, Blood 1.06 mg/dL (0.60-1.20); Globulin, Blood 3.9 g/dL (2.2-4.0); Glucose, Blood 189.0 mg/dL (70-99); Potassium, Blood 3.5 mmol/L (3.5-5.5); Sodium, Blood 143.0 mmol/L (136-145); Total Protein, Blood 6.6 g/dL (6.4-8.2)
--- NOTE | 2025-03-03 04:51 | NUR ---
SHIFT SUMMARY PT REMAINED SEDATED WITH PRECEDEX FOR BIPAP COMPLIANCE T/O THE NIGHT. RESPONDS TO VERBAL STIMULI, NOT FOLLOWING COMMANDS, NOT ANSWERING QUESTIONS. PT HAS NOT MOVED R ARM BUT HAS INCREASINGLY MOVED R LEG THIS SHIFT. REMAINDS ON BIPAP SETTINGS OF 16/8 25% WITH SATS > 95%. PT DID NOT NEED NT SUCTIONING THIS SHIFT. HR WAS IN 100'S MOST OF SHIFT, IS NOW 80-90'S. SBP HAS DECRFEASED FROM 160-170'S TO 120-130'S. SKIN HAS TEARS AND ABRAISIONS WITH DRESSINGS ON THEM. TEMP MAGUIRE IN PLACE AND DRAINING YELLOW URINE WITH SEDEMENT NOTED. NO BM THIS SHIFT. TMAX OF 100.8, NOW 98.9F WITH COOL CLOTH AND FAN. THIS RN REMAINED A 1:1 WITH PT FOR ENTIRE SHIFT. NO ACUTE EVENTS.
[2025-03-03] MEDS ORDERED: Magnesium Sulf 2 GM/Water 50ML 50 ML IV ONE (07:40)
[2025-03-03] MEDS ORDERED: Cholecalciferol 1000 Unit Tablet (=25MCG) PO SCH (09:00)
[2025-03-03 11:40] LABS: Vancomycin, Trough 15.7 ug/mL (5.0-10.0)
[2025-03-03 12:40] LABS: Anion Gap 8.0 mmol/L (3-11); Blood Urea Nitrogen 37.0 mg/dL (8-24); CO2, Blood 26.0 mmol/L (21-32); Calcium, Blood 8.7 mg/dL (8.5-10.1); Chloride, Blood 113.0 mmol/L (98-108); Creatinine, Blood 1.02 mg/dL (0.60-1.20); Glucose, Blood 202.0 mg/dL (70-99); Magnesium, Blood 2.6 mg/dL (1.6-2.4); Potassium, Blood 3.4 mmol/L (3.5-5.5); Sodium, Blood 144.0 mmol/L (136-145)
[2025-03-03] MEDS ORDERED: HydrALAZINE HCl 20 MG / ML 1ML Vial IV PRN (14:25)
--- NOTE | 2025-03-03 18:28 | NUR ---
END OF SHIFT SUMMARY MRI COMPLETED TODAY. PT SEDATED WITH PRECEDEX INFUSING AND STOPPED EARLY THIS AM. HE IS NOT VERBAL BUT FOLLOWING SOME DIRECTIONS; OCCATIONALLY ANSWERS Y/N QUESTIONS; NOT MOVING RT ARM AT ALL AND FLACCID. WAS ON BIPAP AT SHIFT CHANGE; BIPAP REMOVED EARLY IN SHIFT; SPO2 >92% ON RA; WEAK COUGH NOTED WITH SMALL AMOUNT OF SECREATIONS. AFEBRILE. HR 90-115. BP STABLE. FERNANDO SÁNCHEZ COMPLETED TODAY; HEBER NPO AT THIS TIME. MAGUIRE CHANGED DURING BEFORE MRI R/T TEMP PROBE BEING A POSSIBLE ISSUE; ADAQUATE URINE OUTPUT. DRESSINGS CHANGED TO LT KNEE, LT FORARM, RT FORARM, AND RT HIP. POWERGLIDE PLACED THIS SHIFT. WILL REPORT TO PM RN WHEN AVAILABLE.
[2025-03-03 23:49] LABS: Anion Gap 11.0 mmol/L (3-11); Blood Urea Nitrogen 34.0 mg/dL (8-24); CO2, Blood 24.0 mmol/L (21-32); Calcium, Blood 8.7 mg/dL (8.5-10.1); Chloride, Blood 113.0 mmol/L (98-108); Creatinine, Blood 1.01 mg/dL (0.60-1.20); Glucose, Blood 230.0 mg/dL (70-99); Potassium, Blood 3.7 mmol/L (3.5-5.5); Sodium, Blood 144.0 mmol/L (136-145)
[2025-03-04] VITALS (55 sets, daily range): BP systolic 138–189; BP diastolic 74–108
[2025-03-04 03:14] LABS: MYOGLOBIN SERUM 1036 ng/mL (<=72)
[2025-03-04 03:41] LABS: BASOPHILS ABSOLUTE AUTO 0.04 K/mm3 (0.00-0.23); BASOPHILS PERCENT AUTO 0 % (0-2); EOSINOPHILS ABSOLUTE AUTO 0.00 K/mm3 (0.00-0.68); EOSINOPHILS PERCENT AUTO 0 % (0-6); Hematocrit 37.0 % (37.0-53.0); Hemoglobin 12.2 g/dL (13.5-17.5); IMMATURE GRAN ABSOLUTE AUTO 0.22 K/mm3 (0.00-0.10); IMMATURE GRAN PERCENT AUTO 2 % (0-1); LYMPHOCYTES ABSOLUTE AUTO 1.41 K/mm3 (0.84-5.20); LYMPHOCYTES PERCENT AUTO 11 % (21-46); MONOCYTES ABSOLUTE AUTO 0.85 K/mm3 (0.16-1.47); MONOCYTES PERCENT AUTO 7 % (4-13); Mean Corpuscular HGB Conc 33.0 g/dL (31.5-36.5); Mean Corpuscular Volume 79 fL (80-100); NEUTROPHILS ABSOLUTE AUTO 10.63 K/mm3 (1.96-9.15); NEUTROPHILS PERCENT AUTO 81 % (41-73); NRBC ABSOLUTE 0.00 K/mm3 (0.00-0.02); NRBC Auto 0.0 /100 WBC (0.0-0.2); Platelet Count 274 K/mm3 (150-400); RDW Coefficient Variation 17.0 % (11.7-14.2); RDW Standard Deviation 48.5 fL (35.1-46.3)
[2025-03-04 04:03] LABS: Alanine Aminotransfer (ALT/SGP 26.0 U/L (12-78); Albumin, Blood 2.5 g/dL (3.4-5.0); Albumin/Globulin Ratio 0.6 (0.8-1.8); Anion Gap 8.0 mmol/L (3-11); Aspartate Aminotrans (AST/SGOT 24.0 U/L (12-37); Bilirubin, Total 0.7 mg/dL (0.1-1.0); Blood Urea Nitrogen 35.0 mg/dL (8-24); CO2, Blood 25.0 mmol/L (21-32); Calcium, Blood 8.3 mg/dL (8.5-10.1); Chloride, Blood 115.0 mmol/L (98-108); Creatinine, Blood 0.98 mg/dL (0.60-1.20); Globulin, Blood 3.9 g/dL (2.2-4.0); Glucose, Blood 209.0 mg/dL (70-99); Magnesium, Blood 1.9 mg/dL (1.6-2.4); Phosphorus, Blood 2.0 mg/dL (2.5-4.9); Potassium, Blood 3.5 mmol/L (3.5-5.5); Sodium, Blood 144.0 mmol/L (136-145); Total Protein, Blood 6.4 g/dL (6.4-8.2)
--- NOTE | 2025-03-04 05:35 | NUR ---
MD NOTIFICATION DR TAO UPDATED ON AM LAB RESULTS, K+3.5, PHOS 2.0. ORDER PENDING.
[2025-03-04] MEDS ORDERED: Potassium Phosphate Dibasic 20 MM in Dextrose 5% 500 ML IV STA (05:53)
--- NOTE | 2025-03-04 06:42 | NUR ---
SHIFT SUMMARY PT REMAINS NONVERBAL, OCC FOLLOWS SIMPLE COMMANDS APPROP, RESTLESS AT TIMES. ON/OFF BIPAP DURING NIGHT WITH PRECEDEX GTT. CURRENTLY ON ROOM AIR, TITRATING PRECEDEX GTT DOWN, CURRENTLY AT 0.4 MCG/KG/HR, AWAKE, BUT CALM AND COOPERATIVE AT THIS TIME. SBP >180 LAST NIGHT REQUIRING A PRN DOSE OF HYDRALAZINE. VSS AT THIS TIME. WILL UPDATE DAY RN WITH ALL OUTSTANDING ISSUES AND PROBLEMS TO DATE.
[2025-03-04] MEDS ORDERED: Insulin Regular 100 UNIT/ML 10ML Vial SC SCH (18:00)
--- NOTE | 2025-03-04 18:37 | NUR ---
PALLIATIVE CARE VISIT: 1030 MET WITH PT IN HIS ROOM TO DISCUSS POLST AT DR. VELEZ'S REQUEST. PT WAS UNABLE TO SPEAK BUT HE WAS ABLE TO LIFT HIS LEFT HAND FOR YES ANSWERS AND NOD HEAD. PROVIDED COPY OF POLST TO PT AND EDUCATED ON DIFFERENT CHOICES. PT POINTED TO DNR AND RAISED HIS LEFT ARM WHEN ASKED IF THAT WAS HIS CHOICE. PT ALSO POINTED TO SELECTIVE TREATMENT IN SECTION B WHEN ASKED IF HE WOULD WANT SELECTIVE TREATMENT VS FULL TREATMENT AFTER EDUCATING HIM ON HIS CHOICES. POLST COMPLETED. UPDATED FAMILY WHEN THEY ARRIVED.
--- NOTE | 2025-03-04 19:15 | NUR ---
Summary. Pt off precedex, remains difficult to communicate with. On RA. Pt remains strict NPO, dobhoff placed for meds/tube feeds. Trickle feed started at 10ml/hr until dietary assesses pt. Sitter at bedside this shift for lines/tubing, pt calm and cooperative this shift. Able to shift own weight in bed with minimal assistance. No acute events this shift, see chart for details.
--- NOTE | 2025-03-04 21:10 | NUR ---
DOBHOFF NGT PULLED BY PT, NEW DOBHOFF INSERTED, PCXR PENDING.
--- NOTE | 2025-03-04 22:00 | NUR ---
DOBHOFF DOBHOFF PCXR CONFIRMED BY MARCIN (HOSPITALIST), OKRAJENDRA'D TO USE.
[2025-03-05] VITALS (23 sets, daily range): BP systolic 132–175; BP diastolic 70–99
[2025-03-05 03:40] LABS: BASOPHILS ABSOLUTE AUTO 0.07 K/mm3 (0.00-0.23); BASOPHILS PERCENT AUTO 1 % (0-2); EOSINOPHILS ABSOLUTE AUTO 0.00 K/mm3 (0.00-0.68); EOSINOPHILS PERCENT AUTO 0 % (0-6); Hematocrit 43.9 % (37.0-53.0); Hemoglobin 14.4 g/dL (13.5-17.5); IMMATURE GRAN ABSOLUTE AUTO 0.37 K/mm3 (0.00-0.10); IMMATURE GRAN PERCENT AUTO 3 % (0-1); LYMPHOCYTES ABSOLUTE AUTO 1.63 K/mm3 (0.84-5.20); LYMPHOCYTES PERCENT AUTO 11 % (21-46); MONOCYTES ABSOLUTE AUTO 0.84 K/mm3 (0.16-1.47); MONOCYTES PERCENT AUTO 6 % (4-13); Mean Corpuscular HGB Conc 32.8 g/dL (31.5-36.5); Mean Corpuscular Volume 80 fL (80-100); NEUTROPHILS ABSOLUTE AUTO 11.82 K/mm3 (1.96-9.15); NEUTROPHILS PERCENT AUTO 80 % (41-73); NRBC ABSOLUTE 0.00 K/mm3 (0.00-0.02); NRBC Auto 0.0 /100 WBC (0.0-0.2); Platelet Count 343 K/mm3 (150-400); RDW Coefficient Variation 17.7 % (11.7-14.2); RDW Standard Deviation 49.4 fL (35.1-46.3)
[2025-03-05 04:07] LABS: Alanine Aminotransfer (ALT/SGP 24.0 U/L (12-78); Albumin, Blood 2.4 g/dL (3.4-5.0); Albumin/Globulin Ratio 0.5 (0.8-1.8); Anion Gap 13.0 mmol/L (3-11); Aspartate Aminotrans (AST/SGOT 21.0 U/L (12-37); Bilirubin, Total 0.9 mg/dL (0.1-1.0); Blood Urea Nitrogen 33.0 mg/dL (8-24); CO2, Blood 21.0 mmol/L (21-32); Calcium, Blood 8.7 mg/dL (8.5-10.1); Chloride, Blood 115.0 mmol/L (98-108); Creatinine, Blood 0.98 mg/dL (0.60-1.20); Globulin, Blood 4.5 g/dL (2.2-4.0); Glucose, Blood 200.0 mg/dL (70-99); Potassium, Blood 3.7 mmol/L (3.5-5.5); Sodium, Blood 145.0 mmol/L (136-145); Total Protein, Blood 6.9 g/dL (6.4-8.2)
--- NOTE | 2025-03-05 06:35 | NUR ---
SHIFT SUMMARY PT CONTINUES TO BE NONVERBAL, BUT FOLLOWS SOME SIMPLE COMMANDS AT TIMES, FORGETFUL, NEEDS REORIENTING FREQ. PT SELF D/C'D DOBHOFF NGT, NEW ONE INSERTED AND CONFIRMED BY PCXR, TF RESTARTED. SBP >180 AT TIMES T/O NIGHT, INCLUDING THIS AM, HYDRALAZINE GIVEN X 2. BP NOW 167/86. WILL UPDATE DAY RN WITH ALL OUTSTANDING ISSUES AND PROBLEMS TO DATE.
[2025-03-05] MEDS ORDERED: Docusate Sodium Liquid 100 MG UDC PT PRN (11:45)
[2025-03-05] MEDS ORDERED: Multivitamins-Minerals Liquid 15 ML Oral Syringe PT SCH (11:50)
[2025-03-05 12:17] LABS: Anion Gap 10.0 mmol/L (3-11); Blood Urea Nitrogen 47.0 mg/dL (8-24); CO2, Blood 19.0 mmol/L (21-32); Calcium, Blood 9.1 mg/dL (8.5-10.1); Chloride, Blood 117.0 mmol/L (98-108); Creatinine, Blood 1.11 mg/dL (0.60-1.20); Glucose, Blood 228.0 mg/dL (70-99); Potassium, Blood 4.3 mmol/L (3.5-5.5); Sodium, Blood 142.0 mmol/L (136-145)
[2025-03-05 12:19] LABS: Vancomycin, Trough 18.1 ug/mL (5.0-10.0)
[2025-03-05 12:44] LABS: pH Blood Venous 7.42 (7.34-7.37)
[2025-03-05] MEDS ORDERED: Protein Supplement 30 ML UD PT SCH (21:00)
[2025-03-06] VITALS (19 sets, daily range): BP systolic 105–166; BP diastolic 50–89
[2025-03-06 05:37] LABS: Magnesium, Blood 2.2 mg/dL (1.6-2.4)
[2025-03-06 05:38] LABS: Anion Gap 15.0 mmol/L (3-11); Blood Urea Nitrogen 59.0 mg/dL (8-24); CO2, Blood 21.0 mmol/L (21-32); Calcium, Blood 8.5 mg/dL (8.5-10.1); Chloride, Blood 120.0 mmol/L (98-108); Creatinine, Blood 1.27 mg/dL (0.60-1.20); Glucose, Blood 164.0 mg/dL (70-99); Phosphorus, Blood 5.1 mg/dL (2.5-4.9); Potassium, Blood 3.6 mmol/L (3.5-5.5)
[2025-03-06 05:58] LABS: Sodium, Blood 152.0 mmol/L (136-145)
[2025-03-06 07:40] LABS: BASOPHILS ABSOLUTE AUTO 0.06 K/mm3 (0.00-0.23); BASOPHILS PERCENT AUTO 0 % (0-2); EOSINOPHILS ABSOLUTE AUTO 0.01 K/mm3 (0.00-0.68); EOSINOPHILS PERCENT AUTO 0 % (0-6); Hematocrit 42.7 % (37.0-53.0); Hemoglobin 13.9 g/dL (13.5-17.5); IMMATURE GRAN ABSOLUTE AUTO 0.21 K/mm3 (0.00-0.10); IMMATURE GRAN PERCENT AUTO 2 % (0-1); LYMPHOCYTES ABSOLUTE AUTO 1.80 K/mm3 (0.84-5.20); LYMPHOCYTES PERCENT AUTO 13 % (21-46); MONOCYTES ABSOLUTE AUTO 1.02 K/mm3 (0.16-1.47); MONOCYTES PERCENT AUTO 7 % (4-13); Mean Corpuscular HGB Conc 32.6 g/dL (31.5-36.5); Mean Corpuscular Volume 80 fL (80-100); NEUTROPHILS ABSOLUTE AUTO 11.32 K/mm3 (1.96-9.15); NEUTROPHILS PERCENT AUTO 78 % (41-73); NRBC ABSOLUTE 0.00 K/mm3 (0.00-0.02); NRBC Auto 0.0 /100 WBC (0.0-0.2); Platelet Count 384 K/mm3 (150-400); RDW Coefficient Variation 18.1 % (11.7-14.2); RDW Standard Deviation 51.9 fL (35.1-46.3)
[2025-03-06] MEDS ORDERED: Morphine Sulfate 4 MG/1 ML Injection IV PRN (09:35)
--- NOTE | 2025-03-06 11:23 | NUR ---
ASSUMPTION OF CARE ASSUMED CARE OF PATIENT AT APPROXIMATELY 0700. PT RESTING IN BED, SLEEPING BUT AROUSABLE. PT OPENS EYES SPONTANEOUSLY, FOLLOWS DIRECTION ON LEFT SIDE, SQUEEZES HANDS AND WIGGLES TOES ON LEFT, NO MOVEMENT NOTED TO RIGHT ARM OR LEG. PT NONVERBAL. HR 90'S SINUS, MAP >65. PT ON BIPAP AT START OF SHIFT, REMOVED AND PLACED ON OXYMASK AT 8LPM FOR DOBHOFF PLACEMENT, OXYGEN SATURATION >95%. PT TACHYPNEIC WITH RR IN THE 40'S. ABDOMEN SOFT, BOWEL TONES HYPOACTIVE. DOBHOFF PLACED, XRAY OBTAINED, OKAY TO RESUME TUBE FEEDS PER DR. STEWART. GLUCERNA 1.2 STARTED AT 10MLS/HR WITH 200ML Q4H WATER FLUSH. MAGUIRE IN PLACE PATENT DRAINING YELLOW URINE TO GRAVITY. POWERGLIDE IN PLACE TO JOHNNA. BED IN LOWEST POSITION, 1:1 SITTER AT THE BEDSIDE, CARE CONTINUES.
[2025-03-06 14:44] LABS: Anion Gap 10.0 mmol/L (3-11); Blood Urea Nitrogen 65.0 mg/dL (8-24); CO2, Blood 24.0 mmol/L (21-32); Calcium, Blood 8.4 mg/dL (8.5-10.1); Chloride, Blood 124.0 mmol/L (98-108); Creatinine, Blood 1.37 mg/dL (0.60-1.20); Glucose, Blood 221.0 mg/dL (70-99); Potassium, Blood 3.4 mmol/L (3.5-5.5); Sodium, Blood 155.0 mmol/L (136-145)
[2025-03-06 14:47] LABS: Vancomycin, Random 16.2 ug/mL
--- NOTE | 2025-03-06 17:34 | NUR ---
SHIFT SUMMARY PT CONTINUES TO REST IN BED, SLEEPING BUT AROUSABLE. PT OPENS EYES SPONTANEOUSLY, FOLLOWS DIRECTION ON THE LEFT SIDE, NO MOVEMENT ON THE RIGHT. PT IS NONVERBAL AT THIS TIME. HR 90-120'S SINUS, MAP >65. PT ALTERNATING BETWEEN 8L OXYMASK AND BIPAP 10/5 60%. DOBHOFF IN PLACE WITH GLUCERNA 1.2 INFUSING AT GOAL RATE OF 30MLS/HR WITH 200ML WATER FLUSH Q2H, BOWEL TONES PRESENT. MAGUIRE IN PLACE PATENT DRAINING YELLOW URINE TO GRAVITY. POWERGLIDE IN PLACE TO JOHNNA. BED IN LOWEST POSITION, 1:1 SITTER AT THE BEDSIDE, CARE CONTINUES.
[2025-03-06 20:07] LABS: Anion Gap 9.0 mmol/L (3-11); Blood Urea Nitrogen 67.0 mg/dL (8-24); CO2, Blood 25.0 mmol/L (21-32); Calcium, Blood 8.2 mg/dL (8.5-10.1); Chloride, Blood 126.0 mmol/L (98-108); Creatinine, Blood 1.42 mg/dL (0.60-1.20); Glucose, Blood 199.0 mg/dL (70-99); Potassium, Blood 3.9 mmol/L (3.5-5.5); Sodium, Blood 156.0 mmol/L (136-145)
--- NOTE | 2025-03-06 20:13 | NUR ---
ASSUMPTION OF CARE PT SITTING UP IN BED. ALERT BUT DROWSY, FOLLOWS SIMPLE COMMANDS, PERRLA. ON BIPAP R20 10/5 60% WITH SPO2 93%, USE OF ABDOMEN DURING BREATHS, DENIES DISCOMFORT. NICANOR CARE COMPLETED, 200ML OUTPUT OF CLEAR DARK YELLOW URINE. INFORMED PT ON TRANSFER TO PCU 6 AND WHAT TO EXPECT. PT, BELONGINGS, AND CHART PACKED UP AND TAKEN TO NEW ROOM BY PRINCIPAL ACCOUNTS CLERK AND BREAK RN.
[2025-03-06] MEDS ORDERED: LevoFLOXacin 750 MG/D5W 150ML 150 ML IV SCH (22:00)
[2025-03-07 00:20] VITALS: BP 136/67
[2025-03-07 03:57] VITALS: BP 134/67
[2025-03-07 04:06] LABS: BASOPHILS ABSOLUTE AUTO 0.04 K/mm3 (0.00-0.23); BASOPHILS PERCENT AUTO 0 % (0-2); EOSINOPHILS ABSOLUTE AUTO 0.17 K/mm3 (0.00-0.68); EOSINOPHILS PERCENT AUTO 1 % (0-6); Hematocrit 40.9 % (37.0-53.0); Hemoglobin 13.1 g/dL (13.5-17.5); IMMATURE GRAN ABSOLUTE AUTO 0.22 K/mm3 (0.00-0.10); IMMATURE GRAN PERCENT AUTO 1 % (0-1); LYMPHOCYTES ABSOLUTE AUTO 1.61 K/mm3 (0.84-5.20); LYMPHOCYTES PERCENT AUTO 9 % (21-46); MONOCYTES ABSOLUTE AUTO 1.30 K/mm3 (0.16-1.47); MONOCYTES PERCENT AUTO 7 % (4-13); Mean Corpuscular HGB Conc 32.0 g/dL (31.5-36.5); Mean Corpuscular Volume 82 fL (80-100); NEUTROPHILS ABSOLUTE AUTO 15.17 K/mm3 (1.96-9.15); NEUTROPHILS PERCENT AUTO 82 % (41-73); NRBC ABSOLUTE 0.00 K/mm3 (0.00-0.02); NRBC Auto 0.0 /100 WBC (0.0-0.2); Platelet Count 292 K/mm3 (150-400); RDW Coefficient Variation 18.1 % (11.7-14.2); RDW Standard Deviation 53.2 fL (35.1-46.3)
[2025-03-07 04:27] LABS: Alanine Aminotransfer (ALT/SGP 16.0 U/L (12-78); Albumin, Blood 2.0 g/dL (3.4-5.0); Albumin/Globulin Ratio 0.5 (0.8-1.8); Anion Gap 9.0 mmol/L (3-11); Aspartate Aminotrans (AST/SGOT 16.0 U/L (12-37); Bilirubin, Total 0.3 mg/dL (0.1-1.0); Blood Urea Nitrogen 75.0 mg/dL (8-24); CO2, Blood 25.0 mmol/L (21-32); Calcium, Blood 8.0 mg/dL (8.5-10.1); Chloride, Blood 123.0 mmol/L (98-108); Creatinine, Blood 1.53 mg/dL (0.60-1.20); Globulin, Blood 4.0 g/dL (2.2-4.0); Glucose, Blood 225.0 mg/dL (70-99); Potassium, Blood 4.1 mmol/L (3.5-5.5); Sodium, Blood 153.0 mmol/L (136-145); Total Protein, Blood 6.0 g/dL (6.4-8.2)
--- NOTE | 2025-03-07 05:36 | NUR ---
SHIFT SUMMARY: PT ARRIVED TO UNIT FROM ICU THIS SHIFT. PT IS ALERT AND ORIENTED TO SELF BUT IS ONLY ABLE TO COMMUNICATE WITH STAFF BY SQUEEZING STAFF'S HANDS. PT IS NONVERBAL WITH NO GAG REFLEX. R HEMIPLEGIC. PT HAS BEEN ON BIPAP SINCE ARRIVING TO UNIT, WITH RR 30S THROUGHOUT THE SHIFT. TELEMETRY MONITORING IN PLACE, NSR 90s. PT IS STILL NPO WITH NGT FOR TUBE FEEDS. MAGUIRE IN PLACE, PATENT, AND DRAINING. UO COLLECTED SINCE ~9 PM WAS 650CC. PT IS RECIEVING 200CC WATER FLUSHES Q2H THROUGH NGT. BLADDER SCANNED, NO OUTPUT FOUND. ABDOMNEN IS DISTENDED BUT NOT MORE SO SINCE ARRIVAL TO UNIT. SITTER AT BEDSIDE. CALL LIGHT IS WITHIN REACH.
[2025-03-07 09:25] VITALS: BP 143/71
[2025-03-07 11:05] VITALS: BP 143/69
--- NOTE | 2025-03-07 11:51 | NUR ---
THIS RN AND DR. ARAUJO ROUNDED ON PT THIS MORNING TOGETHER TO ASSESS PT. NOTED THIS MORNING PT HAD INCREASED WORK OF BREATHING, TACHYPNEA. MAINTAINING SATURATION 90-93% CONSISTENTLY. PT WAS VERY LETHARGIC, ABLE TO BE ROUSED VIA VERBAL STIMULI BUT ONLY VERY BRIEFLY BEFORE GOING BACK TO SLEEP. SINCE THAT TIME, PT HAS BECOME SLIGHTLY MORE RESPONSIVE TO VERBAL STIMULI BUT STILL ONLY BRIEFLY AND IS NOT VERY RESPONSIVE TO QUESTIONS/DIRECTIONS. RR HAS BEEN >=35 SINCE SHIFT ONSET. SPOKE AGAIN W/ DR. ARAUJO TO INQUIRE ABOUT VBG, FURTHER MEASURES REGARDING RESPIRATORY STATUS. DR. ARUAJO TO LOOK THROUGH CHART, SPEAK WITH ATTENDING AND INPUT ORDERS APPROPRIATE.
[2025-03-07 13:27] LABS: Anion Gap 9.0 mmol/L (3-11); Blood Urea Nitrogen 85.0 mg/dL (8-24); CO2, Blood 23.0 mmol/L (21-32); Calcium, Blood 8.2 mg/dL (8.5-10.1); Chloride, Blood 124.0 mmol/L (98-108); Creatinine, Blood 1.81 mg/dL (0.60-1.20); Glucose, Blood 267.0 mg/dL (70-99); Potassium, Blood 4.0 mmol/L (3.5-5.5); Sodium, Blood 152.0 mmol/L (136-145)
[2025-03-07] MEDS ORDERED: Morphine Sulfate 20 MG/1ML 1 ML Oral Syringe SL PRN (14:35)
[2025-03-07] MEDS ORDERED: LORazepam 2 MG/ML 1ML Injection IV PRN (14:35)
[2025-03-07] MEDS ORDERED: Atropine Sulfate 1% Opth Soln 2ML BTL SL PRN (14:40)
--- NOTE | 2025-03-07 15:17 | NUR ---
GOALS OF CARE: JOINT VISIT WITH DR. ARAUJO AND BEDSIDE RNJOSE. NEPHEW RELL ALATORRE ([phone]) AND RELL'S , TERRI ALATORRE ([phone]) ARE AT BEDSIDE. KUSSMAUL'S BREATHING WITH BIPAP. LETHARGIC. FAMILY AGREEABLE TO CHANGING PLAN OF CARE TO COMFORT MEASURES ONLY. RELL AND TERRI REPORT PT LIVES ALONE AND WILL NOT BE ABLE TO RETURN TO HIS CURRENT LIVING ARRANGEMENTS. XANDER HAS NEVER OR HAD CHILDREN. ONLY LIVING FAMILY ARE HIS NEPHEWS. PLAN: PREMEDICATE FOR BIPAP REMOVAL AND PLACE ON OXYGEN HF NC. D/C TUBE FEEDINGS AND OTHER CURRATIVE MEASURES. PROVIDER PLACING COMFORT ORDERS. UPDATE PROVIDED TO CARE MANAGEMENT, SUPERVISOR LEAD REFINERY AND RESPIRATORY THERAPY. PC TO REMAIN AVAILABLE NEEDED.
--- NOTE | 2025-03-07 16:08 | NUR ---
UPDATED PRIVACY OFFICER RE: CHANGE IN PT STATUS. PT APPEARS TO BE IMMINENT TO END OF LIFE.
--- NOTE | 2025-03-07 16:24 | NUR ---
shift summary. pt condition has remain unchanged throughout much of shift. made comfort care this afternoon after conversation with palliative care, dr. nassar, family. since that time, pt has been taken off of the bipap and put on 6 l o2 via nc, ng tube has been removed. pt remains very lethargic, able to be very slightly roused to verbal stimuli but does not remain awake for long is very minimally responsive when he is awake. doing q1 roxanol at this time d/t air hunger, increased work of breathing, tachypnea. pt remains tachypneic with increased work of breathing at this time. does not appear to be in acute pain/distress. bed locked in lowest position. call light left wtihin reach. bed alarm active for safety. continuing to monitor.
--- NOTE | 2025-03-07 23:21 | NUR ---
PT IN BED, APPEARS TO BE RESTING RESTING COMFORTABLY AT SHIFT CHANGE. RESPIRATION RATE 20. COMFORT CARE DOCUMENTATION DONE AT 1999. PT HAD BEEN REPOSITIONED. PT CONTINUES TO APPEAR TO BE COMFORTABLE WITH RR 16 AT 1999. RR RATE DECREASE AT 2099 TO 12. 5 RR RATE DECREASED TO 8. FAMILY (WALLY NAGYQ CALLED AT 2199 REGARDING PT DECLINE, IF THEY WANTED TO BE BEDSIDE. PT AT 2212. 2 RN CHECK PERFORMED WITH LIMA STOCK AND MYSELF. FAMILY CONTACTED AGAIN TO INFORM THEM OF PT PASSING, FAMILY STILL ON THE WAY IN TO SEE PT AND ASK QUESTIONS REGARDING PROCESS. DR. MARY INFORMED OF PT AT 2229. NO HOME SELECTED AT TIME OF . FAMILY GIVEN PHONE NUMBERS FOR AREA HOMES. FAMILY WILL CONTACT HOSPITAL ONCE HOME IS CHOSEN TONRO[facility]. BELONGINGS AT PT BEDSIDE.
--- NOTE | 2025-03-08 03:51 | NUR ---
POST-MORTEM CARE DONE AT 2245. IV LINES AND MAGUIRE REMOVED S/P BODY BEING RELEASED FOR AUTO BODY MAN.
== END 2025-03-08 01:40 | DRG 64 ==
LOC: ER 20:21 → ICUE 22:56 → PCU 03-06 19:56
PROVIDERS: Emergency Medicine; Hospitalist; Internal Medicine Critical Care Medicine; ADMIT Student in an Organized Health Care Education/Training Program
PROC: 3E03329 Introduction of Other Anti-infective into Peripheral Vein, Percutaneous Approach (ICD-10-PCS; principal; 2025-03-01)
PROC: 0BH17EZ Insertion of Endotracheal Airway into Trachea, Via Natural or Artificial Opening (ICD-10-PCS; 2025-03-01)
PROC: 5A1935Z Respiratory Ventilation, Less than 24 Consecutive Hours (ICD-10-PCS; 2025-03-01)
PROC: 5A09457 Assistance with Respiratory Ventilation, 24-96 Consecutive Hours, Continuous Positive Airway Pressure (ICD-10-PCS; 2025-03-01)
PROC: 0T9B70Z Drainage of Bladder with Drainage Device, Via Natural or Artificial Opening (ICD-10-PCS; 2025-03-01)
PROC: 0DH67UZ Insertion of Feeding Device into Stomach, Via Natural or Artificial Opening (ICD-10-PCS; 2025-03-02)
PROC: 3E0G76Z Introduction of Nutritional Substance into Upper GI, Via Natural or Artificial Opening (ICD-10-PCS; 2025-03-04)
DX: I63.9 Cerebral infarction, unspecified (principal); A41.50 Gram-negative sepsis, unspecified; G92.8 Other toxic encephalopathy; J18.9 Pneumonia, unspecified organism; R65.20 Severe sepsis without septic shock; J96.01 Acute respiratory failure with hypoxia; I50.21 Acute systolic (congestive) heart failure; M62.82 Rhabdomyolysis; G81.01 Flaccid hemiplegia affecting right dominant side; N10 Acute pyelonephritis; Z66 Do not resuscitate; Z51.5 Encounter for palliative care; E11.51 Type 2 diabetes mellitus with diabetic peripheral angiopathy without gangrene; E78.5 Hyperlipidemia, unspecified; K76.9 Liver disease, unspecified; R13.10 Dysphagia, unspecified; I27.20 Pulmonary hypertension, unspecified; S00.81XA Abrasion of other part of head, initial encounter; I11.0 Hypertensive heart disease with heart failure; R47.01 Aphasia; F32.A Depression, unspecified; I25.10 Atherosclerotic heart disease of native coronary artery without angina pectoris; I48.0 Paroxysmal atrial fibrillation; S20.213A Contusion of bilateral front wall of thorax, initial encounter; S70.01XA Contusion of right hip, initial encounter; S30.0XXA Contusion of lower back and pelvis, initial encounter; J44.9 Chronic obstructive pulmonary disease, unspecified; E03.9 Hypothyroidism, unspecified; E11.65 Type 2 diabetes mellitus with hyperglycemia; E11.42 Type 2 diabetes mellitus with diabetic polyneuropathy; Z95.1 Presence of aortocoronary bypass graft; Z87.891 Personal history of nicotine dependence; Z95.5 Presence of coronary angioplasty implant and graft; Z96.651 Presence of right artificial knee joint; Z88.8 Allergy status to other drugs, medicaments and biological substances; Z79.4 Long term (current) use of insulin; Z79.02 Long term (current) use of antithrombotics/antiplatelets; Z79.82 Long term (current) use of aspirin; Z79.899 Other long term (current) drug therapy; W18.30XA Fall on same level, unspecified, initial encounter; Z95.0 Presence of cardiac pacemaker; Z89.511 Acquired absence of right leg below knee; Z60.2 Problems related to living alone; Z86.14 Personal history of Methicillin resistant Staphylococcus aureus infection
CPT/HCPCS: 31720; 36415; 51702; 70450; 70551; 71045; 71260; 72125; 74177; 80048; 80053; 80202; 80320; 81001; 82010; 82550; 82803; 82947; 83605; 83690; 83735; 83874; 83880; 84100; 84145; 84439; 84443; 85025; 85610; 85730; 87040; 87070; 87077; 87086; 87147; 87186; 87205; 92526; 92610; 93005; 93010; 94002; 94003; 94640; 94660; 94762; 97112; 97162; 97166; 97530; 99291-25; 99292; A9270; C1751; C8929; G0390; J0360; J1650; J1815; J1956; J2270; J2470; J2704; J3010; J3373; J3475; J3480; J7030; J7040; J7050; J7060; Q9957; Q9967